=== PATIENT | female | born 1945 | race Caucasian/White ===

== ENCOUNTER → 2021-02-02 08:41 | Outpatient (BNVA) | payer MEDICARE, OTHER, SELFPAY | PROVIDERS: Referring Provider Nurse Practitioner Family; Visit Provider Orthopaedic Surgery | DX: S22.058A Other fracture of T5-T6 vertebra, initial encounter for closed fracture (principal); X58.XXXA Exposure to other specified factors, initial encounter; M41.84 Other forms of scoliosis, thoracic region | CPT/HCPCS: 72072 ==

== ENCOUNTER → 2021-02-06 09:28 | Outpatient (BNVA) | payer MEDICARE, OTHER, SELFPAY | PROVIDERS: Visit Provider Orthopaedic Surgery | DX: Z01.812 Encounter for preprocedural laboratory examination (principal); Z20.822 Contact with and (suspected) exposure to COVID-19 | CPT/HCPCS: 87635 ==

== ENCOUNTER 2021-02-08 08:41 | Outpatient (CLI) | payer MEDICARE, OTHER, SELFPAY ==
--- NOTE | 2021-02-08 08:56 | MR_ITS ---
WS: [id number] MRI THORACIC SPINE WITHOUT CONTRAST TECHNIQUE: Sagittal T1, T2 and STIR imaging. Axial T2 imaging. Noncontrast imaging obtained. CLINICAL INFORMATION: S22.000A - Wedge compression fracture of unspecified thor... COMPARISON: Outside MRI January 27, 2021 FINDINGS: Thoracic curve convex right. Focal thoracic kyphosis at the T5 level due to chronic appearing brennen lety fracture with vertebral plana configuration. Associated sclerosis T5 vertebral body. Associated retropulsion impinges the thoracic cord at the T5 level with moderate central canal stenosis. Mild fl attening of the thoracic cord. Cord signal appears normal. Retropulsion slightly eccentric to the rig ht with impingement on the right hemicord at the T4-5 level. Additional suspected mild acute to subacute compression fractures involving the superior endplates at T12 and L1 compression appears new since January 27, 2021. L1 is only included on the vehicle fuel systems converter imagin g previously. Moderate to severe bilateral bony foraminal narrowing T5-T6. Moderate right T4-5 bony foraminal narro wing. Moderate facet arthropathy in the lower thoracic spine. Otherwise no significant disc protrusions or extrusions. Mild bony foraminal narrowing left T1-T2, ri ght T2-3, right T3-4, bilateral T10-11, and left T11-12. Normal caliber thoracic aorta. Adrenal glands are normal. MR/MR thoracic spin wo con* [id number] IMPRESSION: 1. Moderate thoracic kyphosis at the T5 level with chronic appearing compressi on fracture with vertebral plana configuration. Retropulsion results in moderat e central canal stenosis with indentation and slight flattening of the cervical cord. Cord signal remains normal. This appears stable since outside study. 2. Suspected recent acute to subacute mild compression superior endplates at T 12 and L1 with trace edema. This appears new or better seen compared to the rec ent outside study. 3. Moderate to severe bilateral T5-T6 bony foraminal narrowing. 4. Otherwise mild bony foraminal narrowing described above.
--- NOTE | 2021-02-08 08:56 | MR_ITS ---
WS: [id number] MRI CERVICAL SPINE NONCONTRAST TECHNIQUE: Sagittal T1, T2 and STIR imaging. Axial T2, gradient, and fiesta imaging. CLINICAL INFORMATION: S22.000A - Wedge compression fracture of unspecified thor... COMPARISON: None. FINDINGS: Normal cervical alignment. Disc bulging worse at C5-6. Cord signal is normal. C2-C3: Normal. C3-C4: Normal. C4-C5: Mild disc bulging with osteophytic ridging. Mild facet arthropathy. Mild left foraminal narrow ing. Spinal canal is patent. C5-C6: Shallow disc osteophyte protrusion with slight impingement on the cervical cord. Mild central canal stenosis. Mild to moderate left and mild right bony foraminal narrowing. Mild facet arthropathy . C6-C7: Mild disc bulging. Slight effacement of ventral thecal sac. Mild left and no significant right foraminal narrowing. Spinal canal is patent. C7-T1: Mild bilateral bony foraminal narrowing right greater than left. Spinal canal is patent. Visualized brain stem structures: Normal. Prevertebral soft tissues: Normal. MR/MR cervical spin wo con* [id number] IMPRESSION: 1. Normal cervical alignment. Cord signal is normal. 2. Mild disc bulging worse at C5-6 with slight contact of the cervical cord ec centric to the left with mild central canal stenosis. 3. Mild to moderate bony foraminal narrowing left C5-6. 4. Mild bony foraminal narrowing left C4-5, left C6-7, and right C7-T1
--- NOTE | 2021-02-08 10:00 | CT_ITS ---
WS: [id number] CT THORACIC SPINE TECHNIQUE: Noncontrast CT of the thoracic spine with coronal and sagittal reformatted images. CLINICAL INFORMATION: S22.000A - Wedge compression fracture of unspecified thor... COMPARISON: None. DLP: 1154.[address] scans at [facility] use at least one of these dose optimization techniques: automated e xposure control; mA and/or kV adjustment per patient size (includes targeted exams where dose is matc hed to clinical indication); or iterative reconstruction. FINDINGS: Thoracic curve convex right. Focal thoracic kyphosis at the T5 level due to chronic appearing brennen lety fracture with vertebral plana configuration and sclerosis. Associated retropulsion impinges the thoracic cord at the T5 level with moderate central canal stenosis better seen on the MRI. Pedicles a ppear intact. Persistent fracture cleft involving the anterior T5 vertebral body extending posteriorl y. Mild flattening of the thoracic cord. Retropulsion slightly eccentric to the right at the T4-5 level. Severe bilateral T5-T6 bony foraminal narrowing. Mild recent appearing compression deformities T12 and L1 superior endplates. CT/CT thoracic spin wo con* [id number] IMPRESSION: 1. Mild thoracic curve and thoracic kyphosis centered at the T5 level. Chronic appearing compression fracture T5 with vertebral plana configuration and scler osis. 2. Associated retropulsion T5 vertebral body with moderate central canal steno sis. Pedicles appear intact. 3. Severe bilateral C5-C6 bony foraminal narrowing. 4. Mild recent appearing compression fractures superior endplates T12 and L1 a lso seen on the MRI.
--- NOTE | 2021-02-08 10:15 | CT_ITS ---
WS: [id number] CT CERVICAL SPINE TECHNIQUE: Noncontrast CT of the cervical spine with coronal and sagittal reformatted images. CLINICAL INFORMATION: S22.000A - Wedge compression fracture of unspecified thor... COMPARISON: None. DLP: 1549.[address] scans at [facility] use at least one of these dose optimization techniques: automated e xposure control; mA and/or kV adjustment per patient size (includes targeted exams where dose is matc hed to clinical indication); or iterative reconstruction. FINDINGS: Mild cervical curve. Disc bulging worse at C5-6. Disc desiccation worse at C6-7. Slight anterior hype rtrophic changes. Mastoid air cells are well aerated. C2-C3: Normal. C3-C4: Mild facet arthropathy. Spinal canal and foramen are patent. C4-C5: Tiny central disc osteophyte complex. Spinal canal is patent. Moderate left and no significant right foraminal narrowing. Moderate facet arthropathy. C5-C6: Mild disc bulging with osteophytic ridging. Tiny shallow central protrusion. Mild central pattie l stenosis. Moderate left and mild right bony foraminal narrowing. Mild facet arthropathy. C6-C7: Disc osteophyte complex with endplate ridging. Tiny central protrusion. Mild central canal carmen nosis. Mild left and no significant right foraminal narrowing. C7-T1: Mild disc osteophytic ridging. Mild bilateral bony foraminal narrowing right greater than left . Mild left T1-2 bony foraminal narrowing. Low-attenuation 10 and 12 mm right thyroid nodules. CT/CT cervical spin wo con* [id number] IMPRESSION: 1. Mild cervical curve. Disc bulging worse at C5-C6. Degenerative disc disease worse at C6-7. 2. Mild central canal stenosis C5-C6 and C6-C7. 3. Mild to moderate bony foraminal narrowing worse at left C4-5, left C5-6, an d right C7-T1. 4. Mild left T1-T2 bony foraminal narrowing. 5. Low-attenuation 10 and 12 mm right thyroid nodules. This can be followed up with ultrasound.
== END 2021-02-08 08:42 | disposition home or self-care (01) ==
PROVIDERS: Visit Provider Orthopaedic Surgery
DX: M50.223 Other cervical disc displacement at C6-C7 level (principal); E04.2 Nontoxic multinodular goiter; S22.088A Other fracture of T11-T12 vertebra, initial encounter for closed fracture; S32.018A Other fracture of first lumbar vertebra, initial encounter for closed fracture; X58.XXXA Exposure to other specified factors, initial encounter; M40.204 Unspecified kyphosis, thoracic region
CPT/HCPCS: 72125; 72128; 72141; 72146

== ENCOUNTER 2021-02-10 13:18 | Inpatient (IN) | payer MEDICARE, OTHER, SELFPAY ==
[2021-02-09 12:21] VITALS: BMI 29.2
--- NOTE | 2021-02-09 12:29 | ECG_ITS ---
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 Measurements Intervals [place] Rate: 91 P: 54 UT: 171 QRS: 26 QRSD: 85 T: 54 QT: 377 QTc: 464 Interpretive Statements SINUS RHYTHM POSSIBLE LEFT ATRIAL ENLARGEMENT [-0.1mV P-WAVE IN V1/V2] POSSIBLE INFERIOR MYOCARDIAL INFARCTION , PROBABLY OLD [30 ms Q WAVE IN II/aVF] No previous ECG available for comparison Electronically Signed On 02-10-2021 19:19:43 CDT by Claudia Fay M.D. [email or web address]
[2021-02-09 13:04] LABS: Basophils # 0.1 10^3/uL (0.0-0.1); Basophils % 0.5 %; Eosinophils # 0.2 10^3/uL (0.0-0.8); Eosinophils % 1.7 %; Hematocrit 40.3 % (37.0-47.0); Hemoglobin 13.7 g/dL (11.5-15.3); Lymphocytes # 2.7 10^3/uL (0.8-4.8); Lymphocytes % 21.7 %; Mean Corpuscular Hemoglobin 31.5 pg (28.0-34.0); Mean Corpuscular Volume 92.6 fl (81-99); Mean Platelet Volume 10.4 fL (7.4-10.4); Monocytes # 0.7 10^3/uL (0.2-0.9); Monocytes % 5.8 %; Neutrophils # 8.73 10^3/uL (1.8-7.7); Neutrophils % 69.7 %; Nucleated Red Blood Cells % 0 %; Platelet Count 297 10^3/cmm (130-400); Red Blood Count 4.35 10^6/uL (4.1-5.3); Red Cell Distribution Width 12.4 % (12.1-15.1); White Blood Count 12.5 10^3/uL (4.0-10.0)
[2021-02-09 13:25] LABS: Blood Urea Nitrogen 22 mg/dL (8-23); Calcium 8.8 mg/dL (8.5-10.5); Carbon Dioxide 26 mmol/L (22-29); Chloride 98 mmol/L (98-107); Creatinine Clr Calc Pharmacy 62.0065; Glucose 315 mg/dL (65-115); Osmolality Calculated 301 mOsm/kg (285-295); Sodium 138 mmol/L (136-145)
--- NOTE | 2021-02-09 13:45 | P.ANESASSM_ITS ---
Pre-Anesthetic Assessment Pre-Anesthetic Assessment: Height/Weight: Height 1.63 m Weight 77.111 kg Proposed Procedure: Operation Date: 02/10/21 10:10 Proposed Procedures p Spinal Fusion Posterior Spinal Fusion T2-T8 with decompression at T5 Arthrodesis T2 T6 T7 T8 T5 intrumentation [id number] 34713 57391 24677 74770 81156 05006 S22.00A(Not Applicable) - Sepncer H Nancy, DO Was Beta Josselyn taken within 24 hours: N/A Was Clonidine taken within 24 hours: N/A Social: Social History: No alcohol and No tobacco Exam: Pre-Anes Outpt Exam: alert, oriented x 3, clear to auscultation bilaterally and regular rate & rhythm Airway: Submandibular: WNL MP: 2 CV/HEM: CV/HEM: HTN Metabolic: Metabolic: DM Musc/skel: Musc/skel: Lower Back Pain and Weakness Anesthetic Plan: ASA status: 3 Anesthesia: General Other: A.line Risk of > 500 ml blood loss (7ml/kg in children): No PFSH Anesthesia PFSH: Social History Smoking and tobacco status: never smoked Data Anesthesia CBC & Chem 7: 02/09/21 12:45 02/09/21 12:45 Other Labs: Laboratory Results - last 48 hr 02/09/21 02/09/21 12:45 12:45 WBC 12.5 H RBC 4.35 Hgb 13.7 Hct 40.3 MCV 92.6 MCH 31.5 MCHC 34.0 RDW 12.4 Plt Count 297 MPV 10.4 Neut % (Auto) 69.7 Lymph % (Auto) 21.7 [place] % (Auto) 5.8 Eos % (Auto) 1.7 Baso % (Auto) 0.5 Neut # (Auto) 8.73 H Lymph # (Auto) 2.7 [place] # (Auto) 0.7 Eos # (Auto) 0.2 Baso # (Auto) 0.1 Nucleated RBC % (auto) 0 Nucleated RBCs # 0.0 Sodium 138 Chloride 98 Carbon Dioxide 26 BUN 22 Creatinine 0.7 GFR Calculation Not Reportable Calcium 8.8 Cardiac Studies: No Data to Display
[2021-02-09 13:48] LABS: Anion Gap 17.7 (5-19); Potassium 3.7 mmol/L (3.5-5.1)
[2021-02-10] VITALS (18 sets, daily range): BP systolic 161–210; BP diastolic 88–106; PULSE 89–111; RESP 14–22; TEMP 36.2–37.2; O2SAT 91–97
--- NOTE | 2021-02-10 | XR_ITS ---
WS: [id number] XR thoracic spine 1Vport [id number] REASON FOR EXAM: ADELA OR PICS FINDINGS: Multiple PA images during thoracic spine surgery. Bilateral pedicle screws placed in the mid thoracic spine between T3 and T9. Surgical appliances appear in proper position. XR/XR thoracic spine 1Vport [id number] IMPRESSION: Direct cystic spine pedicle screw placement as above.
--- NOTE | 2021-02-10 | SCC_ITS ---
Procedure Done: 1. T2-T8 Posterior spine fusion 2. T2-T8 Instrumentations 3. T5 laminectomy with partial facetectomies bilateral 4. Use of computer navigation/stereotactactic 5. use of allograft 6. Use of autograft 16 seconds of fluoroscopic guidance, for a cumulative dose of 22.7 mGy, was provided to Dr. Cruz by the radiology department. C-arm images of the thoracic spine were saved for the patient's permanent record. MARTHA
--- NOTE | 2021-02-10 09:20 | P.ANESUD_ITS ---
Pre-Anesthetic Update Pre-Anesthetic Assessment: Date of Surgery/Procedure: 02/10/21 Preop Kandy gnosis: T5 compression fracture Proposed Procedure: Operation Date: 02/10/21 10:10 Proposed Procedures p Spinal Fusion Posterior Spinal Fusion T2-T8 with decompression at T5 Arthrodesis T2 T6 T7 T8 T5 intrumentation [id number] [id number] 70952 06831 48401 53852 49337 78776 S22.00A(Not Applicable) - Spencer H Nancy, DO Any changes to Pre-Anesthetic Assessment?: No Labs Last 48hrs: Laboratory Results - last 48 hr 02/09/21 02/09/21 12:45 12:45 WBC 12.5 H RBC 4.35 Hgb 13.7 Hct 40.3 MCV 92.6 MCH 31.5 MCHC 34.0 RDW 12.4 Plt Count 297 MPV 10.4 Neut % (Auto) 69.7 Lymph % (Auto) 21.7 [place] % (Auto) 5.8 Eos % (Auto) 1.7 Baso % (Auto) 0.5 Neut # (Auto) 8.73 H Lymph # (Auto) 2.7 [place] # (Auto) 0.7 Eos # (Auto) 0.2 Baso # (Auto) 0.1 Nucleated RBC % (a uto) 0 Nucleated RBCs # 0.0 Sodium 138 Potassium 3.7 Chloride 98 Carbon Dioxide 26 Anion Gap 17.7 BUN 22 Creatinine 0.7 GFR Calculation Not Reportable Glucose 315 H Calculated Osmolal ity 301 H Calcium 8.8 Exam: Pre-Anes Outpt Exam: alert, oriented x 3, clear to auscultation bilaterally and regular rate & rhythm Cardiac Studies: No Data to Display
[2021-02-10 09:28] LABS: Glucose Point of Care 230 mg/dL (70-110)
[2021-02-10] MEDS: sodium chloride 0.9% 1,000 ML 30 ML IV (09:28)
--- NOTE | 2021-02-10 09:28 | W.PM.OPSUD ---
Surgery/Procedure H&P Update DATE OF PROCEDURE: February 10, 2021 DATE H&P PERFORMED: 02/02/21 H&P UPDATE INFORMATION: I have reviewed H&P completed within last 30 days, I have examined patient prior to procedure and No changes to prior documentation PREOP DIAGNOSIS: T5 compression fracture PLANNED PROCEDURE: Operation Date: 02/10/21 10:10 Proposed Procedures p Spinal Fusion Posterior Spinal Fusion T2-T8 with decompression at T5 Arthrodesis T2 T6 T7 T8 T5 intrumentation [id number] 21466 95787 79689 54891 02861 [id number] 91674 S22.00A(Not Applicable) - Spencer Cruz DO
[2021-02-10] MEDS: insulin regular-human 100 units/1 mL 10 UNIT IVP (09:42)
[2021-02-10 10:55] LABS: Glucose Point of Care 129 mg/dL (70-110)
--- NOTE | 2021-02-10 10:58 | SUR.OPER ---
family updated of surgical status
[2021-02-10] MEDS: vancomycin 1,000 MG SDV 2000 MG XX (11:08)
--- NOTE | 2021-02-10 12:15 | SUR.OPER ---
family updated with surgical status
[2021-02-10 12:42] LABS: Glucose Point of Care 180 mg/dL (70-110)
--- NOTE | 2021-02-10 12:58 | SUR.OPER ---
family updated of surgical status
--- NOTE | 2021-02-10 13:39 | P.OP_ITS ---
Operative Report Date of procedure: February 10, 2021 Pre-op Diagnosis: T5 compression fracture Post-op diagnosis: same Procedure Done: 1. T2-T8 Posterior spine fusion 2. T2-T8 Instrumentations 3. T5 laminectomy with partial facetectomies bilateral 4. Use of computer navigation/stereotactactic 5. use of allograft 6. Use of autograft Surgeon: Spencer Cruz Anesthesia: General Estimated blood loss (mL): 200 Condition: stable Disposition: PACU Procedure: 1. T2-T8 Posterior spine fusion 2. T2-T8 Instrumentations 3. T5 laminectomy with partial facetectomies 4. Use of computer navigation/stereotactactic 5. use of allograft 6. Use of autograft Patient was brought to the operative suite. After undergoing anesthesia patient was placed in the prone position. All areas of impingement were well-padded. Patient was then prepped and draped in normal sterile fashion. Skin incision was made from T2 down to T9. Subperiosteal dissection was made from the TPs of T2 down to T8. A spinous process clamp hooked to a fiducial was then attached in order to facil itate using computer navigation during the case. The C arm then did the spin. Information was then loaded into the computer. And this was able to facilitate placing screws using navigation. Attention was then brought to placing screws starting at T8. The drill was used to start the hole and then the gearshift that was linked to the computer navigation was then used to find the path through the pedicle. A ball probe was then used to feel to ensure that the pedicle was not breached. And then the screws were placed using computer navigation linked to the computer. The steps were repeated from T8-T6. And then T5 was skipped. And then the screws were placed from T6 up to T2. After the screws were placed attention was then brought to doing the laminectomy. A microscope was brought in and the laminectomy of T5 was completed using high-speed bur Kerrison rongeurs and curved curettes. Once the laminectomy was completed partial facetectomies were performed bilaterally. Once adequate decompression was completed then attention was then brought to placing the rods. Rods were then bent and placed into the pedicle screws from T2 down to T8. And caps were then placed on top of the rods. And the rods were torqued this was done bilaterally and caps were torqued down. Next attention was brought to irrigating the wound once wound was irrigated then the lamina from T2 down to T8 was decorticated with a high-speed bur and then the OsteoMed bone graft was packed into the bone in order to facilitate getting a fusion. Vancomycin powder was then placed a Hemovac drain was placed and the wound was closed with Vicryl 0 Stratus fix. Then 2-0 Vicryl was used followed by 2 oh strata fix Monocryl and glue. And then the wound was closed and sealed with a Silverlon dressing. And the patient was transferred to the PACU in stable condition.
[2021-02-10] MEDS: fentaNYL 50 mcg/mL INJ 2mL IVP ×2 (13:59→14:17)
--- NOTE | 2021-02-10 14:09 | ANE.PACU2 ---
Inpatient post-anesthesia follow up: Airway intact: Yes Vital signs: Temperature 97.1 F Pulse Rate 93 Respiratory Rate 16 Blood Pressure 181/100 Pulse Oximetry 94 Oxygen Delivery Me thod Room Air Oxygen Flow Rate Fraction of Inspir ed Oxygen Hydration adequate: Yes Nausea and vomiting: No Pain level: 3 Mental status: Baseline Additional Comments: Hypertension
[2021-02-10] MEDS: gabapentin 300 mg Capsule PO ×2 (15:22→21:04)
[2021-02-10] MEDS: lactated ringers 1,000 ML 90 ML IV (15:22)
[2021-02-10] MEDS: morphine 4 mg/mL SDV 1 mL 2 MG IVP ×2 (15:27→23:08)
[2021-02-10 15:52] LABS: Glucose Point of Care 271 mg/dL (70-110)
--- NOTE | 2021-02-10 16:20 | PM.CONSULT ---
Providers/Reason For Consult Consulting Physician/Specialty*: Hospitalist Reason for Consult*: Medical management Attending Physician: Spencer Cruz DO History of Present Illness History of Present Illness Very pleasant 75-year-old lady with history of DM 2 with peripheral neuropathy, HTN, HLD, petit mal seizures, who did not improve with conservative management of T5 compression fracture with continued pain, progressive weakness, due to which he underwent multi vertebral posterior spine fusion, T5 laminectomy with uneventful procedure, with about 200 Tylenol blood loss, currently is back up on medical surgical floor. Consultation was requested to hospitalist service due to diabetes and other medical comorbidities. She is doing well postoperatively but feels her mouth is dry, she is thirsty. Feels hot, asking to remove several of the blankets. She states that preoperatively she was otherwise at baseline state of health. Her son is accompanying her, corroborating her history. States diabetes been well controlled. She takes insulin, both short and long-acting, as well as semaglutide. She occasionally gets low blood sugars which she states she feels. Review of Systems Const: Denies: fever(s), chills, body aches or malaise Eyes: Denies: change in vision or eye redness ENMT: Denies: throat pain, oral sores or ear or mastoid pain Card: Denies: chest pain, edema, pre-syncope or dyspnea on exertion Resp: Denies: dyspnea, productive cough, change in phlegm color or hemoptysis GI: Denies: abdominal pain, nausea, vomiting, diarrhea, constipation, hematochezia or melena : Denies: flank pain, urinary frequency or hematuria Musc: Reports: back pain; Denies: joint swelling or joint redness Skin/Breast: Denies: rash, sores or new lesions Neuro: Denies: headache(s), numbness in extremities, weakness in extremities, dizziness, confusion or seizure-like activity Endo: Denies: polyuria or polydipsia Gregory/Lymph: Denies: easy bleeding or purpura All/Imm: Denies: urticaria, throat swelling or tongue swelling Meds/Allergies Home Medications and Allergies Home Medications Medication Instructions Recorded Confirmed Last Taken Type TLSO brace #1 ea 02/02/21 02/02/21 Unknown Rx Wheel Chair #1 ea 02/02/21 02/02/21 Unknown Rx atorvastatin 10 mg tablet 10 mg PO DAILY 02/02/21 02/10/21 02/09/21 History erenumab-aooe 70 mg/mL 70 mg SUBCUT .monthly ml 02/02/21 02/10/21 02/03/21 History subcutaneous auto-injector ethosuximide 250 mg capsule 250 mg PO QID cap 02/02/21 02/10/21 02/09/21 History gabapentin 300 mg capsule 300 mg PO TID 02/02/21 02/10/21 02/09/21 History insulin aspart U-100 100 unit/mL 24 unit SUBCUT TID ml 02/02/21 02/10/21 02/09/21 History (3 mL) subcutaneous pen insulin glargine 100 unit/mL 55 unit SUBCUT DAILY ml 02/02/21 02/10/21 02/09/21 History subcutaneous solution lisinopril 40 mg tablet 40 mg PO DAILY 02/02/21 02/10/21 02/09/21 History meloxicam 15 mg tablet 15 mg PO DAILY 02/02/21 02/10/21 02/09/21 History semaglutide 0.25 mg SUBCUT .weekly ml 02/02/21 02/10/21 02/06/21 History cyanocobalamin (vitamin B-12) DIRECTED 02/09/21 Unknown History hydrochlorothiazide 25 mg PO DAILY 02/09/21 02/10/21 02/09/21 History venlafaxine 150 mg PO DAILY 02/09/21 02/10/21 02/09/21 History verapamil 240 mg PO DAILY 02/09/21 02/10/21 02/09/21 History Allergies Allergy/AdvReac Type Severity Reaction Status Date / Time sulfamethoxazole Allergy unknown Verified 02/10/21 09:01 [From ] trimethoprim [From ] Allergy unknown Verified 02/10/21 09:01 Current Medications Current Medications Generic Name Dose Route Start Last Admin Trade Name Goranq PRN Reason Stop Dose Admin Gabapentin 300 mg 02/10/21 15:00 02/10/21 15:22 Gabapentin 300 Mg Capsule PO 300 mg TID SHARONA Administration Lactated Ringer's 1,000 mls @ 90 mls/hr 02/10/21 13:30 02/10/21 15:22 Lactated Ringers IV 90 mls/hr .[id number] SHARONA Administration Insulin Aspart 24 unit 02/10/21 15:00 02/10/21 16:14 Insulin Aspart 100 Unit/1 Ml SUBCUT 24 unit TID SHARONA Administration Morphine Sulfate 2 mg 02/10/21 13:26 02/10/21 15:27 Morphine 4 Mg/Ml Sdv 1 Ml IVP 2 mg Q4H PRN Administration SEVERE PAIN PFSH Acute PFSH: Medical History Diabetes Hypercholesteremia Hypertension Seasonal allergies Seizure disorder Vitamin D deficiency Surgical History H/O basal cell carcinoma excision H/O total hysterectomy Family History Other No significant family history Social History Smoking and tobacco status: never smoked Alcohol intake: never Substance/Drug Use: never Lives independently: Yes Household members: family Marital status: Vitals/I&O/Wt Last Vital Signs Temp 97.8 F 02/10/21 15:27 Pulse 102 H 02/10/21 15:40 Resp 17 02/10/21 15:40 BP 179/89 02/10/21 15:40 Pulse Ox 94 02/10/21 15:40 02/10/21 02/10/21 02/10/21 06:59 14:59 22:59 Intake Total 1060 / 1060 Output Total 950 / 950 Balance 110 / 110 Weight last 48 hrs Weight 77.111 kg Physical Exam Narrative: EXAM NARRATIVE: Son at bedside. Const: COMMON NORMALS: no acute distress and patient oriented x3 GENERAL APPEARANCE: lethargic (Sleepy but wakes up easily.) ORIENTATION/CONSCIOUSNESS: Yes lethargic (Sleepy but wakes up easily.) HENMT: COMMON NORMALS: oropharynx normal Neck/C-Spine: COMMON NORMALS: no JVD Resp: COMMON NORMALS: normal respiratory effort and clear to auscultation bilaterally AUSCULTATION: clear to auscultation bilaterally Cardio: COMMON NORMALS: no JVD, regular rhythm, S1 normal heart sound present, S2 normal heart sound present and No murmurs present (Cardio) RHYTHM: regular rhythm HEART SOUNDS: S1 normal heart sound present and S2 normal heart sound present GI: COMMON NORMALS: Normal to inspection, nondistended, normoactive bowel sounds present, Soft to palpation and non-tender PALPATION: Yes Soft to palpation Back/Pelvis: OTHER: Drain with sanguinous drainage Extremity: COMMON NORMALS: no joint enlargement and no pedal edema Neuro: COMMON NORMALS: patient oriented x3 and moves all extremities SENSORIUM/ORIENTATION: Yes lethargic (Sleepy but wakes up easily.) Skin: COMMON NORMALS: no rashes or lesions noted GENERAL SKIN EXAM: no rashes or lesions noted Urinary Catheter Management^: Marshall: Cath Placed During This Visit: yes Urinary Catheter Date of Insertion: 02/10/21 Urinary Catheter Time of Insertion: 10:30 A&P Assessment and plan (1) S/P fusion of thoracic spine: Uneventful. About 200 cc blood loss. Drain in place. Continue incentive spirometer. Pain control as needed. Tomorrow consider remove Marshall. PT. Disposition planning. Status: Acute (2) DM type 2 (diabetes mellitus, type 2): Diabetic diet. Continue Lantus. For now hold any further NovoLog until she resumes oral intake. Sliding scale insulin. Hold Ozempic while in the hospital to reduce risk of hypoglycemia. Status: Acute (3) Hypertension: Continue home medications. Pain control. Monitor blood pressures. Status: Acute Additional A&P Information History of petit mal seizure: Continue ethosuximide. Reports no recent seizures. HLD Consult Attestations Medical Necessity Statement: As per primary team. Continue admission for postoperative care after posterior thoracic spine fusion after failure of conservative management of T5 compression fracture. Coding Level of Care Code Acute Field Assistant for [facility] Fwd Diagnoses S/P fusion of thoracic spine Z98.1 DM type 2 (diabetes mellitus, type 2) E11.9 Hypertension I10
[2021-02-10] MEDS: ondansetron 2 mg/ML SDV 2 mL 4 MG IVP (16:27)
--- NOTE | 2021-02-10 16:55 | PC.PT ---
Patient declined attempted physical therapy evaluation at this time, agreeable to reattempt in a.m.
[2021-02-10 17:16] LABS: Glucose Point of Care 247 mg/dL (70-110)
[2021-02-10] MEDS: ketorolac 30 mg/mL INJ IVP (17:20)
[2021-02-10] MEDS: lisinopril 20 mg Tablet 40 MG PO (17:30)
[2021-02-10] MEDS: docusate sodium 100 mg Capsule PO (18:47)
[2021-02-10 20:39] LABS: Glucose Point of Care 195 mg/dL (70-110)
[2021-02-10] MEDS: HYDROcodone-acetaminophen 5-325 mg Tablet PO (21:00)
[2021-02-11] VITALS (7 sets, daily range): BP systolic 156–182; BP diastolic 76–93; PULSE 91–108; RESP 16–18; TEMP 36.6–37.3; O2SAT 91–95
[2021-02-11] MEDS: HYDROcodone-acetaminophen 5-325 mg Tablet PO ×4 (02:03→19:49)
[2021-02-11] MEDS: lactated ringers 1,000 ML 90 ML IV ×2 (03:50→13:23)
[2021-02-11 05:13] LABS: Basophils % 0.2 %; Eosinophils % 0.2 %; Hematocrit 36.4 % (37.0-47.0); Hemoglobin 11.8 g/dL (11.5-15.3); Lymphocytes # 2.5 10^3/uL (0.8-4.8); Lymphocytes % 14.7 %; Mean Corpuscular HGB Conc 32.4 g/dL (30.0-36.0); Mean Corpuscular Hemoglobin 30.5 pg (28.0-34.0); Mean Corpuscular Volume 94.1 fl (81-99); Mean Platelet Volume 10.1 fL (7.4-10.4); Monocytes # 1.4 10^3/uL (0.2-0.9); Monocytes % 8.6 %; Neutrophils # 12.65 10^3/uL (1.8-7.7); Neutrophils % 75.6 %; Nucleated Red Blood Cells % 0 %; Platelet Count 263 10^3/cmm (130-400); Red Blood Count 3.87 10^6/uL (4.1-5.3); Red Cell Distribution Width 12.6 % (12.1-15.1); White Blood Count 16.7 10^3/uL (4.0-10.0)
[2021-02-11 05:34] LABS: Anion Gap 13.6 (5-19); Blood Urea Nitrogen 18 mg/dL (8-23); Calcium 9.1 mg/dL (8.5-10.5); Carbon Dioxide 27 mmol/L (22-29); Chloride 104 mmol/L (98-107); Creatinine Clr Calc Pharmacy 62.0065; Glucose 158 mg/dL (65-115); Osmolality Calculated 297 mOsm/kg (285-295); Potassium 3.6 mmol/L (3.5-5.1); Sodium 141 mmol/L (136-145)
[2021-02-11 06:41] LABS: Glucose Point of Care 135 mg/dL (70-110)
[2021-02-11] MEDS: lisinopril 20 mg Tablet 40 MG PO (08:28)
[2021-02-11] MEDS: gabapentin 300 mg Capsule PO ×3 (08:28→21:36)
[2021-02-11] MEDS: atorvastatin 40 mg Tablet 20 MG PO (08:28)
[2021-02-11] MEDS: hydroCHLOROthiazide 25 mg Tablet PO (08:28)
[2021-02-11] MEDS: docusate sodium 100 mg Capsule PO ×2 (08:28→17:13)
[2021-02-11] MEDS: verapamil ER 240 mg Tablet PO (08:28)
[2021-02-11] MEDS: venlafaxine ER (24HR) 150 mg Capsule PO (08:28)
[2021-02-11] MEDS: enoxaparin 40 mg/0.4 mL Syringe SUBCUT (08:28)
[2021-02-11] MEDS: insulin glargine 100 units/1 mL 55 UNIT SUBCUT (08:35)
[2021-02-11 08:36] LABS: Glucose Point of Care 220 mg/dL (70-110)
--- NOTE | 2021-02-11 08:37 | P.PN_ITS ---
Subjective Subjective: Interval history: Patient is doing well. Pain is controlled. Vitals/I&O/Wt Last Vital Signs Temp 98 F 02/11/21 07:11 Pulse 91 02/11/21 07:11 Resp 16 02/11/21 07:11 BP 158/80 02/11/21 07:11 Pulse Ox 94 02/11/21 07:11 02/10/21 02/11/21 02/11/21 22:59 06:59 14:59 Intake Total 120 / 1180 1260 / 2440 Output Total 1825 / 2775 200 / 2975 Balance -1705 / -1595 1060 / -535 Weight last 48 hrs Weight 170 lb Physical Exam Narrative: EXAM NARRATIVE: Resting comfortably in bed. Bilateral lower extremities are 5-5 strength. This point the left side felt stronger than it did preoperatively yesterday. Urinary Catheter Management^: Marshall: Cath Placed During This Visit: yes Reason for Continuing Indwelling Catheter: Accurate Measurement of Urinary Output in Critically Ill Patients Urinary Catheter Date of Insertion: 02/10/21 Urinary Catheter Time of Insertion: 10:30 Data : 02/11/21 04:44 02/11/21 04:44 A&P Assessment and plan (1) S/P fusion of thoracic spine: Postop day #1 T2-T8 posterior spine fusion. My plan is to discharge her home tomorrow. I would like to get home health set up. I will DC her drain and DC her Marshall today. And to get her up with physical therapy today. Status: Acute Attestations Medical Necessity Statement*: work with therapy and pain control anticipate d/c tomorrow if can get Home health set up Coding Level of Care Code Acute Conditioning Machine Operator for Joség Fwd Diagnoses S/P fusion of thoracic spine Z98.1
[2021-02-11] MEDS: morphine 4 mg/mL SDV 1 mL 2 MG IVP (09:36)
[2021-02-11 10:26] LABS: Glucose Point of Care 188 mg/dL (70-110)
--- NOTE | 2021-02-11 11:38 | P.PN_ITS ---
Subjective Subjective: Interval history: She is having some pain after having the drain and Marshall catheter taken out. Received some pain medication. Anticipates that it should help. Denies shortness of breath. No chest pain. Vitals/I&O/Wt Last Vital Signs Temp 97.8 F 02/11/21 11:17 Pulse 102 H 02/11/21 11:17 Resp 16 02/11/21 11:17 BP 164/79 02/11/21 11:17 Pulse Ox 92 02/11/21 11:17 02/10/21 02/11/21 02/11/21 22:59 06:59 14:59 Intake Total 120 / 1180 1260 / 2440 300 / 300 Output Total 1825 / 2775 200 / 2975 Balance -1705 / -1595 1060 / -535 300 / 300 Weight last 48 hrs Weight 77.111 kg Physical Exam Const: COMMON NORMALS: no acute distress, patient oriented x3 and alert ORIENTATION/CONSCIOUSNESS: Yes awake OTHER: Antalgic positioning. HENMT: COMMON NORMALS: oropharynx normal Neck/C-Spine: COMMON NORMALS: no JVD Resp: COMMON NORMALS: normal respiratory effort and clear to auscultation leticia aterally AUSCULTATION: clear to auscultation bilaterally Cardio: COMMON NORMALS: no JVD, regular rhythm, S1 normal heart sound present, S2 normal heart sound present and No murmurs present (Cardio) RHYTHM: regular rhythm HEART SOUNDS: S1 normal heart sound present and S2 normal heart sound present GI: COMMON NORMALS: Normal to inspection, nondistended, normoactive bowel sounds present, Soft to palpation and non-tender PALPATION: Yes Soft to palpation Back/Pelvis: OTHER: Dressing over spine. No surrounding erythema. Drain removed. Extremity: COMMON NORMALS: no joint enlargement and no pedal edema Neuro: COMMON NORMALS: patient oriented x3 and moves all extremities SENSORIUM/ORIENTATION: Yes alert Skin: COMMON NORMALS: no rashes or lesions noted GENERAL SKIN EXAM: no rashes or lesions noted Urinary Catheter Management^: Marshall: Cath Placed During This Visit: yes Reason for Continuing Indwelling Catheter: Accurate Measurement of Urinary Output in Critically Ill Patients Urinary Catheter Date of Insertion: 02/10/21 Urinary Catheter Time of Insertion: 10:30 Data : 02/11/21 04:44 02/11/21 04:44 A&P Assessment and plan (1) S/P fusion of thoracic spine: Drain and Marshall removed today. Continue pain control. States she is working with incentive spirometer. Uneventful surgery. About 200 cc blood loss. PT. Disposition planning. Status: Acute (2) DM type 2 (diabetes mellitus, type 2): Resuming decreased dose NovoLog. Continue sliding scale for now. Diabetic diet. Continue Lantus. Hold Ozempic while in the hospital to reduce risk of hypoglycemia. Status: Acute (3) Hypertension: Continue home medications. Pain control. Monitor blood pressures. Status: Acute Additional A&P Information History of petit mal seizure: Continue ethosuximide. For some reason not resume. Discussed with RN, she will see if son had taken the medications back yesterday, if so may need to bring it back. She reports no recent seizures. HLD Attestations Medical Necessity Statement*: As per primary team, continue postoperative care after thoracic spine fusion after lack of response of conservative measures for T5 compression fracture with persistent pain, weakness in a lady with underlying metabolic syndrome, optimization of glucose control. Coding Level of Care Code Acute Sporting Goods Salesperson for Joség Fwd Diagnoses S/P fusion of thoracic spine Z98.1 DM type 2 (diabetes mellitus, type 2) E11.9 Hypertension I10
[2021-02-11 16:55] LABS: Glucose Point of Care 258 mg/dL (70-110)
[2021-02-11 19:41] LABS: Glucose Point of Care 347 mg/dL (70-110)
[2021-02-11 20:36] LABS: Glucose Point of Care 359 mg/dL (70-110)
[2021-02-11] MEDS: ETHOSUXIMIDE 250 MG 250 EACH PO (21:59)
--- NOTE | 2021-02-12 01:20 | PC.NURSE ---
1919 OBSERVED ON THE FLOOR, patoent observed by house sup kneeling on the floor, patient attempting to go to bedside commode. charge nurse and a second nurse assisted patient back to bed, this nurse assessed patient, A&O x3, speech clear, denied hitting head, no red or raised area noted, scratches observed to left back and one near center of back surgical dressing to upper dry and has dime size drainage, area circled by off going nurse, redness noted to bilat knees, patient strongly encouraged to use call light or yell for assist. patient verbalized understanding, Dr. Holley notified, call placed to son Harmeet and notified of patient's fall. @2029 patient noted on side of bed with both legs dangling on side of bed, nurse assisted patient, to C with another staff assist, staff held most of patients weight during transfer, bed alarm activated.
[2021-02-12 03:44] VITALS: BP 169/83; PULSE 95; RESP 18; TEMP 37.3; O2SAT 92
[2021-02-12 06:11] LABS: Basophils % 0.3 %; Eosinophils % 0.3 %; Hematocrit 36.7 % (37.0-47.0); Hemoglobin 11.3 g/dL (11.5-15.3); Lymphocytes # 1.9 10^3/uL (0.8-4.8); Lymphocytes % 12.1 %; Mean Corpuscular HGB Conc 30.8 g/dL (30.0-36.0); Mean Corpuscular Hemoglobin 30.7 pg (28.0-34.0); Mean Corpuscular Volume 99.7 fl (81-99); Mean Platelet Volume 11.3 fL (7.4-10.4); Monocytes # 1.5 10^3/uL (0.2-0.9); Monocytes % 9.6 %; Neutrophils # 12.21 10^3/uL (1.8-7.7); Neutrophils % 77.1 %; Nucleated Red Blood Cells % 0 %; Platelet Count 100 10^3/cmm (130-400); Red Blood Count 3.68 10^6/uL (4.1-5.3); Red Cell Distribution Width 12.5 % (12.1-15.1); White Blood Count 15.8 10^3/uL (4.0-10.0)
[2021-02-12] MEDS: lactated ringers 1,000 ML 90 ML IV ×3 (06:20→19:31)
[2021-02-12] MEDS: HYDROcodone-acetaminophen 5-325 mg Tablet PO ×4 (06:20→20:33)
[2021-02-12 06:36] LABS: Blood Urea Nitrogen 10 mg/dL (8-23); Calcium 8.9 mg/dL (8.5-10.5); Carbon Dioxide 27 mmol/L (22-29); Chloride 98 mmol/L (98-107); Creatinine Clr Calc Pharmacy 62.0065; Glucose 206 mg/dL (65-115); Osmolality Calculated 287 mOsm/kg (285-295); Sodium 136 mmol/L (136-145)
[2021-02-12 06:48] LABS: Anion Gap 14.8 (5-19); Potassium 3.8 mmol/L (3.5-5.1)
[2021-02-12 07:10] LABS: Glucose Point of Care 220 mg/dL (70-110)
[2021-02-12] MEDS: enoxaparin 40 mg/0.4 mL Syringe SUBCUT (07:36)
[2021-02-12 07:40] VITALS: BP 157/80; PULSE 92; RESP 18; TEMP 36.8; O2SAT 94
--- NOTE | 2021-02-12 08:10 | P.PN_ITS ---
Subjective Subjective: Interval history: pt resting comfortably in bed Vitals/I&O/Wt Last Vital Signs Temp 98.3 F 02/12/21 07:40 Pulse 92 02/12/21 07:40 Resp 18 02/12/21 07:40 BP 157/80 02/12/21 07:40 Pulse Ox 94 02/12/21 07:40 02/11/21 02/12/21 02/12/21 22:59 06:59 14:59 Intake Total 230 / 1590 1000 / 2590 Output Total 720 / 720 0 / 720 Balance -490 / 870 1000 / 1870 Physical Exam Narrative: EXAM NARRATIVE: sleeping in bed Urinary Catheter Management^: Marshall: Cath Placed During This Visit: yes, but has since been removed by the nurse Reason for Continuing Indwelling Catheter: Accurate Measurement of Urinary Output in Critically Ill Patients Urinary Catheter Date of Insertion: 02/10/21 Urinary Catheter Time of Insertion: 10:30 Date Urinary Catheter Removed: 02/11/21 Data : 02/12/21 05:45 02/12/21 05:45 A&P Assessment and plan (1) S/P fusion of thoracic spine: POD #2 thorcaic fusion OK to D/C when home therapy can be set up Status: Acute Attestations Medical Necessity Statement*: awiating home therapy and case manegment evaluation Coding Level of Care Code Acute City Weighmaster for Franchesca Rosas Diagnoses S/P fusion of thoracic spine Z98.1
[2021-02-12] MEDS: venlafaxine ER (24HR) 150 mg Capsule PO (08:23)
[2021-02-12] MEDS: insulin glargine 100 units/1 mL 55 UNIT SUBCUT (08:23)
[2021-02-12] MEDS: atorvastatin 40 mg Tablet 20 MG PO (08:23)
[2021-02-12] MEDS: gabapentin 300 mg Capsule PO ×3 (08:23→20:35)
[2021-02-12] MEDS: lisinopril 20 mg Tablet 40 MG PO (08:23)
[2021-02-12] MEDS: hydroCHLOROthiazide 25 mg Tablet PO (08:23)
[2021-02-12] MEDS: docusate sodium 100 mg Capsule PO ×2 (08:24→16:52)
[2021-02-12] MEDS: ETHOSUXIMIDE 250 MG 250 EACH PO ×4 (08:26→20:34)
[2021-02-12] MEDS: verapamil ER 240 mg Tablet PO (08:26)
--- NOTE | 2021-02-12 09:40 | USCV_ITS ---
Wilda Dominguez Age: 75 Gender: F : 1945 Exam Date: 02/12/2021 10:10 Ordering Phys: Ronnell Pham MD Technologist: Yris Steel [place] [facility] [place]: [place] HISTORY: Right lower extremity swelling. PROCEDURES: Comparison: none available. Venous duplex imaging was performed in only the right lower extremity. The following venous structures were evaluated: common femoral vein, profunda vein, proximal portion of the greater saphenous vein, superficial femoral vein, and the popliteal vein. In addition, the posterior tibial and peroneal trunk were evaluated. Serial compression, augmentation maneuvers, and spectral Doppler flow evaluation were performed. FINDINGS: No evidence of DVT seen in any vessel visualized at this time. The veins were found to be easily compressible with spontaneous blood flow. Non pulsatile flow pattern. CONCLUSIONS No evidence of DVT in the above-mentioned identifiable veins. Dr Danni Bowen MD [facility] (Electronically Signed) Final Date: 12 February 2021 16:28 S
--- NOTE | 2021-02-12 09:45 | XRR_ITS ---
PROCEDURE INFORMATION: Exam: XR Right Ankle Exam date and time: 02/12/2021 9:45 AM Age: 75 years old Clinical indication: Pain; Ankle; Right; Additional info: Swelling, after fall TECHNIQUE: Imaging protocol: XR Right ankle. Views: 3 or more views. COMPARISON: No relevant prior studies available. FINDINGS: Bones/joints: Displaced avulsion fracture arising from the distal fibula, of uncertain age. Prominent calcaneal spur. Soft tissues: Soft tissue swelling. Calcification at the Achilles tendon attachment site. XR/XR ankle RT min 3V* [id number] IMPRESSION: Displaced avulsion fracture arising from the distal fibula, of uncertain age, along with soft tissue swelling.
--- NOTE | 2021-02-12 09:59 | P.PN_ITS ---
Subjective Subjective: Interval history: States she is having difficult time regaining her strength. [place] weak to get to the bathroom. Last night reportedly she had fallen down found kneeling on the floor. Provided with bedside commode. Denies shortness of breath. Denies chest pain or pressure. No headache or dizziness. No nausea vomiting or diarrhea. No unilateral numbness or weakness. Discussed with her decreasing platelet level. She is not aware of prior platelet problems. Discussed with her consideration of different possibilities. Could be medication related from on medications she had previously received. Discussed possibility of HIT, other possible causes. She is agreeable for additional investigation. With generalized weakness, discussed with her also obtain a UA. She also has had the right ankle swelling since before the admission as pointed out by her son yesterday, discussed with her we will additionally assessed this with imaging including duplex to exclude DVT. Vitals/I&O/Wt Last Vital Signs Temp 98.3 F 02/12/21 07:40 Pulse 92 02/12/21 07:40 Resp 18 02/12/21 07:40 BP 157/80 02/12/21 07:40 Pulse Ox 94 02/12/21 07:40 02/11/21 02/12/21 02/12/21 22:59 06:59 14:59 Intake Total 230 / 1590 1000 / 2590 350 / 350 Output Total 720 / 720 0 / 720 Balance -490 / 870 1000 / 1870 350 / 350 Physical Exam Const: COMMON NORMALS: no acute distress, patient oriented x3 and alert ORIENTATION/CONSCIOUSNESS: Yes awake OTHER: Sitting up in bed. Appears more comfortable. HENMT: COMMON NORMALS: oropharynx normal Neck/C-Spine: COMMON NORMALS: no JVD Resp: COMMON NORMALS: normal respiratory effort and clear to auscultation bilaterally AUSCULTATION: clear to auscultation bilaterally Cardio: COMMON NORMALS: no JVD, regular rhythm, S1 normal heart sound present, S2 normal heart sound present and No murmurs present (Cardio) RHYTHM: regular rhythm HEART SOUNDS: S1 normal heart sound present and S2 normal heart sound present GI: COMMON NORMALS: Normal to inspection, nondistended, normoactive bowel sounds present, Soft to palpation and non-tender PALPATION: Yes Soft to palpation Extremity: COMMON NORMALS: no joint enlargement GENERAL: Yes edema (persistent edema R ankle) Neuro: COMMON NORMALS: patient oriented x3 and moves all extremities SENSORIUM/ORIENTATION: Yes alert Skin: COMMON NORMALS: no rashes or lesions noted GENERAL SKIN EXAM: no rashes or lesions noted Urinary Catheter Management^: Marshall: Cath Placed During This Visit: yes, but has since been removed by the nurse Reason for Continuing Indwelling Catheter: Accurate Measurement of Urinary Output in Critically Ill Patients Urinary Catheter Date of Insertion: 02/10/21 Urinary Catheter Time of Insertion: 10:30 Date Urinary Catheter Removed: 02/11/21 Data : 02/12/21 05:45 02/12/21 05:45 A&P Assessment and plan (1) S/P fusion of thoracic spine: Feels she is having difficulty regaining her strength. Will check UA. Additional instigation of thrombocytopenia. Discussed with orthopedics. Switch DVT prophylaxis to Eliquis. Continue to encourage incentive spirometer. PT. Disposition planning. Status: Acute (2) Thrombocytopenia: Platelets down to 100,000. Recheck this afternoon. Discussed with her regarding possibilities. Could be secondary to cefazolin or one of the other medication she had received. I do not see medications currently active by brief review that should be causing thrombocytopenia. Requesting LDH, haptoglobin, peripheral smear. Stop Lovenox, switch to Eliquis. Requesting HIT antibody, GEN. Status: Acute (3) DM type 2 (diabetes mellitus, type 2): Increase NovoLog dose. Continue sliding scale for now. Diabetic diet. Continue Lantus. Hold Ozempic while in the hospital to reduce risk of hypoglycemia. Status: Acute (4) Hypertension: Continue home medications. Pain control. Monitor blood pressures. Status: Acute Additional A&P Information History of petit mal seizure: Continue ethosuximide. For some reason not resume. Discussed with RN, she will see if son had taken the medications back yesterday, if so may need to bring it back. She reports no recent seizures. Right ankle swelling: After a fall preadmission. Discussed with Ortho. Assess x-ray. Assess venous duplex. HLD Attestations Medical Necessity Statement*: Continue admission for assessment management following thoracic spine fusion, assessment of acute thrombocytopenia. Coding Level of Care Code Acute Clinical Project Manager for g Fwd Diagnoses S/P fusion of thoracic spine Z98.1 Thrombocytopenia D69.6 DM type 2 (diabetes mellitus, type 2) E11.9 Hypertension I10
[2021-02-12 11:08] LABS: Glucose Point of Care 298 mg/dL (70-110)
[2021-02-12 11:17] LABS: Lactate Dehydrogenase 341 U/L (135-214)
[2021-02-12 11:20] LABS: INR 1.21 (0.8-1.2)
[2021-02-12 11:32] VITALS: BP 152/75; PULSE 96; RESP 18; TEMP 37; O2SAT 93
[2021-02-12 13:24] LABS: LAB Peripheral Smear Sent for Review
[2021-02-12 15:26] VITALS: BP 143/80; PULSE 92; RESP 16; TEMP 36.4; O2SAT 92
[2021-02-12 15:31] LABS: Basophils % 0.2 %; Eosinophils # 0.1 10^3/uL (0.0-0.8); Eosinophils % 0.5 %; Hematocrit 34.9 % (37.0-47.0); Hemoglobin 11.3 g/dL (11.5-15.3); Lymphocytes # 1.9 10^3/uL (0.8-4.8); Lymphocytes % 11.2 %; Mean Corpuscular HGB Conc 32.4 g/dL (30.0-36.0); Mean Corpuscular Hemoglobin 30.3 pg (28.0-34.0); Mean Corpuscular Volume 93.6 fl (81-99); Mean Platelet Volume 10.1 fL (7.4-10.4); Monocytes # 1.7 10^3/uL (0.2-0.9); Monocytes % 10.1 %; Neutrophils # 13.05 10^3/uL (1.8-7.7); Neutrophils % 77.3 %; Nucleated Red Blood Cells % 0 %; Platelet Count 230 10^3/cmm (130-400); Red Blood Count 3.73 10^6/uL (4.1-5.3); Red Cell Distribution Width 12.5 % (12.1-15.1); White Blood Count 16.9 10^3/uL (4.0-10.0)
--- NOTE | 2021-02-12 15:41 | PC.NURSE ---
Dr. Cruz notified at this time of right ankle xray results. No new orders received at this time.
[2021-02-12 15:50] LABS: Add Urine Microscopic? NO; Charge for UA Resulting for Rev
[2021-02-12 15:56] LABS: Bilirubin Urine Neg (Negative); Blood Urine Neg (Negative); Glucose Urine UA 2+ (Normal); Ketones Urine Negative (Negative); Leukocyte Esterase Urine Negative (Negative); Nitrate Urine Negative (Negative); Protein Urine Neg (Negative); Specific Gravity, Urine 1.005 (1.005-1.030); Urine Appearance Clear (CLEAR); Urine Color Straw (Yellow); Urobilinogen Urine Norm (Negative); pH Urine 7 (5-7)
[2021-02-12 16:44] LABS: Glucose Point of Care 172 mg/dL (70-110)
[2021-02-12 20:00] VITALS: BP 146/79; PULSE 90; RESP 18; TEMP 37.5; O2SAT 94
[2021-02-12 20:39] LABS: Glucose Point of Care 120 mg/dL (70-110)
[2021-02-13 03:21] VITALS: BP 125/76; PULSE 93; RESP 18; TEMP 36.9; O2SAT 94
[2021-02-13] MEDS: HYDROcodone-acetaminophen 5-325 mg Tablet PO ×2 (03:25→11:56)
[2021-02-13 05:17] LABS: Basophils # 0.1 10^3/uL (0.0-0.1); Basophils % 0.4 %; Eosinophils # 0.3 10^3/uL (0.0-0.8); Hemoglobin 10.9 g/dL (11.5-15.3); Lymphocytes # 1.8 10^3/uL (0.8-4.8); Lymphocytes % 12.2 %; Mean Corpuscular HGB Conc 32.1 g/dL (30.0-36.0); Mean Corpuscular Hemoglobin 30.4 pg (28.0-34.0); Mean Platelet Volume 10.6 fL (7.4-10.4); Monocytes # 1.3 10^3/uL (0.2-0.9); Monocytes % 9.2 %; Neutrophils # 10.77 10^3/uL (1.8-7.7); Neutrophils % 75.4 %; Nucleated Red Blood Cells % 0 %; Platelet Count 217 10^3/cmm (130-400); Red Blood Count 3.58 10^6/uL (4.1-5.3); Red Cell Distribution Width 12.6 % (12.1-15.1); White Blood Count 14.3 10^3/uL (4.0-10.0)
[2021-02-13 05:39] LABS: Anion Gap 11.2 (5-19); Blood Urea Nitrogen 12 mg/dL (8-23); Carbon Dioxide 31 mmol/L (22-29); Chloride 99 mmol/L (98-107); Creatinine Clr Calc Pharmacy 62.0065; Glucose 260 mg/dL (65-115); Osmolality Calculated 295 mOsm/kg (285-295); Potassium 3.2 mmol/L (3.5-5.1); Sodium 138 mmol/L (136-145)
[2021-02-13 06:15] LABS: Glucose Point of Care 276 mg/dL (70-110)
[2021-02-13 07:10] VITALS: BP 135/66; PULSE 73; RESP 17; TEMP 36.7; O2SAT 93
--- NOTE | 2021-02-13 07:25 | PM.DCS ---
Discharge Providers Date of Admission: 02/10/21 13:18 Date of Discharge: February 13, 2021 Attending Provider at Admission: Spencer Cruz DO Attending Provider at Discharge: Spencer Cruz DO Diagnoses at Discharge Discharge Diagnosis (1) S/P fusion of thoracic spine: Status: Acute (2) Thrombocytopenia: Status: Acute (3) DM type 2 (diabetes mellitus, type 2): Status: Acute (4) Hypertension: Status: Acute Reason for Visit Reason for Visit: spinal fusion Hospital Course Hospital Course patient admitted 02/10/21 had T2-T8 PSF. Her stay was uneventful. She had an x-ray of ankle showed avusion fracture. Clinically it is old. Platelets dropped but returned to normal next day. She will be d/c on 02/13/21. Physical Exam Narrative: EXAM NARRATIVE: non tender to fibula X-ray likely show old avusion fracture resting in bed Urinary Catheter Management^: Marshall: Cath Placed During This Visit: yes, but has since been removed by the nurse Reason for Continuing Indwelling Catheter: Accurate Measurement of Urinary Output in Critically Ill Patients Urinary Catheter Date of Insertion: 02/10/21 Urinary Catheter Time of Insertion: 10:30 Date Urinary Catheter Removed: 02/11/21 Discharge Data Data Completed and Pending: Completed Studies During Hospitalization Category Date Time Status XR ankle RT min 3 V* [id number] Routine Exams 02/12/21 09:45 Completed XR thoracic spine 1Vport [id number] Rout ine Exams 02/10/21 [place] [id number] Routin e Ultrasound 02/12/21 09:40 Completed Pending at discharge Category Date Time Status Heparin Induced P latelet AB Routine Lab 02/12/21 10:55 Received Miscellaneous Trixie t Routine Lab 02/12/21 10:55 Received Labs from last 24 hours 02/13/21 02/13/21 02/13/21 06:10 04:36 04:36 WBC 14.3 H RBC 3.58 L Hgb 10.9 L Hct 34.0 L MCV 95.0 MCH 30.4 MCHC 32.1 RDW 12.6 Plt Count 217 MPV 10.6 H Neut % (Auto) 75.4 Lymph % (Auto) 12.2 Bollinger % (Auto) 9.2 Eos % (Auto) 2.0 Baso % (Auto) 0.4 Neut # (Auto) 10.77 H Lymph # (Auto) 1.8 Bollinger # (Auto) 1.3 H Eos # (Auto) 0.3 Baso # (Auto) 0.1 Nucleated RBC % (a uto) 0 Nucleated RBCs # 0.0 Haptoglobin Heparin Require Pa t PT INR Sodium 138 Potassium 3.2 L Chloride 99 Carbon Dioxide 31 H Anion Gap 11.2 BUN 12 Creatinine 0.5 GFR Calculation Not Reportable Glucose 260 H POC Glucose 276 H Calculated Osmolal ity 295 Calcium 9.0 Lactate Dehydrogen ase Urine Color Urine Appearance Urine pH Ur Specific Gravit y Urine Protein Urine Glucose (UA) Urine Ketones Urine Blood Urine Nitrate Urine Bilirubin Urine Urobilinogen Ur Leukocyte Paulina ase Heparin-induced Pl t Ab Misc Test Referenc e 02/12/21 02/12/21 02/12/21 19:31 16:37 15:15 WBC 16.9 H RBC 3.73 L Hgb 11.3 L Hct 34.9 L MCV 93.6 D MCH 30.3 MCHC 32.4 D RDW 12.5 Plt Count 230 D MPV 10.1 Neut % (Auto) 77.3 Lymph % (Auto) 11.2 Bollinger % (Auto) 10.1 Eos % (Auto) 0.5 Baso % (Auto) 0.2 Neut # (Auto) 13.05 H Lymph # (Auto) 1.9 Bollinger # (Auto) 1.7 H Eos # (Auto) 0.1 Baso # (Auto) 0.0 Nucleated RBC % (a uto) 0 Nucleated RBCs # 0.0 Haptoglobin Heparin Require Pa t PT INR Sodium Potassium Chloride Carbon Dioxide Anion Gap BUN Creatinine GFR Calculation Glucose POC Glucose 120 H 172 H Calculated Osmolal ity Calcium Lactate Dehydrogen ase Urine Color Urine Appearance Urine pH Ur Specific Gravit y Urine Protein Urine Glucose (UA) Urine Ketones Urine Blood Urine Nitrate Urine Bilirubin Urine Urobilinogen Ur Leukocyte Paulina ase Heparin-induced Pl t Ab Misc Test Referenc e 02/12/21 02/12/21 02/12/21 14:49 10:55 10:55 WBC RBC Hgb Hct MCV MCH MCHC RDW Plt Count MPV Neut % (Auto) Lymph % (Auto) Bollinger % (Auto) Eos % (Auto) Baso % (Auto) Neut # (Auto) Lymph # (Auto) Bollinger # (Auto) Eos # (Auto) Baso # (Auto) Nucleated RBC % (a uto) Nucleated RBCs # Haptoglobin Heparin Require Pa t Pending PT 15.70 H INR 1.21 H Sodium Potassium Chloride Carbon Dioxide Anion Gap BUN Creatinine GFR Calculation Glucose POC Glucose Calculated Osmolal ity Calcium Lactate Dehydrogen ase Urine Color Straw Urine Appearance Clear Urine pH 7 Ur Specific Gravit y 1.005 Urine Protein Neg Urine Glucose (UA) 2+ H Urine Ketones Negative Urine Blood Neg Urine Nitrate Negative Urine Bilirubin Neg Urine Urobilinogen Norm Ur Leukocyte Paulina ase Negative Heparin-induced Pl t Ab Pending Misc Test Referenc e 02/12/21 02/12/21 02/12/21 10:55 10:43 05:45 WBC RBC Hgb Hct MCV MCH MCHC RDW Plt Count MPV Neut % (Auto) Lymph % (Auto) Bollinger % (Auto) Eos % (Auto) Baso % (Auto) Neut # (Auto) Lymph # (Auto) Bollinger # (Auto) Eos # (Auto) Baso # (Auto) Nucleated RBC % (a uto) Nucleated RBCs # Haptoglobin 264.0 H Heparin Require Pa t PT INR Sodium Potassium Chloride Carbon Dioxide Anion Gap BUN Creatinine GFR Calculation Glucose POC Glucose 298 H Calculated Osmolal ity Calcium Lactate Dehydrogen ase 341 H Urine Color Urine Appearance Urine pH Ur Specific Gravit y Urine Protein Urine Glucose (UA) Urine Ketones Urine Blood Urine Nitrate Urine Bilirubin Urine Urobilinogen Ur Leukocyte Paulina ase Heparin-induced Pl t Ab Misc Test Referenc e Pending Vitals: Last Vital Signs Temp 98.0 F 02/13/21 07:10 Pulse 73 02/13/21 07:10 Resp 17 02/13/21 07:10 BP 135/66 02/13/21 07:10 Pulse Ox 93 02/13/21 07:10 Discharge Plan Discharge Patient Disposition: Home Condition: Stable Prescriptions: New hydrocodone-acetaminophen 5-325 mg tablet 1 - 2 tab PO .Q4-6H Qty: 40 RF: 0 Continued Aimovig Autoinjector 70 mg/mL auto-injector 70 mg SUBCUT .monthly RF: 0 ethosuximide 250 mg capsule 250 mg PO QID RF: 0 gabapentin 300 mg capsule 600 mg PO BID RF: 0 Lantus U-100 Insulin 100 unit/mL solution 55 unit SUBCUT DAILY RF: 0 lisinopril 40 mg tablet 40 mg PO DAILY RF: 0 meloxicam 15 mg tablet 15 mg PO DAILY RF: 0 insulin aspart U-100 [Novolog Flexpen U-100 Insulin] 100 unit/mL (3 mL) insulin pen See Rx Instructions .ROUTE .COMPLEX RF: 0 Ozempic 0.25 mg or 0.5 mg(2 mg/1.5 mL) pen injector 0.25 mg SUBCUT .weekly RF: 0 (DME) TLSO brace See Rx Instructions .Route .MEDSUPPLY Qty: 1 RF: 0 (DME) Wheel Chair See Rx Instructions .Route .MEDSUPPLY Qty: 1 RF: 0 verapamil 240 mg Tablet Extended Release 240 mg PO DAILY RF: 0 hydrochlorothiazide 25 mg Tablet 25 mg PO DAILY RF: 0 venlafaxine 150 mg Tablet Extended Release 24hr 150 mg PO DAILY RF: 0 cyanocobalamin (vitamin B-12) 1,000 mcg/mL Kit 1,000 mcg IM Q30D RF: 0 Lipitor 10 mg tablet 10 mg PO DAILY RF: 0 ethosuximide 250 mg Capsule 250 mg PO TID RF: 0 Discharge Orders: Discharge Order (Routine); Ordered 02/13/21 Ordered By: Spencer Cruz Other Ambulatory Orders: DME: [employer] (Order) Location: None Selected Ordered By: Spencer Cruz Discharge Diet: Advance as tolerated Discharge Activity: Limit activity as instructed Patient Instructions: Opioid Safety Activity Restrictions/Additional Instructions: Thank you for [facility] for your care! The following is a list of instructions, from your provider, to follow upon your discharge to ensure you have the optimal recovery from your recent injury orsurgery. Follow-up care is a pittman part of your treatment and safety. Be sure to make and go to all appointments, and call your doctor if you are having problems. If you do not already have a follow-up appointment made, call Dr. Cruz office in the next 1-3 days to make follow up appointment for january at [phone]. It is also a good idea to know your test results and keep a list of the medicines you take. Medications will be prescribed for you at your provider's discretion. These medications are to be used as instructed; if they are taken more often that prescribed they will not be refilled early and in most cases will not be refilled at all. > When a refill is needed,you should contact eric peña 2-3 business days before your prescription runs out. Medications will NOT be refilled by production mechanic providers after hours! > Many pain medications contain Tylenol (Acetaminophen). Do not consume more than 4,000 mg of Tylenol per day in total with any combination ofmedications. > Pain medications can cause constipation. Please use an over the counter stool softener as directed, while taking pain medications. Consulty our local pharmacist with questions or recommendations on stool softeners. If constipation persists, contact our office or your primary care provider. > While under our care,you are not to receive pain medications or other controlled substances from any other provider unless our office is notified and approves. Any attempts to do so will result in refusal to prescribe any further pain medications and possible dismissal from our practice. KEEP DRESSING ON AT ALL TIMES ? Showering is permitted, however we ask that you do not take a bath, sit in a whirlpool / Jacuzzi, or go swimming for 1 month. For only the first 2 days after surgery, lt wilt be necessary for you to cover your wound/dressing with plastic and tape to keep it dry. ? Walking is essential for the healing process after surgery. We would like you to slowly advance your walking. This should be done on relatively flat clear ground (inside or out) or can be done on a treadmill. Remember this goal does not have to happen all at once, slowly increase your distance and duration. This can be broken into more more than one walk per day as tolerated. Patients who walk as directed after surgery rarely require Physical Therapy. In the unlikely event this issue arises your provider will direct hospital staff to make the appropriate arrangements. ? No lifting over 5 pounds {a gallon of milk) or bending/twisting until further notice. Each of these activities places an unnecessary amount of stress onto the body and can impede the delicate healing process. > Instead of bending at the waist, keep your back straight and bend at the knees. > Instead of twisting your torso, keep your back straight and turn your entire body with your feet. ? You may sleep in any position which makes you comfortable. Many patients find comfort sleeping in a reclining chair. It is not abnormal to have difficulty sleeping for the first several weeks following your surgery. We recommend trying Benadry! or Tylenol PM as directed to help with your sleeping difficulties. Both medications are over the counter and available withoutprescription. ? NO SMOKING!!! Smoking dramatically increases the probability of developing postoperative wound infections. ? Common complaints after lumbar and/or thoracic spine surgery include, but are not limited to: numbness and/or tingling in the legs, pain around the incision and surrounding tissues, muscle spasms, or stiffness of the middle to low back. Contact our office if these symptoms persist or if an acute change occurs. ? No driving for the first 3-5days, and not while taking narcotics [] until seen at your follow-up appointment and cleared. There are no restrictions for riding on short trips, however if you take a longer trip, arrangements should be made to make regular stops to get out of the vehicle and stretch . ? Swelling is an unfortunate event that will take place with any surgery and is the primary source of your postoperative discomfort. While walking and regular approved activities helps control inflammation, there are additional steps you can take to minimizeswelling. > Place ice over the surgical site and surrounding tissue for twenty minutes, followed by applying a low/medium heat (heating pad) for an additional twenty minutes every 1-2 hours as needed for painrelief. > You may use of over the counter anti-inflammatory medications (Ibuprofen, Motrin, Aleve, Advil, etc) as directed on the package label. These types of medicines wm significantly reduce the amount of discomfort you experience after surgery from swelling. It should be noted that if you have and allergy to any of these medications, or a history of ulcers or kidney disease you should consult you primary care provider prior to starting these medications. Discharge Attestations Time Spent in Discharge Care*: less than 30 min Quality Metrics Clinical Quality Measures During this hospital stay, did patient experience: None Coding Level of Care Code Acute [facility] FW DC note Diagnoses S/P fusion of thoracic spine Z98.1 Thrombocytopenia D69.6 DM type 2 (diabetes mellitus, type 2) E11.9 Hypertension I10
[2021-02-13] MEDS: hydroCHLOROthiazide 25 mg Tablet PO (08:12)
[2021-02-13] MEDS: lisinopril 20 mg Tablet 40 MG PO (08:12)
[2021-02-13] MEDS: insulin glargine 100 units/1 mL 55 UNIT SUBCUT (08:12)
[2021-02-13] MEDS: docusate sodium 100 mg Capsule PO (08:12)
[2021-02-13] MEDS: verapamil ER 240 mg Tablet PO (08:12)
[2021-02-13] MEDS: venlafaxine ER (24HR) 150 mg Capsule PO (08:12)
[2021-02-13] MEDS: atorvastatin 40 mg Tablet 20 MG PO (08:12)
[2021-02-13] MEDS: gabapentin 300 mg Capsule PO (08:12)
[2021-02-13] MEDS: apixaban 5 mg Tablet 2.5 MG PO (08:13)
[2021-02-13] MEDS: ETHOSUXIMIDE 250 MG 250 EACH PO (08:19)
--- NOTE | 2021-02-13 10:51 | PC.SOCIAL ---
IMM Update: pg 2 of IMM updated and reviewed w/ patient. Copy provided.
--- NOTE | 2021-02-13 11:02 | P.PN_ITS ---
Subjective Subjective: Interval history: Hospital course, labs appreciated. Comfortably sitting in bed on examination. States he is still sleepy after the pain medications. States pain is well controlled. Denies any nausea vomiting, headache. Family concerned about bowel regimen. We discussed about taking pain medicines as needed and bowel regimen with MiraLAX. Vitals/I&O/Wt Last Vital Signs Temp 98.0 F 02/13/21 07:10 Pulse 73 02/13/21 07:10 Resp 17 02/13/21 07:10 BP 135/66 02/13/21 07:10 Pulse Ox 93 02/13/21 07:10 02/12/21 02/13/21 02/13/21 22:59 06:59 14:59 Intake Total 1285 / 1753 240 / 240 Output Total 470 / 470 Balance 815 / 1283 240 / 240 Physical Exam Narrative: EXAM NARRATIVE: Son at bedside. Const: COMMON NORMALS: no acute distress, patient oriented x3 and alert ORIENTATION/CONSCIOUSNESS: Yes awake OTHER: Sitting up in bed. Appears more comfortable. HENMT: COMMON NORMALS: oropharynx normal Neck/C-Spine: COMMON NORMALS: no JVD Resp: COMMON NORMALS: normal respiratory effort and clear to auscultation bilaterally AUSCULTATION: clear to auscultation bilaterally Cardio: COMMON NORMALS: no JVD, regular rhythm, S1 normal heart sound present, S2 normal heart sound present and No murmurs present (Cardio) RHYTHM: regular rhythm HEART SOUNDS: S1 normal heart sound present and S2 normal heart sound present GI: COMMON NORMALS: Normal to inspection, nondistended, normoactive bowel sounds present, Soft to palpation and non-tender PALPATION: Yes Soft to palpation Back/Pelvis: OTHER: Dressing over spine. No surrounding erythema. Drain removed. Extremity: COMMON NORMALS: no joint enlargement GENERAL: Yes edema (persistent edema R ankle) Neuro: COMMON NORMALS: patient oriented x3 and moves all extremities SENSORIUM/ORIENTATION: Yes alert Skin: COMMON NORMALS: no rashes or lesions noted GENERAL SKIN EXAM: no rashes or lesions noted Urinary Catheter Management^: Marshall: Cath Placed During This Visit: yes, but has since been removed by the nurse Reason for Continuing Indwelling Catheter: Accurate Measurement of Urinary Output in Critically Ill Patients Urinary Catheter Date of Insertion: 02/10/21 Urinary Catheter Time of Insertion: 10:30 Date Urinary Catheter Removed: 02/11/21 Data : 02/13/21 04:36 02/13/21 04:36 A&P Assessment and plan (1) S/P fusion of thoracic spine: PT/OT/anticoagulation as per surgical team. Hemoglobin stable. Working well with physical therapy. I-S. Status: Acute (2) Thrombocytopenia: Platelets count 100,000 yesterday most likely error in labs. Repeat platelet counts and subsequent check in the a.m. has remained stable. No bleeding. Blood work sent yesterday regarding extensive work-up for t hrombocytopenia?awaiting. Status: Acute (3) DM type 2 (diabetes mellitus, type 2): Increase NovoLog dose. Continue sliding scale for now. Diabetic diet. Continue Lantus. Hold Ozempic while in the hospital to reduce risk of hypoglycemia. Status: Acute (4) Hypertension: Continue home medications. Pain control. Monitor blood pressures. Status: Acute Additional A&P Information History of petit mal seizure: Continue ethosuximide. For some reason not resume. Discussed with RN, she will see if son had taken the medications back yesterday, if so may need to bring it back. She reports no recent seizures. Right ankle swelling: After a fall preadmission. Discussed with Ortho. Assess x-ray. Assess venous duplex. Patient will be discharged from medical point of view. Should follow-up with primary care provider within 1 week. MiraLAX for bowel regimen. Attestations Medical Necessity Statement*: As per primary team. Time Spent in Patient Care: Greater than 35 minutes Coding Level of Care Code Acute Behavioral Therapist for [facility] Fwd Diagnoses S/P fusion of thoracic spine Z98.1 Thrombocytopenia D69.6 DM type 2 (diabetes mellitus, type 2) E11.9 Hypertension I10
[2021-02-13 11:05] VITALS: BP 129/69; PULSE 76; RESP 18; TEMP 36.7; O2SAT 93
[2021-02-13 11:38] LABS: Glucose Point of Care 281 mg/dL (70-110)
[2021-02-13 12:00] VITALS: BP 129/69; PULSE 76; RESP 18; TEMP 36.7; O2SAT 93
--- NOTE | 2021-02-14 15:09 | PC.SOCIAL ---
discharge follow up call made, spoke with pts son. home health was in the home at the time for a visit. son reports patient is taking medications as prescribed with pain relief. patient hasn't had a bm yet but is taking miralax. they are aware of follow up appointment with Dr. Cruz. specification writer discussed lifting restrictions and wound care with son, he expresses that he had read the discharge paperwork and was aware.
[2021-02-15 13:42] LABS: Heparin-Induced Platelet AB Negative (Negative)
== END 2021-02-13 12:02 | disposition home health service (06) | DRG 460 ==
LOC: MEDSURG 13:21
PROVIDERS: Anesthesiology; Internal Medicine; Admitting Provider Orthopaedic Surgery; Visit Provider Orthopaedic Surgery
PROC: 0RG707J Fusion of 2 to 7 Thoracic Vertebral Joints with Autologous Tissue Substitute, Posterior Approach, Anterior Column, Open Approach (ICD-10-PCS; CPT 22612; principal; 2021-02-10 09:50)
DX: S22.050A Wedge compression fracture of T5-T6 vertebra, initial encounter for closed fracture (principal); X58.XXXA Exposure to other specified factors, initial encounter; E11.42 Type 2 diabetes mellitus with diabetic polyneuropathy; I10 Essential (primary) hypertension; E78.5 Hyperlipidemia, unspecified; G40.A09 Absence epileptic syndrome, not intractable, without status epilepticus; Z85.828 Personal history of other malignant neoplasm of skin; E88.81 Metabolic syndrome and other insulin resistance; S82.831A Other fracture of upper and lower end of right fibula, initial encounter for closed fracture; Z79.4 Long term (current) use of insulin
CPT/HCPCS: 36415; 36416; 72020; 72125; 72128; 72141; 72146; 73610; 76000; 80048; 80500; 81003; 82962; 83010; 83615; 85025; 85610; 86022; 93005; 93971; 96372; 96374; 97110; 97116; 97161; 97530; C1713; J0690; J1100; J1644; J1650; J1815 ×2; J1885; J2270; J2405; J2704; J2710; J3010; J3370; J3490; J7030

== ENCOUNTER → 2021-03-28 10:27 | Outpatient (BNVA) | payer MEDICARE, OTHER, SELFPAY | PROVIDERS: Visit Provider Orthopaedic Surgery | DX: Z98.1 Arthrodesis status (principal); Z98.890 Other specified postprocedural states | CPT/HCPCS: 72070 ==

== ENCOUNTER → 2021-05-11 09:33 | Outpatient (BNVA) | payer MEDICARE, OTHER, SELFPAY | PROVIDERS: Visit Provider Physician Assistant | DX: Z48.89 Encounter for other specified surgical aftercare (principal); Z98.1 Arthrodesis status; M43.9 Deforming dorsopathy, unspecified | CPT/HCPCS: 72070; 72120 ==

== ENCOUNTER → 2021-12-07 09:04 | Outpatient (BNVA) | payer MEDICARE, OTHER, SELFPAY | PROVIDERS: Visit Provider Physician Assistant | DX: Z47.89 Encounter for other orthopedic aftercare (principal); Z98.890 Other specified postprocedural states; Z98.1 Arthrodesis status | CPT/HCPCS: 72070; 99213 ==

== ENCOUNTER 2022-07-18 18:21 | Emergency (ER) | payer MEDICARE, OTHER, SELFPAY ==
[2022-07-18 18:31] VITALS: BP 138/81; PULSE 94; RESP 14; TEMP 36.8; O2SAT 95
--- NOTE | 2022-07-18 19:01 | CTR_ITS ---
PROCEDURE INFORMATION: Exam: CT Cervical Spine Without Contrast Exam date and time: 07/18/2022 7:28 PM Age: 77 years old Clinical indication: Injury or trauma; Fall; Blunt trauma; Additional info: Fall, neck pain TECHNIQUE: Imaging protocol: Computed tomography of the cervical spine without contrast. Radiation optimization: All CT scans at this facility use at least one of these dose optimization techniques: automated exposure control; mA and/or kV adjustment per patient size (includes targeted exams where dose is matched to clinical indication); or iterative reconstruction. REPORTING DATA: Count of CT and Cardiac NM exams in prior 12 months: This patient has received [address] and 0 known cardiac nuclear medicine studies in the 12 months prior to the current study. COMPARISON: CT cervical spin wo con* [id number] 02/08/2021 10:13 AM RADIATION DOSE METRICS: Total DLP (mGy-cm): 172.17 FINDINGS: Bones/joints: The vertebral body stature is intact. No fracture. Trace anterior degenerative subluxation of C5 on C6. Mild disc space narrowing with degenerative endplate changes at C5-C6. Severe disc space narrowing with degenerative endplate changes at C6-C7. The facets are intact with hypertrophic degenerative changes. No significant foraminal or central canal stenosis identified. Posterior mechanical and bony fusion in the upper thoracic spine, beginning at T2. Lungs: Lung apices are normal. Thyroid: Sound suspected thyroid nodules, measuring less than 1.5 cm. No imaging follow-up is recommended. Soft tissues: Unremarkable. CT/CT cervical spin wo con* [id number] IMPRESSION: 1. No fracture or acute finding. 2. Multilevel degenerative changes. COMMENTS: Consistent with the [place] [employer]'s Incidental Findings Committee white paper (J Am Gayathri Radiol 2015): In patients aged 35 years and older with an incidental thyroid nodule equal to or greater than 1.[address], MRI or extrathyroidal US, further evaluation with dedicated thyroid US is recommended for patients with normal life expectancy and without comorbidities. For smaller nodules without suspicious features, no further evaluation or follow up is recommended.
--- NOTE | 2022-07-18 19:01 | CTR_ITS ---
PROCEDURE INFORMATION: Exam: CT Head Without Contrast Exam date and time: 07/18/2022 7:25 PM Age: 77 years old Clinical indication: Injury or trauma; Fall; Abrasion and blunt trauma (contusions or hematomas); Forehead; Additional info: Fall, right frontal hematoma TECHNIQUE: Imaging protocol: Computed tomography of the head without contrast. Radiation optimization: All CT scans at this facility use at least one of these dose optimization techniques: automated exposure control; mA and/or kV adjustment per patient size (includes targeted exams where dose is matched to clinical indication); or iterative reconstruction. REPORTING DATA: Count of CT and Cardiac NM exams in prior 12 months: This patient has received [address] and 0 known cardiac nuclear medicine studies in the 12 months prior to the current study. COMPARISON: CT cervical spin wo con* [id number] 02/08/2021 10:13 AM RADIATION DOSE METRICS: Total DLP (mGy-cm): 981.38 FINDINGS: Brain: Moderate cortical volume loss. Mild hypodensities in supratentorial periventricular and subcortical white matter, consistent with microangiopathy. No intracranial hemorrhage. Cerebral ventricles: No ventriculomegaly. Paranasal sinuses: Visualized sinuses are unremarkable. No fluid levels. Mastoid air cells: Visualized mastoid air cells are well aerated. Orbital cavities: Prior cataract surgery. Bones/joints: Unremarkable. No acute fracture. Soft tissues: Large hematoma in the right frontal scalp, extending to the right periorbital soft tissues. Vasculature: No hyperdense artery. CT/CT head wo con* [id number] IMPRESSION: 1. No fracture or intracranial hemorrhage. 2. Right frontal scalp and periorbital hematoma.
--- NOTE | 2022-07-18 19:04 | ED_ITS ---
HPI - Fall General: Chief Complaint: Fall Stated Complaint: Injury Head Time Seen by Provider: 07/18/22 18:40 History of Present Illness: This 77-year-old female with a history of diabe jan, hypertension and chronic back pain presents to the ER for evaluation right frontal hematoma and altered sensorium. Son, who lives near patient noted that when he talked the patient this morning, he noticed that patient was slow to respond to questions. He would occasionally prompt her before she would answer simple questions. At that time, he did not notice any facial injury/swelling on patient. When he got off work this evening, he went by to see patient and noticed that there was hematoma on the right side of the forehead. In addition, patient could not recall what she did during the day. Patient could not say how the hematoma came about. So he brought in patient for evaluation. Son adds that yesterday patient had an upper GI endoscopy and up until 6 PM last night, patient was at her usual state of health. So last known well was 6 PM last night. Patient denies any new injuries besides the right side of the forehead. She is slow to answer questions but she knows she is in the hospital, knows the month and who the president is. She follows instructions and has no focal neurodeficit. Associated symptoms-after fall: Reports neck pain (chronic); Denies chest pain, headache(s) or lightheadedness Review of Systems Const: Denies: chills, body aches or change in appetite Eyes: Denies: change in vision or eye discharge ENMT: Reports: other (Swelling right side of forehead); Denies: throat pain, dental pain or nasal discharge Card: Denies: chest pain or lightheadedness : Denies: dysuria Musc: Reports: neck pain (chronic) and back pain (Chronic) Neuro: Denies: headache(s) or weakness in extremities Psych: Denies: depression All/Imm: Denies: urticaria or tongue swelling PFSH ED PFSH: Medical History Diabetes Hypercholesteremia Hypertension Seasonal allergies Seizure disorder Vitamin D deficiency Surgical History H/O basal cell carcinoma excision H/O total hysterectomy Family History Other No significant family history Social History Smoking and tobacco status: never smoked Alcohol intake: never Lives independently: Yes Household members: family Marital status: Physical Exam Const: COMMON NORMALS: no acute distress, patient oriented x3, no limitations and alert HENMT: COMMON NORMALS: normocephalic HEAD & SCALP: normocephalic HEAD IMAGES: 1. Frontal hematoma Eye: COMMON NORMALS: EOMs intact bilaterally Neck/C-Spine: OTHER: Limitation of neck movement due to pain. Chest: COMMONS NORMALS: normal inspection of the chest Resp: COMMON NORMALS: normal respiratory effort, No retractions, No use of accessory muscles and clear to auscultation bilaterally AUSCULTATION: clear to auscultation bilaterally Cardio: COMMON NORMALS: regular rate, regular rhythm and No murmurs present (Cardio) RATE: regular rate RHYTHM: regular rhythm GI: COMMON NORMALS: Normal to inspection, nondistended, normoactive bowel sounds present and non-tender : COMMON NORMALS: Yes no CVA tenderness BLADDER/KIDNEY EXAM: Yes no CVA tenderness Back/Pelvis: COMMON NORMALS: no CVA tenderness Extremity: GENERAL: Yes normal exam except as noted Neuro: COMMON NORMALS: patient oriented x3 and no focal motor deficits SENSORIUM/ORIENTATION: Yes alert Psych: COMMON NORMALS: mental status grossly normal and cooperative Course Vital Signs: Vital signs: Vital Signs Temperature 98.3 F 07/18/22 18:31 Pulse Rate 94 07/18/22 18:31 Respiratory Rate 14 07/18/22 18:31 Blood Pressure 164/92 07/18/22 19:06 Pulse Oximetry 94 07/18/22 19:06 Oxygen Delivery Me thod 07/18/22 18:31 MDM - Fall Medical Decision Making Medical decision making: History as above. Patient has no focal neurologic deficit to suggest a TIA/CVA. During the course of her stay in the ER, she became more responsive and was able to answer questions right away. CT brain is negative for any acute intracranial process. I believe that she sustained a head injury with concussive symptoms. The symptoms are expected to improve/resolve with time. She was advised to follow- up with her primary care physician for reevaluation. Reasons to return were discussed. Patient and son verbalized understanding and agree with the plan. Lab Data 07/18/22 19:00 07/18/22 19: Radiology Impressions Cervical Spine CT 07/18/22 19: IMPRESSION: 1. No fracture or acute finding. 2. Multilevel degenerative changes. COMMENTS: Consistent with the [employer] [employer]'s Incidental Findings Committee white paper (J Am Gayathri Radiol 2015): In patients aged 35 years and older with an incidental thyroid nodule equal to or greater than 1.[address], MRI or extrathyroidal US, further evaluation with dedicated thyroid US is recommended for patients with normal life expectancy and without comorbidities. For smaller nodules without suspicious features, no further evaluation or follow up is recommended. Head CT 07/18/22 19: IMPRESSION: 1. No fracture or intracranial hemorrhage. 2. Right frontal scalp and periorbital hematoma. Laboratory Results WBC 13.4 10^3/uL (4.0-10.0) H 07/18/22 19: RBC 4.52 10^6/uL (4.1-5.3) 07/18/22 19:00 Hgb 13.6 g/dL (11.5-15.3) 07/18/22 19: Hct 40.7 % (37.0-47.0) 07/18/22 19:00 MCV 90.0 fl (81-99) 07/18/22 19:00 MCH 30.1 pg (28.0-34.0) 07/18/22 19: MCHC 33.4 g/dL (30.0-36.0) 07/18/22 19: RDW 12.6 % (12.1-15.1) 07/18/22 19:00 Plt Count 238 10^3/cmm (130-400) 07/18/22 19: MPV 10.4 fL (7.4-10.4) 07/18/22 19:00 Neut % (Auto) 80.1 % 07/18/22 19:00 Lymph % (Auto) 14.2 % 07/18/22 19: [place] % (Auto) 5.1 % 07/18/22 19: Eos % (Auto) 0.1 % 07/18/22 19:00 Baso % (Auto) 0.2 % 07/18/22 19:00 Neut # (Auto) 10.68 10^3/uL (1.8-7.7) H 07/18/22 19:00 Lymph # (Auto) 1.9 10^3/uL (0.8-4.8) 07/18/22 19:00 [place] # (Auto) 0.7 10^3/uL (0.2-0.9) 07/18/22 19:00 Eos # (Auto) 0.0 10^3/uL (0.0-0.8) 07/18/22 19:00 Baso # (Auto) 0.0 10^3/uL (0.0-0.1) 07/18/22 19:00 Nucleated RBC % (auto) 0 % 07/18/22 19:00 Nucleated RBCs # 0.0 /100WBC 07/18/22 19:00 Sodium 136 mmol/L (136-145) 07/18/22 19:00 Potassium 3.6 mmol/L (3.5-5.1) 07/18/22 19:00 Chloride 99 mmol/L (98-107) 07/18/22 19:00 Carbon Dioxide 25 mmol/L (22-29) 07/18/22 19:00 Anion Gap 15.6 (5-19) 07/18/22 19:00 BUN 20 mg/dL (8-23) 07/18/22 19:00 Creatinine 0.7 mg/dL (0.5-0.9) 07/18/22 19:00 GFR Calculation Not Reportable 07/18/22 19:00 Glucose 174 mg/dL (65-115) H 07/18/22 19:00 POC Glucose 170 mg/dL (70-110) H 07/18/22 19:04 Calculated Osmolality 289 mOsm/kg (285-295) 07/18/22 19:00 Calcium 9.9 mg/dL (8.5-10.5) 07/18/22 19:00 Total Bilirubin 0.3 mg/dL (0.15-1.2) 07/18/22 19:00 AST 15 U/L (0-32) 07/18/22 19:00 ALT 11 U/L (0-33) 07/18/22 19:00 Alkaline Phosphatase 115 U/L (35-105) H 07/18/22 19:00 Total Protein 7.2 g/dL (6.6-8.7) 07/18/22 19:00 Albumin 4.4 g/dL (3.5-5.2) 07/18/22 19:00 Globulin 2.8 g/dL (1.3-4.6) 07/18/22 19:00 Discharge Plan Discharge Patient Disposition: Home Clinical Impression: Traumatic hematoma of forehead, Closed head injury, Concussion, Fall Condition: Stable Prescriptions: No Action Aimovig Autoinjector 70 mg/mL auto-injector 70 mg SUBCUT .monthly ethosuximide 250 mg capsule 250 mg PO QID gabapentin 300 mg capsule 600 mg PO BID Lantus U-100 Insulin 100 unit/mL solution 55 unit SUBCUT DAILY lisinopril 40 mg tablet 40 mg PO DAILY meloxicam 15 mg tablet 15 mg PO DAILY insulin aspart U-100 [Novolog FlexPen U-100 Insulin] 100 unit/mL (3 mL) insulin pen See Rx Instructions .ROUTE .COMPLEX Rx Instructions: PER SLIDING SCALE Ozempic 0.25 mg or 0.5 mg(2 mg/1.5 mL) pen injector 0.25 mg SUBCUT .weekly Rx Instructions: MONDAYS ([facility] [place]) TLSO brace See Rx Instructions .Route .MEDSUPPLY Qty: 1 0RF Rx Instructions: As directed, made by LAURY&O ([facility] [place]) Wheel Chair See Rx Instructions .Route .MEDSUPPLY Qty: 1 0RF Rx Instructions: As directed ([facility] [place]) Physical Therapy See Rx Instructions .Route .MEDSUPPLY Qty: 1 0RF Rx Instructions: Increase PT to 3 times/week for strengthening and gait training. verapamil 240 mg Tablet Extended Release 240 mg PO DAILY hydrochlorothiazide 25 mg Tablet 25 mg PO DAILY venlafaxine 150 mg Tablet Extended Release 24hr 150 mg PO DAILY cyanocobalamin (vitamin B-12) 1,000 mcg/mL Kit 1,000 mcg IM Q30D Lipitor 10 mg tablet 10 mg PO DAILY ethosuximide 250 mg Capsule 250 mg PO TID hydrocodone-acetaminophen 5-325 mg tablet 1 - 2 tab PO .Q4-6H Qty: 40 0RF Miralax 17 gram/dose powder 17 g PO DAILY PRN (Reason: constipation) Qty: 119 0RF Discharge Orders: Discharge ED (Routine); Ordered 07/18/22 Ordered By: Renetta Zhou Patient Instructions: Opioid Safety, Pain Management Activity Restrictions/Additional Instructions: You sustained a concussion as a result of the head injury. You may experience dizziness, headache, forgetfulness and unsteadiness on your feet. The symptoms will resolve with time. You may apply ice to your forehead for 10 to 15 minutes, 2-3 times a day. Take [id number] Tylenol as needed for pain/headache. Follow-up with your primary care physician in a week for reevaluation. Return with new or worsening symptoms. Coding Level of Care Code ED Mission Planner for Franchesca Rosas
[2022-07-18 19:06] VITALS: BP 164/92; O2SAT 94
[2022-07-18 19:07] LABS: Glucose Point of Care 170 mg/dL (70-110)
[2022-07-18 19:09] LABS: Basophils % 0.2 %; Eosinophils % 0.1 %; Hematocrit 40.7 % (37.0-47.0); Hemoglobin 13.6 g/dL (11.5-15.3); Lymphocytes # 1.9 10^3/uL (0.8-4.8); Lymphocytes % 14.2 %; Mean Corpuscular HGB Conc 33.4 g/dL (30.0-36.0); Mean Corpuscular Hemoglobin 30.1 pg (28.0-34.0); Mean Platelet Volume 10.4 fL (7.4-10.4); Monocytes # 0.7 10^3/uL (0.2-0.9); Monocytes % 5.1 %; Neutrophils # 10.68 10^3/uL (1.8-7.7); Neutrophils % 80.1 %; Nucleated Red Blood Cells % 0 %; Platelet Count 238 10^3/cmm (130-400); Red Blood Count 4.52 10^6/uL (4.1-5.3); Red Cell Distribution Width 12.6 % (12.1-15.1); White Blood Count 13.4 10^3/uL (4.0-10.0)
[2022-07-18] MEDS: sodium chloride 0.9% 1,000 ML 999 ML IV (19:11)
[2022-07-18 19:31] LABS: Alanine Aminotransferase 11 U/L (0-33); Albumin Level 4.4 g/dL (3.5-5.2); Alkaline Phosphatase 115 U/L (35-105); Blood Urea Nitrogen 20 mg/dL (8-23); Calcium 9.9 mg/dL (8.5-10.5); Carbon Dioxide 25 mmol/L (22-29); Chloride 99 mmol/L (98-107); Globulin 2.8 g/dL (1.3-4.6); Glucose 174 mg/dL (65-115); Osmolality Calculated 289 mOsm/kg (285-295); Sodium 136 mmol/L (136-145); Total Bilirubin 0.3 mg/dL (0.15-1.2); Total Protein 7.2 g/dL (6.6-8.7)
[2022-07-18 19:33] LABS: Anion Gap 15.6 (5-19); Aspartate Amino Transferase 15 U/L (0-32); Potassium 3.6 mmol/L (3.5-5.1)
== END 2022-07-18 21:29 | disposition home or self-care (01) ==
PROVIDERS: Emergency Provider Family Medicine
DX: S09.8XXA Other specified injuries of head, initial encounter (principal); S00.83XA Contusion of other part of head, initial encounter; S06.0XAA Concussion with loss of consciousness status unknown, initial encounter; Z79.4 Long term (current) use of insulin; E11.9 Type 2 diabetes mellitus without complications; I10 Essential (primary) hypertension; X58.XXXA Exposure to other specified factors, initial encounter
CPT/HCPCS: 36416; 70450; 72125; 80053; 82962; 85025; 96360; 99285; J7030

== ENCOUNTER 2022-11-29 08:15 | Outpatient (CLI) | payer MEDICARE, OTHER, SELFPAY ==
--- NOTE | 2022-11-29 08:52 | MM_ITS ---
WS: [id number] BILATERAL SCREENING DIGITAL TOMOSYNTHESIS MAMMOGRAM WITH CAD HISTORY: SCREENING COMPARISON: None available. Bilateral CC and MLO views with tomosynthesis and synthetic mammography submitted. Computer aided det ection analyzed. Breast composition: There are scattered areas of fibroglandular density. No suspicious masses, microc alcifications or architectural distortion. Benign scattered calcifications in each breast. MM/[place] [id number] IMPRESSION: BI-RADS: 2-Benign FOLLOW UP: 1 Year Follow-up
== END 2022-11-29 08:16 | disposition home or self-care (01) ==
LOC: RAD 08:20
PROVIDERS: PCP Nurse Practitioner Family; Visit Provider Nurse Practitioner Family
DX: Z12.31 Encounter for screening mammogram for malignant neoplasm of breast (principal)
CPT/HCPCS: 77063; 77067

== ENCOUNTER 2023-04-01 08:34 | Emergency (ER) | payer MEDICARE, OTHER, SELFPAY ==
[2023-04-01 08:45] VITALS: BP 180/111; RESP 18; TEMP 36.8; O2SAT 96
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
--- NOTE | 2023-04-01 15:11 | DCPLANNER ---
Referral was sent to ortho on 04-01-23 at 5023. Clinic to contact patient.
== END 2023-04-01 10:31 | disposition home or self-care (01) ==
PROVIDERS: Emergency Provider Family Medicine; PCP Nurse Practitioner Family
DX: S62.014A Nondisplaced fracture of distal pole of navicular [scaphoid] bone of right wrist, initial encounter for closed fracture (principal); Z79.4 Long term (current) use of insulin; E11.9 Type 2 diabetes mellitus without complications; I10 Essential (primary) hypertension; W18.39XA Other fall on same level, initial encounter
CPT/HCPCS: 73100; 73110; 99283

== ENCOUNTER 2023-04-05 06:00 | Outpatient (CLI) | payer MEDICARE, OTHER, SELFPAY | END 2023-04-05 06:01 | disposition home or self-care (01) | LOC: SOT 04-08 08:27 | PROVIDERS: PCP Nurse Practitioner Family; Visit Provider Student in an Organized Health Care Education/Training Program | DX: Z46.89 Encounter for fitting and adjustment of other specified devices (principal); S62.109D Fracture of unspecified carpal bone, unspecified wrist, subsequent encounter for fracture with routine healing; X58.XXXD Exposure to other specified factors, subsequent encounter; W18.30XA Fall on same level, unspecified, initial encounter; Y92.000 Kitchen of unspecified non-institutional (private) residence as the place of occurrence of the external cause; S62.101A Fracture of unspecified carpal bone, right wrist, initial encounter for closed fracture; M18.11 Unilateral primary osteoarthritis of first carpometacarpal joint, right hand; S62.001A Unspecified fracture of navicular [scaphoid] bone of right wrist, initial encounter for closed fracture | CPT/HCPCS: 97760; 99204; L3984 ==

== ENCOUNTER → 2023-04-05 08:11 | Outpatient (BNVA) | payer MEDICARE, OTHER, SELFPAY | PROVIDERS: PCP Nurse Practitioner Family; Referring Provider Family Medicine; Visit Provider Student in an Organized Health Care Education/Training Program | DX: S62.001A Unspecified fracture of navicular [scaphoid] bone of right wrist, initial encounter for closed fracture (principal) | CPT/HCPCS: 73110; 97760; 99204; L3984 ==

== ENCOUNTER → 2023-08-30 09:16 | Outpatient (BNVA) | payer MEDICARE, OTHER, SELFPAY | PROVIDERS: PCP Nurse Practitioner Family; Visit Provider Nurse Practitioner Family | DX: I10 Essential (primary) hypertension (principal); D64.9 Anemia, unspecified; E11.9 Type 2 diabetes mellitus without complications; E55.9 Vitamin D deficiency, unspecified; Z13.6 Encounter for screening for cardiovascular disorders; Z79.899 Other long term (current) drug therapy; F32.A Depression, unspecified | CPT/HCPCS: 80053; 80061; 81003; 82306; 82607; 82728; 82746; 83036; 84443; 85025; 86003; 86008 ==

== ENCOUNTER → 2023-09-03 11:29 | Outpatient (BNVA) | payer MEDICARE, OTHER, SELFPAY | PROVIDERS: PCP Nurse Practitioner Family; Visit Provider Nurse Practitioner Family | DX: Z13.6 Encounter for screening for cardiovascular disorders (principal); I10 Essential (primary) hypertension; D64.9 Anemia, unspecified; E11.9 Type 2 diabetes mellitus without complications; E55.9 Vitamin D deficiency, unspecified; Z79.899 Other long term (current) drug therapy | CPT/HCPCS: 81003 ==

== ENCOUNTER 2023-10-08 14:07 | Outpatient (CLI) | payer MEDICARE, OTHER, SELFPAY ==
--- NOTE | 2023-10-08 14:00 | USCV_ITS ---
Wilda Hussein Age: 78 Gender: F : 1945 Exam Date: 10/08/2023 14:54 Ordering Phys: KENYETTA Neville APRN SENIOR RESEARCH ENGINEER Technologist: CT [place] [facility] [place] Indication: htn BP: 140 / 90 HR: 74 Rhythm: Sinus Technical Quality: Adequate MEASUREMENTS (Male / Female) Normal Values 2D ECHO LVOT Diameter 2.0 cm LV Ejection Fraction MOD 4C 71.1 % LV Ejection Fraction MOD 2C 72.2 % LV Ejection Fraction 2C AL 76.7 % LA Diameter 3.5 cm RA Systolic Volume 4C AL 38.6 ml RA Systolic Volume 4C MOD 37.1 ml LA Sys Volume AL 60.9 cm cubed LA Sys Volume Index AL 35.1 cm cubed/m squared Aorta at Sinotubular Diameter 2.2 cm IVC Diameter 1.9 cm M-MODE LA Ao Ratio MM 1.4 AV Cusp Separation MM 1.2 cm DOPPLER AV Peak Velocity 317.0 cm/s LVOT Peak Velocity 85.0 cm/s AV Area Cont Eq vti 1.0 cm squared AV Area Cont Eq pk 0.9 cm squared MV Peak Velocity 123.0 cm/s MV Area PHT 2.6 cm squared Mitral E to A Ratio 0.5 TR Peak Velocity 159.0 cm/s TR Peak Gradient 10.1 mmHg TV Peak E Velocity 82.0 cm/s Right Atrial Pressure 3.0 mmHg Pulmonary Artery Systolic Pressu 13.1 mmHg PV Peak Velocity 119.0 cm/s FINDINGS Left Ventricle Left ventricle is normal. Left ventricular hypertrophy seen. LV systolic function is normal with EF of 60 to 65%. No regional wall motion abnormalities are seen. Grade 1 diastolic dysfunction. Right Ventricle Normal in size and function Right Atrium Normal in size Left Atrium Normal in size Mitral Valve Mild to moderate mitral annular calcification. Trace mitral regurgitation Aortic Valve Aortic valve is thickened. Moderate aortic stenosis with mean gradient of 26 mmHg and aortic valve area of 0.97 cm squared. Tricuspid Valve Insufficient TR jet to calculate RVSP. Pulmonic Valve Not well-visualized. Pericardium Normal Aorta Normal in size IVC Appears to be normal CONCLUSIONS Left ventricular hypertrophy is seen. LV systolic function is normal with EF of 60 to 65%. Grade 1 diastolic dysfunction. Trace mitral regurgitation Moderate aortic stenosis. No comparison studies are available Zafar Romero MD (Electronically Signed) Final Date: 19 Oct 2023 21:51 S
== END 2023-10-08 14:08 | disposition home or self-care (01) ==
PROVIDERS: PCP Nurse Practitioner Family; Visit Provider Nurse Practitioner Family
DX: I51.7 Cardiomegaly (principal); I50.30 Unspecified diastolic (congestive) heart failure; I35.0 Nonrheumatic aortic (valve) stenosis; I10 Essential (primary) hypertension; R01.1 Cardiac murmur, unspecified
CPT/HCPCS: 93306

== ENCOUNTER 2023-10-08 14:07 | Outpatient (CLI) | payer MEDICARE, OTHER, SELFPAY ==
--- NOTE | 2023-10-08 14:30 | USCV_ITS ---
Wilda Hussein Age: 78 Gender: F : 1945 Exam Date: 10/08/2023 14:54 Ordering Phys: KENYETTA Neville APRN ADVERTISING OPERATIONS COORDINATOR Technologist: CT [place] [facility] [place]ication: htn BP: 140 / 90 HR: 74 Rhythm: Sinus Technical Quality: Adequate MEASUREMENTS (Male / Female) Normal Values 2D ECHO LVOT Diameter 2.0 cm LV Ejection Fraction MOD 2C 72.2 % LV Ejection Fraction 2C AL 76.7 % LA Diameter 3.5 cm RA Systolic Volume 4C AL 38.6 ml RA Systolic Volume 4C MOD 37.1 ml LA Sys Volume AL 60.9 cm cubed LA Sys Volume Index AL 35.1 cm cubed/m squared Aorta at Sinotubular Diameter 2.2 cm IVC Diameter 1.9 cm M-MODE LA Ao Ratio MM 1.4 AV Cusp Separation MM 1.2 cm DOPPLER AV Peak Velocity 317.0 cm/s LVOT Peak Velocity 85.0 cm/s AV Area Cont Eq vti 1.0 cm squared AV Area Cont Eq pk 0.9 cm squared MV Peak Velocity 123.0 cm/s MV Area PHT 2.6 cm squared Mitral E to A Ratio 0.5 TR Peak Velocity 159.0 cm/s TR Peak Gradient 10.1 mmHg TV Peak E Velocity 82.0 cm/s Right Atrial Pressure 3.0 mmHg Pulmonary Artery Systolic Pressu 13.1 mmHg PV Peak Velocity 119.0 cm/s FINDINGS Left Ventricle Left ventricle is normal. Left ventricular hypertrophy seen. LV systolic function is normal with EF of 60 to 65%. No regional wall motion abnormalities are seen. Grade 1 diastolic dysfunction. Right Ventricle Normal in size and function Right Atrium Normal in size Left Atrium Normal in size Mitral Valve Mild to moderate mitral annular calcification. Trace mitral regurgitation Aortic Valve Aortic valve is thickened. Moderate aortic stenosis with mean gradient of 26 mmHg and aortic valve area of 0.97 cm squared. Tricuspid Valve Insufficient TR jet to calculate RVSP. Pulmonic Valve Not well-visualized. Pericardium Normal Aorta Normal in size IVC Appears to be normal CONCLUSIONS Left ventricular hypertrophy is seen. LV systolic function is normal with EF of 60 to 65%. Grade 1 diastolic dysfunction. Trace mitral regurgitation Moderate aortic stenosis. No comparison studies are available Zafar Romero MD (Electronically Signed) Final Date: 19 Oct 2023 21:51 S
== END 2023-10-08 14:08 | disposition home or self-care (01) ==
LOC: RAD 14:07
PROVIDERS: PCP Nurse Practitioner Family; Visit Provider Nurse Practitioner Family
DX: I10 Essential (primary) hypertension (principal); R01.1 Cardiac murmur, unspecified; I42.2 Other hypertrophic cardiomyopathy; I50.30 Unspecified diastolic (congestive) heart failure; I35.0 Nonrheumatic aortic (valve) stenosis
CPT/HCPCS: 93306

== ENCOUNTER → 2023-12-23 13:17 | Outpatient (BNVA) | payer MEDICARE, OTHER, SELFPAY | PROVIDERS: PCP Nurse Practitioner Family; Visit Provider Specialist | DX: S72.142D Displaced intertrochanteric fracture of left femur, subsequent encounter for closed fracture with routine healing; X58.XXXD Exposure to other specified factors, subsequent encounter | CPT/HCPCS: 73502; 99024 ==

== ENCOUNTER 2024-01-09 02:55 | Emergency (ER) | payer MEDICARE, OTHER, SELFPAY ==
[2024-01-09 02:59] VITALS: BP 144/97; PULSE 96; RESP 18; TEMP 36.6; O2SAT 96; BMI 23.6
[2024-01-09 03:05] VITALS: BP 144/97; PULSE 95; RESP 18; O2SAT 98
--- NOTE | 2024-01-09 03:09 | XRR_ITS ---
PROCEDURE INFORMATION: Exam: XR Abdomen Exam date and time: 01/09/2024 3:32 AM Age: 78 years old Clinical indication: Abdominal pain; Prior surgery; Surgery date: 6+ months; Surgery type: Hysterectomy, t-spine fusion, and 12/05/23. Left femoral nail; Additional info: Abd pain TECHNIQUE: Imaging protocol: Radiologic exam of the abdomen. Views: Frontal supine view of the abdomen. 1 View. COMPARISON: CR XR hip LT 2-3V wo/w pel* [id number] 12/23/2023 1:19 PM FINDINGS: Gastrointestinal tract: There is moderate stool seen throughout the colon. There is no bowel obstruction. Bones/joints: Patient is status post ORIF of the left hip. XR/XR abdomen 1V* [id number] IMPRESSION: No evidence of bowel obstruction or acute process.
[2024-01-09] MEDS: sodium chloride 0.9% 1,000 ML 999 ML IV (03:29)
[2024-01-09] MEDS: ondansetron 2 mg/ML SDV 2 mL 4 MG IVP (03:29)
[2024-01-09 03:31] LABS: Basophils % 0.3 %; Eosinophils # 0.1 10^3/uL (0.0-0.8); Eosinophils % 1.5 %; Hematocrit 43.9 % (36-47); Lymphocytes # 2.1 10^3/uL (0.8-4.8); Lymphocytes % 23.1 %; Mean Corpuscular HGB Conc 32.8 g/dL (30-55); Mean Corpuscular Hemoglobin 29.2 pg (27-33); Mean Platelet Volume 10.3 fL (7.4-10.4); Monocytes # 0.7 10^3/uL (0.2-0.9); Monocytes % 7.4 %; Neutrophils % 67.4 %; Nucleated Red Blood Cells % 0 %; Platelet Count 257 10^3/cmm (157-399); Red Blood Count 4.93 10^6/uL (3.85-5.65); Red Cell Distribution Width 13.2 % (12.1-15.1); White Blood Count 9.06 10^3/uL (3.29-11.43)
--- NOTE | 2024-01-09 03:46 | ED_ITS ---
HPI - Abdominal Pain 2 General: Chief Complaint: Abdominal Pain Stated Complaint: ABD\Left Leg Pain Time Seen by Provider: 01/09/24 02:59 History of Present Illness: 78-year-old female with recent hip surge ry who presents emergency room with abdominal pain and nausea. She said this been going on for few days now. She woke up with it and it seemed worse tonight. She is having some low suprapubic abdominal pain. She has been taking pain medications but she says she has been having normal bowel movements. No known fevers. No chest pain. No shortness of breath. No altered mental status. No focal motor deficits. Related Data Previous Rx's Medication Instructions Recorded Wheel Chair #1 ea 02/02/21 oxycodone 5 mg tablet 5 mg PO Q8H PRN Moderate To Severe 12/12/23 Pain 7 days #30 tabs amlodipine 10 mg tablet 10 mg PO DAILY 90 days #90 tabs 01/02/24 atorvastatin 10 mg tablet (Lipitor) 10 mg PO DAILY 90 days #90 tabs 01/02/24 donepezil 5 mg tablet 5 mg PO DAILY 90 days #90 tabs 01/02/24 lisinopril 10 mg tablet 10 mg PO DAILY 90 days #90 tabs 01/02/24 sitagliptin phosphate 100 mg 100 mg PO DAILY 90 days #90 tabs 01/02/24 tablet (Januvia) venlafaxine 37.5 mg 37.5 mg PO DAILY 90 days #90 caps 01/02/24 capsule,extended release 24 hr (Effexor XR) famotidine 40 mg tablet 40 mg PO DAILY #7 tabs 01/09/24 ondansetron 8 mg disintegrating 8 mg PO Q6H #14 tabs 01/09/24 tablet polyethylene glycol 3350 17 17 g PO DAILY #510 grams 01/09/24 gram/dose oral powder (Miralax) potassium chloride 20 mEq 40 meq (2 x 20 mEq) PO DAILY 5 01/09/24 tablet,extended release(part/cryst) days #7 tabs Allergies Allergy/AdvReac Type Severity Reaction Status Date / Time sulfamethoxazole Allergy unknown Verified 01/09/24 03:04 [From ] trimethoprim [From ] Allergy unknown Verified 01/09/24 03:04 Review of Systems 2 Narrative: Constitutional symptoms: Negative except as documented in HPI. Skin symptoms: Negative except as documented in HPI. Eye symptoms: Negative except as documented in HPI. ENMT symptoms: Negative except as documented in HPI. Respiratory symptoms: Negative except as documented in HPI. Cardiovascular symptoms: Negative except as documented in HPI. Gastrointestinal symptoms: Negative except as documented in HPI. Genitourinary symptoms: Negative except as documented in HPI. Musculoskeletal symptoms: Negative except as documented in HPI. Neurologic symptoms: Negative except as documented in HPI. Psychiatric symptoms: Negative except as documented in HPI. Endocrine symptoms: Negative except as documented in HPI. PFSH ED 2 PFSH: Medical History Closed intertrochanteric fracture of left femur Early onset Alzheimer dementia Aortic stenosis, moderate Trace mitral valve regurgitation Grade I diastolic dysfunction Left ventricular hypertrophy Murmur Enrolled in chronic care management please do not remove from active Chronic GERD Tick bite Nausea Anxiety and depression Anemia Diabetes Vitamin D deficiency Hypercholesteremia Seizure disorder Hypertension Seasonal allergies Surgical History S/P fusion of thoracic spine H/O total hysterectomy H/O basal cell carcinoma excision Family History Other No significant family history Social History Smoking and tobacco/nicotine status: never used tobacco/nicotine Alcohol intake: never Substance/Drug Use: never Lives independently: Yes Household members: family Marital status: Physical Exam 2 Narrative: EXAM NARRATIVE: General: Alert, no acute distress. Skin: Warm, dry. Head: Normocephalic, atraumatic. Neck: Supple, trachea midline. Eye: Extraocular movements are intact. Ears, nose, mouth and throat: mucosa moist. Cardiovascular: Regular, Normal peripheral perfusion. Respiratory: Lungs are clear to auscultation, respirations are non-labored, breath sounds are equal, Symmetrical chest wall expansion. Gastrointestinal: Soft, suprapubic pain, Non distended Musculoskeletal: Normal ROM, no deformity. Neurological: Alert and oriented, No focal neurological deficit observed. Psychiatric: Cooperative, appropriate mood & affect. Course 2 Vital Signs: Vital signs: Vital Signs Temperature 97.8 F 01/09/24 04:48 Pulse Rate 89 01/09/24 04:48 Respiratory Rate 12 01/09/24 04:48 Blood Pressure 179/89 01/09/24 04:48 Pulse Oximetry 98 01/09/24 04:48 Oxygen Delivery Me thod Room Air 01/09/24 03:52 MDM - Abdominal Pain Medical Decision Making Medical decision making: Differential diagnosis for patient with nausea: including but not limited to and based on the above HPI, review of systems and physical exam: Gastroenteritis. Gastritis. Enteritis. Either bacterial or viral. C. diff infection. Small bowel obstruction. Crohn's flare. Pancreatitis. Also concern for secondary dehydration and/or urinary tract infection. Orders placed to evaluate differential diagnosis based on the above differential, HPI and physical exam Abdomen x-ray: Nonspecific bowel gas pattern. No evidence of free air or obstruction. This was reviewed and interpreted by myself the emergency room physician. Lab Review: Laboratory results were reviewed and interpreted by myself the emergency room physician. Lab work is fairly unremarkable. No leukocytosis. No anemia. No renal failure. Potassium is slightly low at 2.9. Urinalysis shows no infection. I reviewed the patient's medical record. Reexamination: Patient remained stable. No increased work of breathing. No altered mental status. No focal motor deficits. Patient says she does feel somewhat better after fluids and Zofran. She tolerates p.o. water. Assessment and plan: Nausea Dehydration Hypokalemia. -IV Zofran and IV normal saline bolus in the emergency room. ? Discharged home - Discussed findings and plan with patient. Answered any questions. - All laboratory values were reviewed and interpreted personally by myself, the ER physician - All imaging was reviewed and interpreted personally by myself, the ER physician. - Evaluation and treatment of this problem were appropriate in the emergency setting Lab Data 01/09/24 03:21 01/09/24 03:21 Labs/Radiology: Laboratory Results WBC 9.06 10^3/uL (3.29-11.43) 01/09/24 03:21 RBC 4.93 10^6/uL (3.85-5.65) 01/09/24 03:21 Hgb 14.40 g/dL (11.27-16.99) 01/09/24 03:21 Hct 43.9 % (36-47) 01/09/24 03:21 MCV 89.0 fl (85-98) 01/09/24 03:21 MCH 29.2 pg (27-33) 01/09/24 03:21 MCHC 32.8 g/dL (30-55) 01/09/24 03:21 RDW 13.2 % (12.1-15.1) 01/09/24 03:21 Plt Count 257 10^3/cmm (157-399) 01/09/24 03:21 MPV 10.3 fL (7.4-10.4) 01/09/24 03:21 Neut % (Auto) 67.4 % 01/09/24 03:21 Lymph % (Auto) 23.1 % 01/09/24 03:21 [place] % (Auto) 7.4 % 01/09/24 03:21 Eos % (Auto) 1.5 % 01/09/24 03:21 Baso % (Auto) 0.3 % 01/09/24 03:21 Neut # (Auto) 6.10 10^3/uL (1.8-7.7) 01/09/24 03:21 Lymph # (Auto) 2.1 10^3/uL (0.8-4.8) 01/09/24 03:21 [place] # (Auto) 0.7 10^3/uL (0.2-0.9) 01/09/24 03:21 Eos # (Auto) 0.1 10^3/uL (0.0-0.8) 01/09/24 03:21 Baso # (Auto) 0.0 10^3/uL (0.0-0.1) 01/09/24 03:21 Nucleated RBC % (auto) 0 % 01/09/24 03:21 Nucleated RBCs # 0.0 /100WBC 01/09/24 03:21 Sodium 145 mmol/L (136-145) 01/09/24 03:21 Potassium 2.9 mmol/L (3.5-5.1) L 01/09/24 03:21 Chloride 106 mmol/L (98-107) 01/09/24 03:21 Carbon Dioxide 22 mmol/L (22-29) 01/09/24 03:21 Anion Gap 19.9 (5-19) H 01/09/24 03:21 BUN 7 mg/dL (8-23) L 01/09/24 03:21 Creatinine 0.7 mg/dL (0.5-0.9) 01/09/24 03:21 GFR Calculation Not Reportable 01/09/24 03:21 Glucose 176 mg/dL (65-115) H 01/09/24 03:21 Calculated Osmolality 302 mOsm/kg (285-295) H 01/09/24 03:21 Lactic Acid 1.6 mmol/L (0.5-2.2) 01/09/24 03:21 Calcium 9.6 mg/dL (8.5-10.5) 01/09/24 03:21 Total Bilirubin 0.6 mg/dL (0.15-1.2) 01/09/24 03:21 AST 12 U/L (0-32) 01/09/24 03:21 ALT 10 U/L (0-33) 01/09/24 03:21 Alkaline Phosphatase 239 U/L (35-105) H 01/09/24 03:21 C-Reactive Protein 3.0 mg/L (0.0-4.9) 01/09/24 03:21 Total Protein 7.0 g/dL (6.6-8.7) 01/09/24 03:21 Albumin 4.1 g/dL (3.5-5.2) 01/09/24 03:21 Globulin 2.9 g/dL (1.3-4.6) 01/09/24 03:21 Lipase 18 U/L (13-60) 01/09/24 03:21 Urine Color Yellow (Yellow) 01/09/24 04:07 Urine Appearance Cloudy (CLEAR) A 01/09/24 04:07 Urine pH 7.5 (5-7) 01/09/24 04:07 Ur Specific [place] 1.010 (1.005-1.030) 01/09/24 04:07 Urine Protein Trace (Negative) A 01/09/24 04:07 Urine Glucose (UA) Negative (Normal) 01/09/24 04:07 Urine Ketones Trace (Negative) 01/09/24 04:07 Urine Blood Negative (Negative) 01/09/24 04:07 Urine Nitrate Negative (Negative) 01/09/24 04:07 Urine Bilirubin Negative (Negative) 01/09/24 04:07 Urine Urobilinogen 1.0 mg/dL (Negative) 01/09/24 04:07 Ur Leukocyte Esterase Negative (Negative) 01/09/24 04:07 Urine RBC 0-2 /hpf (0-2) 01/09/24 04:07 Urine WBC 0-5 /hpf (0-5) 01/09/24 04:07 Ur Squamous Epith Cells 0-5 /hpf (0-5) 01/09/24 04:07 Amorphous Sediment Not Reportable 01/09/24 04:07 Urine Bacteria None seen /hpf (NONE) 01/09/24 04:07 Hyaline Casts 1.21 /lpf 01/09/24 04:07 XR interpretation done by ED provider, pending radiology final review Discharge Plan Discharge Patient Disposition: Home Clinical Impression: Nausea, Dehydration Condition: Stable Prescriptions: New Miralax 17 gram/dose powder 17 g PO DAILY Qty: 510 0RF Rx Instructions: Take 1 scoop daily while taking pain medications. ondansetron 8 mg tablet,disintegrating 8 mg PO Q6H Qty: 14 0RF Rx Instructions: Take 1/2-1 tab every 6 hours as needed for nausea and vomiting famotidine 40 mg tablet 40 mg PO DAILY Qty: 7 0RF potassium chloride 20 mEq tablet,ER particles/crystals 40 meq PO DAILY 5 Days Qty: 7 0RF No Action (DME) Wheel Chair See Rx Instructions .Route .MEDSUPPLY Qty: 1 0RF Rx Instructions: As directed lisinopril 10 mg tablet 10 mg PO DAILY 90 Days Qty: 90 0RF amlodipine 10 mg tablet 10 mg PO DAILY 90 Days Qty: 90 0RF atorvastatin [Lipitor] 10 mg tablet 10 mg PO DAILY 90 Days Qty: 90 0RF donepezil 5 mg tablet 5 mg PO DAILY 90 Days Qty: 90 0RF Januvia 100 mg tablet 100 mg PO DAILY 90 Days Qty: 90 0RF venlafaxine [Effexor XR] 37.5 mg capsule,extended release 24hr 37.5 mg PO DAILY 90 Days Qty: 90 1RF oxycodone 5 mg tablet 5 mg PO Q8H PRN (Reason: Moderate To Severe Pain) 7 Days Qty: 30 0RF Discharge Orders: Discharge ED (Routine); Ordered 01/09/24 Ordered By: Alma Hastings Referrals: KENYETTA Neville, FILLER SHREDDER HELPER [Primary Care Provider] - Discharge Diet: As Directed Discharge Activity: Increase activity as tolerated Patient Instructions: Acute Nausea and Vomiting (ED), Opioid Safety Activity Restrictions/Additional Instructions: Thank you for choosing [facility] for your healthcare needs today. Please realize this is an emergency room and that we are providing you with a medical screening exam and this may not be complete and all inclusive of all the testing and or work up that you may need to determine your ailment or severity of your illness. You have been screened and evaluated and felt safe for discharge. Health conditions do change or evolve sometimes and as such it is important that you follow up with your Primary Doctor to be re checked, 3-5 days is a general good time frame for follow up. You are always welcome to return to the ED for re assessment if your symptoms are worsening or you have new concerns Coding Level of Care Code ED [facility] [employer] for Franchesca Rosas
[2024-01-09 03:52] VITALS: BP 157/84; PULSE 84; RESP 16; O2SAT 99
[2024-01-09 03:52] LABS: Alanine Aminotransferase 10 U/L (0-33); Albumin Level 4.1 g/dL (3.5-5.2); Alkaline Phosphatase 239 U/L (35-105); Anion Gap 19.9 (5-19); Aspartate Amino Transferase 12 U/L (0-32); Blood Urea Nitrogen 7 mg/dL (8-23); Calcium 9.6 mg/dL (8.5-10.5); Carbon Dioxide 22 mmol/L (22-29); Chloride 106 mmol/L (98-107); Creatinine Clr Calc Pharmacy 53.7902; Globulin 2.9 g/dL (1.3-4.6); Glucose 176 mg/dL (65-115); Lipase 18 U/L (13-60); Osmolality Calculated 302 mOsm/kg (285-295); Sodium 145 mmol/L (136-145); Total Bilirubin 0.6 mg/dL (0.15-1.2)
[2024-01-09 03:53] LABS: Lactic Sepsis W/Reflex 1.6 mmol/L (0.5-2.2)
[2024-01-09 03:58] LABS: Potassium 2.9 mmol/L (3.5-5.1)
[2024-01-09 04:14] VITALS: BP 179/89; PULSE 92; RESP 16; O2SAT 98
[2024-01-09 04:19] LABS: Bilirubin Urine Negative (Negative); Blood Urine Negative (Negative); Glucose Urine UA Negative (Normal); Ketones Urine Trace (Negative); Leukocyte Esterase Urine Negative (Negative); Nitrate Urine Negative (Negative); Protein Urine Trace (Negative); Urine Appearance Cloudy (CLEAR); Urine Color Yellow (Yellow); pH Urine 7.5 (5-7)
[2024-01-09 04:24] LABS: Bacteria Urine None Seen /hpf; Hyaline Casts Urine 1.21 /lpf; RBC Urine 0-2 /hpf (0-2); Squamous Epithelial Cell Urine 0-5 /hpf (0-5); WBC Urine 0-5 /hpf (0-5)
[2024-01-09 04:38] VITALS: PULSE 89; RESP 12; O2SAT 98
[2024-01-09 04:48] VITALS: BP 179/89; PULSE 89; RESP 12; TEMP 36.6; O2SAT 98
== END 2024-01-09 04:50 | disposition home or self-care (01) ==
PROVIDERS: Emergency Provider Emergency Medicine; PCP Nurse Practitioner Family
DX: R11.0 Nausea (principal); E86.0 Dehydration; G30.0 Alzheimer's disease with early onset; F02.80 Dementia in other diseases classified elsewhere, unspecified severity, without behavioral disturbance, psychotic disturbance, mood disturbance, and anxiety; I10 Essential (primary) hypertension
CPT/HCPCS: 36415; 74018; 80053; 81001; 83605; 83690; 85025; 86140; 87040; 96374; 99285; J2405; J7030

== ENCOUNTER → 2024-01-20 10:20 | Outpatient (BNVA) | payer MEDICARE, OTHER, SELFPAY | PROVIDERS: PCP Nurse Practitioner Family; Visit Provider Specialist | DX: S72.142D Displaced intertrochanteric fracture of left femur, subsequent encounter for closed fracture with routine healing (principal); X58.XXXD Exposure to other specified factors, subsequent encounter | CPT/HCPCS: 73502; 99024 ==

== ENCOUNTER 2024-01-22 06:00 | Outpatient (CLI) | payer MEDICARE, OTHER, SELFPAY | END 2024-01-22 06:01 | LOC: SPT 01-23 11:46 | PROVIDERS: Visit Provider Specialist | DX: Z46.89 Encounter for fitting and adjustment of other specified devices (principal); M25.562 Pain in left knee | CPT/HCPCS: L1812 ==

== ENCOUNTER → 2024-01-22 15:06 | Outpatient (BNVA) | payer MEDICARE, OTHER, SELFPAY | PROVIDERS: PCP Nurse Practitioner Family; Visit Provider Specialist | DX: M17.12 Unilateral primary osteoarthritis, left knee (principal); Z46.89 Encounter for fitting and adjustment of other specified devices | CPT/HCPCS: 73560; 73565 ==

== ENCOUNTER → 2024-07-24 10:10 | Outpatient (BNVA) | payer MEDICARE, OTHER, SELFPAY | PROVIDERS: PCP Nurse Practitioner Family; Visit Provider Nurse Practitioner Family | DX: I10 Essential (primary) hypertension (principal); E55.9 Vitamin D deficiency, unspecified; F41.9 Anxiety disorder, unspecified; F32.A Depression, unspecified; E11.9 Type 2 diabetes mellitus without complications; D64.9 Anemia, unspecified; G30.0 Alzheimer's disease with early onset; F02.A0 Dementia in other diseases classified elsewhere, mild, without behavioral disturbance, psychotic disturbance, mood disturbance, and anxiety | CPT/HCPCS: 80053; 80061; 81003; 82306; 82607; 82728; 83036; 83550; 84443; 85025; 86200 ==

== ENCOUNTER → 2024-07-27 11:52 | Outpatient (BNVA) | payer MEDICARE, OTHER, SELFPAY | PROVIDERS: PCP Nurse Practitioner Family; Visit Provider Nurse Practitioner Family | DX: F41.9 Anxiety disorder, unspecified (principal); F32.A Depression, unspecified; I10 Essential (primary) hypertension; E11.9 Type 2 diabetes mellitus without complications; E55.9 Vitamin D deficiency, unspecified; D64.9 Anemia, unspecified; G30.0 Alzheimer's disease with early onset; F02.A0 Dementia in other diseases classified elsewhere, mild, without behavioral disturbance, psychotic disturbance, mood disturbance, and anxiety | CPT/HCPCS: 81003; 87086 ==

== ENCOUNTER → 2024-08-12 09:26 | Outpatient (BNVA) | payer MEDICARE, OTHER, SELFPAY | PROVIDERS: PCP Nurse Practitioner Family; Visit Provider Specialist | DX: S83.207A Unspecified tear of unspecified meniscus, current injury, left knee, initial encounter (principal); X58.XXXA Exposure to other specified factors, initial encounter | CPT/HCPCS: 73560; 73565; 99213 ==

== ENCOUNTER 2024-09-21 11:54 | Emergency (ER) | payer MEDICARE, OTHER, SELFPAY ==
--- NOTE | 2024-09-21 11:58 | CT_ITS ---
WS: [id number] CT HEAD NONCONTRAST HISTORY: Encephalopathy, altered mental status TECHNIQUE: Contiguous axial imaging performed through the brain. Bone and soft tissue windows. Sagittal and coronal reformats reviewed. All CT scans at [facility] use at least one of these dose optimization techniques: automated exposure control; mA and/or kV adjustment per patient size (includes targeted exams where dose is matched to clinical indication); or iterative reconstruction. DLP: 974.74 mGy.cm COMPARISON: 07/18/2022 No acute intracranial hemorrhage or edema. Mild atrophy and small vessel disease. Mild cerebellar atrophy. Small bilateral lacunar infarcts in the external capsules and RIGHT basal ganglia. Ventricles: Normal size with no hydrocephalus. No inferior displacement of the cerebellar tonsils. Paranasal sinuses: As visualized are clear. Mastoid air cells: Well pneumatized. Calvarium and scalp: No skull fracture. Small LEFT frontal scalp hematoma. CT/CT head wo con* [id number] IMPRESSION: 1. No acute intracranial hemorrhage or edema. 2. Small LEFT frontal scalp hematoma. 3. Mild atrophy and small vessel disease.
[2024-09-21 12:20] VITALS: BP 120/65; PULSE 81; RESP 16; TEMP 36.6; O2SAT 96; BMI 24.3
[2024-09-21 13:31] LABS: Basophils % 0.5 %; Eosinophils # 0.1 10^3/uL (0.0-0.8); Eosinophils % 1.4 %; Hematocrit 41.2 % (36-47); Lymphocytes # 1.8 10^3/uL (0.8-4.8); Mean Corpuscular HGB Conc 32.8 g/dL (30-55); Mean Corpuscular Hemoglobin 29.7 pg (27-33); Mean Corpuscular Volume 90.5 fl (85-98); Mean Platelet Volume 11.3 fL (7.4-10.4); Monocytes # 0.5 10^3/uL (0.2-0.9); Monocytes % 5.7 %; Neutrophils # 5.79 10^3/uL (1.8-7.7); Neutrophils % 69.9 %; Nucleated Red Blood Cells % 0 %; Platelet Count 223 10^3/cmm (157-399); Red Blood Count 4.55 10^6/uL (3.85-5.65); Red Cell Distribution Width 13.2 % (12.1-15.1); White Blood Count 8.28 10^3/uL (3.29-11.43)
--- NOTE | 2024-09-21 13:31 | W.ED.FALL ---
HPI - Fall General: Chief Complaint: Fall Stated Complaint: fall, hit head 10 days ago, RAINES, confusion Time Seen by Provider: 09/21/24 13:28 History of Present Illness: 79-year-old female with a history of recurrent UTIs, dementia, diastolic dysfunction, GERD, anxiety and depression, hyperlipidemia, seizures and hypertension who presents the emergency room after having had a fall about a week ago. She fell and hit her left forehead has bruising there. 2 black eyes. She says she was not evaluated for this. She is continue to have a headache and some mild confusion and so she came to the emergency room for evaluation. Related Data Home Medications ?Medication ?Instructions ?Recorded ?Confirmed ethosuximide 250 mg capsule 25 mg PO QID 07/24/24 09/21/24 gabapentin 300 mg capsule 300 mg PO TID 07/24/24 09/21/24 amlodipine 10 mg tablet 10 mg PO DAILY 09/21/24 09/21/24 atorvastatin 10 mg tablet 10 mg PO DAILY 09/21/24 09/21/24 donepezil 5 mg tablet 5 mg PO DAILY 09/21/24 09/21/24 lisinopril 10 mg tablet 10 mg PO DAILY 09/21/24 09/21/24 promethazine 25 mg tablet 25 mg PO DAILY PRN Nausea And 09/21/24 09/21/24 Vomiting Previous Rx's ?Medication ?Instructions ?Recorded venlafaxine 37.5 mg 37.5 mg PO DAILY 90 days #90 caps 01/02/24 capsule,extended release 24 hr (Effexor XR) Allergies Allergy/AdvReac Type Severity Reaction Status Date / Time sulfamethoxazole (From Allergy unknown Verified 08/12/24 09:28 ) trimethoprim (From ) Allergy unknown Verified 08/12/24 09:28 [facility] ED [facility]: Medical History Urinary tract infection Bilateral impacted cerumen Closed intertrochanteric fracture of left femur Early onset Alzheimer dementia Aortic stenosis, moderate Trace mitral valve regurgitation Grade I diastolic dysfunction Left ventricular hypertrophy Murmur Enrolled in chronic care management please do not remove from active Chronic GERD Tick bite Nausea Anxiety and depression Anemia Diabetes Vitamin D deficiency Hypercholesteremia Seizure disorder Hypertension Seasonal allergies Surgical History S/P fusion of thoracic spine H/O total hysterectomy H/O basal cell carcinoma excision Family History Other No significant family history Social History Smoking and tobacco/nicotine status: never used tobacco/nicotine Alcohol intake: never Substance/Drug Use: never Lives independently: Yes Household members: family Marital status: Course Vital Signs: Vital signs: Vital Signs Temperature 97.8 F 09/21/24 12:20 Pulse Rate 81 09/21/24 12:20 Respiratory Rate 16 09/21/24 12:20 Blood Pressure 120/65 09/21/24 12:20 Pulse Oximetry 96 09/21/24 12:20 Oxygen Delivery Me thod Room Air 09/21/24 12:20 MDM - Fall Medical Decision Making Medical decision making: Differential diagnosis including but not limited to and based on the above HPI, review of systems and physical exam: Concern for subdural hematoma or other intracranial hemorrhage. This is quite a ways out with her having some mild confusion and also rule out urine infection or other sources of infection or renal failure etc. Things that might cause some confusion in the elderly. Orders placed to evaluate differential diagnosis based on the above differential, HPI and physical exam CT head: No acute intracranial process. no intracranial hemorrhage, no evidence of infarct. no evidence of acute fracture.This was reviewed and interpreted by myself the ER physician. Lab Review: Laboratory results were reviewed and interpreted by myself the emergency room physician. Lab work is fairly unremarkable. No leukocytosis. No anemia. No renal failure. No urinary tract infection. I reviewed the patient's medical record. Reexamination: Patient remained stable. No increased work of breathing. No altered mental status. No focal motor deficits. Assessment and plan: Head injury - Discharged home - Discussed plan with patient. Answered any questions. - Evaluation and treatment of this problem were appropriate in the emergency setting. Lab Data 09/21/24 12:50 09/21/24 12:[address] 09/21/24 11:58 IMPRESSION: 1. No acute intracranial hemorrhage or edema. 2. Small LEFT frontal scalp hematoma. 3. Mild atrophy and small vessel disease. Laboratory Results WBC 8.28 10^3/uL (3.29-11.43) 09/21/24 12:50 RBC 4.55 10^6/uL (3.85-5.65) 09/21/24 12:50 Hgb 13.50 g/dL (11.27-16.99) 09/21/24 12:50 Hct 41.2 % (36-47) 09/21/24 12:50 MCV 90.5 fl (85-98) 09/21/24 12:50 MCH 29.7 pg (27-33) 09/21/24 12:50 MCHC 32.8 g/dL (30-55) 09/21/24 12:50 RDW 13.2 % (12.1-15.1) 09/21/24 12:50 Plt Count 223 10^3/cmm (157-399) 09/21/24 12:50 MPV 11.3 fL (7.4-10.4) H 09/21/24 12:50 Neut % (Auto) 69.9 % 09/21/24 12:50 Lymph % (Auto) 22.0 % 09/21/24 12:50 [place] % (Auto) 5.7 % 09/21/24 12:50 Eos % (Auto) 1.4 % 09/21/24 12:50 Baso % (Auto) 0.5 % 09/21/24 12:50 Neut # (Auto) 5.79 10^3/uL (1.8-7.7) 09/21/24 12:50 Lymph # (Auto) 1.8 10^3/uL (0.8-4.8) 09/21/24 12:50 [place] # (Auto) 0.5 10^3/uL (0.2-0.9) 09/21/24 12:50 Eos # (Auto) 0.1 10^3/uL (0.0-0.8) 09/21/24 12:50 Baso # (Auto) 0.0 10^3/uL (0.0-0.1) 09/21/24 12:50 Nucleated RBC % (auto) 0 % 09/21/24 12:50 Nucleated RBCs # 0.0 /100WBC 09/21/24 12:50 Sodium 142 mmol/L (136-145) 09/21/24 12:50 Potassium 3.1 mmol/L (3.5-5.1) L 09/21/24 12:50 Chloride 103 mmol/L (98-107) 09/21/24 12:50 Carbon Dioxide 26 mmol/L (22-29) 09/21/24 12:50 Anion Gap 16.1 (5-19) 09/21/24 12:50 BUN 10 mg/dL (8-23) 09/21/24 12:50 Creatinine 0.7 mg/dL (0.5-0.9) 09/21/24 12:50 GFR Calculation Not Reportable 09/21/24 12:50 Glucose 223 mg/dL (65-115) H 09/21/24 12:50 Calculated Osmolality 300 mOsm/kg (285-295) H 09/21/24 12:50 Lactic Acid 2.3 mmol/L (0.5-2.2) H 09/21/24 12:54 Calcium 9.2 mg/dL (8.5-10.5) 09/21/24 12:50 Total Bilirubin 0.3 mg/dL (0.15-1.2) 09/21/24 12:50 AST 11 U/L (0-32) 09/21/24 12:50 ALT 8 U/L (0-33) 09/21/24 12:50 Alkaline Phosphatase 144 U/L (35-105) H 09/21/24 12:50 Total Protein 7.1 g/dL (6.6-8.7) 09/21/24 12:50 Albumin 4.2 g/dL (3.5-5.2) 09/21/24 12:50 Globulin 2.9 g/dL (1.3-4.6) 09/21/24 12:50 Urine Color Yellow (Yellow) 09/21/24 13:44 Urine Appearance Clear (CLEAR) 09/21/24 13:44 Urine pH 5.5 (5-7) 09/21/24 13:44 Ur Specific [place] 1.023 (1.005-1.030) 09/21/24 13:44 Urine Protein Trace (Negative) A 09/21/24 13:44 Urine Glucose (UA) Negative (Normal) 09/21/24 13:44 Urine Ketones Trace (Negative) 09/21/24 13:44 Urine Blood Negative (Negative) 09/21/24 13:44 Urine Nitrate Negative (Negative) 09/21/24 13:44 Urine Bilirubin Negative (Negative) 09/21/24 13:44 Urine Urobilinogen 1.0 mg/dL (Negative) 09/21/24 13:44 Ur Leukocyte Esterase Negative (Negative) 09/21/24 13:44 Urine RBC 0-2 /hpf (0-2) 09/21/24 13:44 Urine WBC 0-5 /hpf (0-5) 09/21/24 13:44 Ur Squamous Epith Cells 0-5 /hpf (0-5) 09/21/24 13:44 Calcium Oxalate Crystal 0-4 /hpf H 09/21/24 13:44 Amorphous Sediment Not Reportable 09/21/24 13:44 Urine Bacteria None seen /hpf (NONE) 09/21/24 13:44 Hyaline Casts 6.17 /lpf 09/21/24 13:44 Influenza A (PCR) Negative (Negative) 09/21/24 13:41 Influenza Type B (PCR) Negative (Negative) 09/21/24 13:41 RSV (PCR) Negative (Negative) 09/21/24 13:41 SARS-CoV-2 (PCR) Negative (Negative) 09/21/24 13:41 All radiology interpretation(s) finalized by discharge Discharge Plan Discharge Patient Disposition: Home Clinical Impression: Head injury Fall Qualifiers: Encounter type: initial encounter Qualified Code(s): W19.XXXA - Unspecified fall, initial encounter Condition: Stable Prescriptions: No Action venlafaxine [Effexor XR] 37.5 mg capsule,extended release 24hr 37.5 mg PO DAILY 90 Days Qty: 90 1RF ethosuximide 250 mg capsule 25 mg PO QID gabapentin 300 mg capsule 300 mg PO TID donepezil 5 mg tablet 5 mg PO DAILY Rx Instructions: TAKE ONE TABLET BY MOUTH ONCE A DAY FOR MEMORY atorvastatin 10 mg tablet 10 mg PO DAILY Rx Instructions: TAKE ONE TABLET BY MOUTH ONCE A DAY FOR CHOLESTEROL amlodipine 10 mg tablet 10 mg PO DAILY Rx Instructions: TAKE ONE TABLET BY MOUTH ONCE A DAY FOR BLOOD PRESSURE lisinopril 10 mg tablet 10 mg PO DAILY Rx Instructions: TAKE ONE TABLET BY MOUTH ONCE A DAY FOR BLOOD PRESSURE promethazine 25 mg tablet 25 mg PO DAILY PRN (Reason: Nausea And Vomiting) Discharge Orders: Discharge ED (Routine); Ordered 09/21/24 Ordered By: Alma Hastings Referrals: KENYETTA Neville, BOBJ DEVELOPER [Primary Care Provider] - Discharge Diet: Usual diet Discharge Activity: Increase activity as tolerated Patient Instructions: Fall Prevention for Older Adults (ED), Opioid Safety, Pain Management Activity Restrictions/Additional Instructions: Thank you for choosing [facility] for your healthcare needs today. You have been screened and evaluated and felt safe for discharge. Health conditions do change or evolve sometimes and as such it is important that you follow up with your Primary Doctor to be re checked, 3-5 days is a general good time frame for follow up. You are always welcome to return to the ED for re assessment if your symptoms are worsening or you have new concerns Print Language: Slovenian Coding Level of Care Code ED Fluid Pump Operator for Franchesca Rosas
[2024-09-21 13:53] LABS: Lactic Sepsis W/Reflex 2.3 mmol/L (0.5-2.2)
[2024-09-21 13:54] LABS: Alanine Aminotransferase 8 U/L (0-33); Albumin Level 4.2 g/dL (3.5-5.2); Alkaline Phosphatase 144 U/L (35-105); Anion Gap 16.1 (5-19); Aspartate Amino Transferase 11 U/L (0-32); Blood Urea Nitrogen 10 mg/dL (8-23); Calcium 9.2 mg/dL (8.5-10.5); Carbon Dioxide 26 mmol/L (22-29); Chloride 103 mmol/L (98-107); Creatinine Clr Calc Pharmacy 53.6003; Globulin 2.9 g/dL (1.3-4.6); Glucose 223 mg/dL (65-115); Osmolality Calculated 300 mOsm/kg (285-295); Potassium 3.1 mmol/L (3.5-5.1); Sodium 142 mmol/L (136-145); Total Bilirubin 0.3 mg/dL (0.15-1.2); Total Protein 7.1 g/dL (6.6-8.7)
[2024-09-21 14:30] LABS: Influenza A NEGATIVE (Negative); Influenza B NEGATIVE (Negative); Respiratory Syncytial Virus Ce NEGATIVE (Negative); SARS-CoV-2 PCR NEGATIVE (Negative)
[2024-09-21 15:11] LABS: Bilirubin Urine Negative (Negative); Blood Urine Negative (Negative); Glucose Urine UA Negative (Normal); Ketones Urine Trace (Negative); Leukocyte Esterase Urine Negative (Negative); Nitrate Urine Negative (Negative); Protein Urine Trace (Negative); Specific Gravity, Urine 1.023 (1.005-1.030); Urine Appearance Clear (CLEAR); Urine Color Yellow (Yellow); pH Urine 5.5 (5-7)
[2024-09-21 15:14] LABS: Reflex Lactate Order REFLEX LACTIC ORDERD
[2024-09-21 15:16] LABS: Bacteria Urine None Seen /hpf; Hyaline Casts Urine 6.17 /lpf; RBC Urine 0-2 /hpf (0-2); Squamous Epithelial Cell Urine 0-5 /hpf (0-5); WBC Urine 0-5 /hpf (0-5)
[2024-09-21 15:37] LABS: UA Slide Review UA Slide Review Perf
[2024-09-21 15:38] LABS: Add Urine Culture? No; Calcium Oxalate Crystals Urine 0-4 /hpf
[2024-09-21 15:46] VITALS: BP 138/76; PULSE 78; O2SAT 99
[2024-09-21 16:06] VITALS: BP 138/76; PULSE 78; O2SAT 99
[2024-09-21 16:12] LABS: Lactic Acid level (Lactate) 1.4 mmol/L (0.5-2.2)
== END 2024-09-21 16:08 | disposition home or self-care (01) ==
PROVIDERS: Emergency Provider Emergency Medicine; PCP Nurse Practitioner Family
DX: S09.90XA Unspecified injury of head, initial encounter (principal); W19.XXXA Unspecified fall, initial encounter; Z11.52 Encounter for screening for COVID-19; E11.9 Type 2 diabetes mellitus without complications; I10 Essential (primary) hypertension
CPT/HCPCS: 36415; 70450; 80053; 81001; 83605; 85025; 87040; 87637; 99284

== ENCOUNTER → 2024-09-28 11:53 | Outpatient (BNVA) | payer MEDICARE, OTHER, SELFPAY | PROVIDERS: PCP Nurse Practitioner Family; Visit Provider Nurse Practitioner Family | DX: E87.6 Hypokalemia (principal) | CPT/HCPCS: 80053 ==

== ENCOUNTER 2024-11-20 10:57 | Emergency (ER) | payer MEDICARE, OTHER, SELFPAY ==
[2024-11-20 10:58] VITALS: BP 140/81; PULSE 104; RESP 16; TEMP 36.7; O2SAT 94; BMI 24.0
--- NOTE | 2024-11-20 11:03 | CT_ITS ---
WS: [id number] CT HEAD NONCONTRAST HISTORY: SZ with head trauma TECHNIQUE: Contiguous axial imaging performed through the brain. Bone and soft tissue windows. Sagittal and coronal reformats reviewed. All CT scans at [facility] use at least one of these dose optimization techniques: automated exposure control; mA and/or kV adjustment per patient size (includes targeted exams where dose is matched to clinical indication); or iterative reconstruction. DLP: 1018.88 mGy.cm COMPARISON: 09/21/2024 No acute intracranial hemorrhage, midline shift or mass effect. Mild atrophy and small vessel disease. Mild cerebellar atrophy. Small lacunar infarcts in the basal ganglia. Ventricles: Normal size with no hydrocephalus. Paranasal sinuses: As visualized are clear. Mastoid air cells: Well pneumatized. Calvarium and scalp: Mild hyperostosis frontalis interna. No skull fracture. LEFT frontal scalp hematoma has resolved since 09/21/2024. New small soft tissue contusion now over the RIGHT frontal bone. CT/CT head wo con* [id number] IMPRESSION: 1. No acute intracranial hemorrhage or edema. 2. Stable atrophy and small vessel disease. 3. New soft tissue contusion over the RIGHT frontal bone.
--- OUTSIDE RECORDS SUMMARY | 2024-11-20 11:30 | XMS_ITS | Clinical Summary ---
Author Organization [facility] de Address [address] [place] [address] Phone Care Team Providers Care Template Storage Clerk Name Role Phone Unavailable Primary Care Provider Unavailabl e Allergies Active Allergy Reactions Criticality Noted Date Comments Sulfa (Sulfonamide Antibiotics) Unknown 05/19/2024 Sulfamethoxazole-Trimeth oprim Other (See Comments) 10/29/2023 Causes falling Medications ethosuximide (ZARONTIN) 250 mg Capsule Take 250 mg by mouth every 4 hours. 08/21/2023 Active gabapentin (NEURONTIN) 300 mg capsule Take 300 mg by mouth 3 times daily. 10/02/2023 Active venlafaxine (EFFEXOR XR) 37.5 mg Extended Release 24 hour capsule Take 75 mg by mouth daily. 08/30/2023 Active ondansetron (ZOFRAN) 4 mg Tablet Take 4 mg by mouth every 8 hours as needed. 08/30/2023 Active donepeziL (ARICEPT) 5 mg tablet Take 5 mg by mouth daily at bedtime. 07/22/2023 Active atorvastatin (LIPITOR) 10 mg tablet Take 10 mg by mouth daily at bedtime. Active traZODone (DESYREL) 50 mg tablet Take 50 mg by mouth daily at bedtime. Take 1/2 to 1 at bedtime. Active amLODIPine (NORVASC) 10 mg tablet Take 10 mg by mouth daily. Active lisinopriL (PRINIVIL) 10 mg tablet Take 10 mg by mouth daily. Active promethazine (PHENERGAN) 25 mg tablet Take 1 Tablet (25 mg) by mouth every 6 hours as needed for Nausea. 20 Tablet 05/19/2024 Active Active Problems Problem Noted Date Diagnosed Date Acute cystitis with hematuria 12/04/2023 Closed comminuted intertroch anteric fracture of proximal end of left femur 12/04/2023 Encounters Date Type Department Care Team Description 11/03/2024 External Device Data [facility] ABSTRACTION Provider, Abstract 10/13/2024 External Device Data [facility] Provider, Abstract 09/22/2024 External Device Data [facility] ABSTRACTION Provider, Abstract from Last 3 Months Social History Tobacco Use Types Packs/Day Years Used Date Smoking Tobacco: Former Cigarettes Smokeless Tobacco: Never Tobacco Cessation:Counseling Given: Not Answered Alcohol Use Standard Drinks/Week Comments Never 0 (1 standard drink = 0.6 oz pur e alcohol) Feeling Safe Answer Date Recorded Are you in a relationship wi th someone who hurts you emotionally and/or physically? No 05/19/2024 Comments No Sex and Gender Information Value Date Recorded Sex Assigned at Not on file Legal Sex Female 5:34 PM CDT Gender Identity Not on file Sexual Orientation Not on file Last Filed Vital Signs Vital Sign Reading Time Taken Comments Blood Pressure 152/83 05/19/2024 5:00 AM [employer] [employer] Pulse 99 05/19/2024 5:00 AM [employer] Temperature 36.7 C (98.1 F) 05/19/2024 2:25 AM [employer] Respiratory Rate 16 05/19/2024 5:00 AM [employer] Oxygen Saturation 94% 05/19/2024 5:00 AM [employer] Inhaled Oxygen Concentration - - Weight 66.6 kg (146 lb 14.4 oz) 05/19/2024 2:25 AM [employer] Height 162.6 cm (5' 4 ) 05/19/2024 2:25 AM [employer] Body Mass Index 25.22 05/19/2024 2:25 AM [employer] Plan of Treatment Health Maintenance Due Date Last Done Comments DIABETES ANNUAL FOOT EXAM 1964 DIABETES ANNUAL RETINAL EXAM 1964 DIABETES MICROALBUMIN ANNUAL SCREEN 1964 LDL CHOLESTEROL ANNUAL 1964 DTAP/TDAP/TD VACCINES (1 - Tdap) 1965 PNEUMOCOCCAL VACCINE 50+ YEARS (1 of 2 - PCV) 05/20/19 65 OSTEOPOROSIS SCREENING 2011 RSV VACCINE (60+ or ) (1 - 1-dose 75+ series) 2021 ZOSTER VACCINE (2 of 2) 05/30/2022 04/04/2022 DIABETES HBA1C Q 6 MONTHS 12/12/2022 06/14/2022 INFLUENZA VACCINE (#1) 2023 04/04/2022 Insurance MEDICARE PART A AND B [email or web address] [facility]
--- OUTSIDE RECORDS SUMMARY | 2024-11-20 11:31 | XMS_ITS | Data Portability ---
Author Organization [facility], [facility] Address [address] [place] [address] Care Team Providers Care Export Clerk Name Role Phone TESSA COX Primary Care Provider [phone] Assessment Encounter Date Assessment Date Assessment LastModified by Organization Details LastModified Time 06/14/2022 06/14/2022 B12 injection given today. labs drawn-await. A1C in house-9.3. add back ozempic. enc to call if bs remains high. continue with CGM. also enc to restart donepezil. UA performed in house and normal. enc to keep fu with specialists. Follow up in 1 month B12 injection or sooner prn. [email or web address] Not available 06/14/2022 20:08:58 01/01/2023 01/01/2023 A1C in house- 6.5. change omeprazole to pantoprazole. add trazodone but discussed risks/side effects and enc to stop if any side effects. In house labs performed and discussed. await other labs fu 6 weeks for recheck or sooner prn. enc close check on bs and continue CGM bc will likely need to add back some injectables. [email or web address] Not available 01/01/2023 21:26:27 Plan of Treatment Reminders Order Date Submit Date Provider Last Modified By Organization Details Last Modified Time Details Appointments None recorded. Lab CBC w/ diff 2022 023 elina [facility], [address] [place], [address], 12/29/202 3 11:21:19 CMP, serum or plasma 2022 023 [facility], [address] [place], [address], 3 17:34:13 TSH + free T4, serum 2022 023 [facility], [address] [place], [address], 3 17:34:14 lipid panel, blood 2022 023 [facility], [address] [place] [address], [address], 3 19:25:31 vitamin B12 + folate, serum or blood 2022 023 [facility], [address] [place], [address], 3 17:34:15 HbA1c (hemoglobin A1c), blood 2022 023 [email or web address] [facility], [address] [place] [address], [address], 3 19:25:31 uric acid, serum or plasma 2022 023 [facility], [address] [place], [address], 3 12:39:12 HbA1c (hemoglobin A1c), blood 2022 023 [email or web address] [facility], [address] [place] [address], [address], 3 15:25:20 CBC w/ diff 2022 023 [facility], [address], [place], [address], 3 12:02:34 TSH + free T4, serum 2022 023 [facility], [address], [place], [address], 3 12:02:35 lipid panel, blood [address], [address] [place] [address], [place], [address], 3 15:39:19 HbA1c (hemoglobin A1c), blood [address], [address] [place] [address], [place], [address], 3 15:39:19 Hue Comprehensi ve Metabolic Panel [address], [address] [place] [address], [place], [address], 3 15:39:19 culture, urine 2022 023 [facility], [address], [place], [address], 3 11:32:43 urinalysis, microscopic 2022 023 [facility], [address], [place], [address], 3 17:19:12 CBC w/ diff 2022 023 [email or web address] [facility], [address], [place], [address], 3 14:04:10 CMP, serum or plasma 2022 023 [facility], [address] [place], [address], 3 17:23:14 lipid panel, serum 2022 023 [facility], [address] [place], [address], 3 17:23:15 TSH + free T4, serum 2022 023 [facility], [address] [place], [address], 3 17:23:15 urinalysis panel, auto [address], [address] [place] [address], [address], 3 20:09:03 HbA1c (hemoglobin A1c), blood [address], [address] [place] [address], [address], 3 20:09:04 Referral None recorded. Procedures None recorded. Surgeries None recorded. Imaging None recorded. Medication Orders donepezil 5 mg tablet 2022 023 [facility], [address] [place], [address], 4 14:20:58 trazodone 50 mg tablet 2022 023 [facility], [address] [place], [address], 3 16:52:53 ethosuximid e 250 mg capsule 2022 023 [facility], [address] [place], [place], [address], 4 12:02:01 meloxicam 15 mg tablet 2022 023 [facility], [facility] [address] [place], [place], [address], 4 14:26:26 Medrol (Ag) 4 mg tablets in a dose pack 2022 023 [facility], [facility] [address] [place], [place], [address], 3 15:45:29 gabapentin 300 mg capsule 2022 023 [facility], [facility] [place], [address], 3 16:52:53 lisinopril 40 mg tablet 2022 023 [facility], [facility] [place], [address], 4 17:19:38 verapamil ER (SR) 240 mg tablet,exte nded release 2022 023 [facility], [facility] [place], [address], 4 12:02:02 atorvastati n 10 mg tablet 2022 023 [facility], [facility] [place], [address], 3 16:52:52 pantoprazol e 40 mg tablet,nini yed release 2022 023 [facility], [facility] [place], [address], 3 11:16:00 trazodone 50 mg tablet 2022 023 [facility], [address] [facility], [place], [address], 17:19:54 pantoprazol e 40 mg tablet,nini yed release 2022 023 [facility], [address] [place], [address], 17:19:56 cyanocobala min (vit B-12) 1,000 mcg/mL injection solution 2022 023 [facility], [address] [place], [address], 20:09:03 Patient TargetsNo targets recorded. Patient Instructions Encounter Date Encounter Id Patient Instructions Last Modified By Organization Details Last Modified Time 06/14/2022 [id number] dementia: care instructions Not available 06/14/2022 20:09:03 helping A person with dementia: care instructions Not available 06/14/2022 20:09:04 heart-healthy diet: care instructions Not available 06/14/2022 20:09:04 Urinary Tract Infection (UTI) in Women: Care Instructions Not available 06/14/2022 20:09:03 walking for exercise: care instructions Not available 06/14/2022 20:09:04 epilepsy: care instructions Not available 06/14/2022 20:09:04 01/01/2023 [id number] dementia: care instructions Not available 01/01/2023 15:39:19 helping A person with dementia: care instructions Not available 01/01/2023 15:39:19 heart-healthy diet: care instructions Not available 01/01/2023 15:39:19 walking for exercise: care instructions Not available 01/01/2023 15:39:19 02/05/2023 [id number] heart-healthy diet: care instructions [email or web address] Not available 02/06/2023 22:27:59 walking for exercise: care instructions [email or web address] Not available 02/06/2023 22:27:59 RTC in 3 months for routine visit with labs and med refills. prudence Not available 02/06/2023 22:26:37 Plan of care discussed with patient, patient agreeable to plan of care. prudence Not available 02/06/2023 22:26:56 05/07/2023 [id number] heart-healthy diet: care instructions prudence Not available 05/08/2023 17:02:44 walking for exercise: care instructions prudence Not available 05/08/2023 17:02:44 RTC in 6 months for routine visit with labs and med refills. prudence Not available 05/08/2023 16:59:56 Plan of care discussed with patient, patient agreeable to plan of care. prudence Not available 05/08/2023 17:00:00 Reason for Referral None Reported. Results Created Date Observation Date Name Description Value Unit Range Abnormal Flag Note LastModifiedBy Organization Detail LastModifiedTime 06/14/19 23 06/14/2022 HbA1c (hemo globi n A1c), blood HbA1C 9.3% % 3.60-6 .20 Not Available [address], [address], 06/14/2022 16:33:15 06/14/19 23 06/14/2022 urina lysis panel , auto glucose TRACE abnormal Not Available [address], [address], 06/14/2022 16:33:25 06/14/19 23 06/14/2022 urina lysis panel , auto bilirubin NEGATI VE normal Not Available [address], [address], 06/14/2022 16:33:25 06/14/19 23 06/14/2022 urina lysis panel , auto ketone NEGATI VE normal Not Available [address], [address], 06/14/2022 16:33:25 06/14/19 23 06/14/2022 urina lysis panel , auto specific gravity 1.025 normal Not Available [address], [address], 06/14/2022 16:33:25 06/14/19 23 06/14/2022 urina lysis panel , auto blood NEGATI VE normal Not Available [address], [address], 06/14/2022 16:33:25 06/14/19 23 06/14/2022 urina lysis panel , auto pH 6.0 normal Not Available [address], [address], 06/14/2022 16:33:25 06/14/19 23 06/14/2022 urina lysis panel , auto protein NEGATI VE normal Not Available [address], [address], 06/14/2022 16:33:25 06/14/19 23 06/14/2022 urina lysis panel , auto urobilinogen 0.2 E.U./ dL normal Not Available [address], [address], 06/14/2022 16:33:25 06/14/19 23 06/14/2022 urina lysis panel , auto nitrite NEGATI VE normal Not Available [address], [address], 06/14/2022 16:33:25 06/14/19 23 06/14/2022 urina lysis panel , auto leukocytes NEGATI VE normal Not Available [address], [address], 06/14/2022 16:33:25 06/14/19 23 06/14/2022 urina lysis panel , auto color NOT ENTERE D normal Not Available [facility] [address] [place], [address], 06/14/2022 16:33:25 06/14/19 23 06/14/2022 urina lysis panel , auto clarity NOT ENTERE D normal Not Available [facility] [address] [place], [address], 06/14/2022 16:33:25 06/15/19 23 06/15/2022 MICRO SCOPI C URINE EXAM urine WBC 0-3 /hpf 0-trac e / hpf abnormal Not Available [facility] [address] [place], [address], 06/15/2022 17:19:12 06/15/19 23 06/15/2022 MICRO SCOPI C URINE EXAM urine RBC None Seen /hpf 0-trac e / hpf Not Available [facility] [address] [place], [address], 06/15/2022 17:19:12 06/15/19 23 06/15/2022 MICRO SCOPI C URINE EXAM urine epithelials 0-3 /hpf 0-trac e/ hpf abnormal Not Available [facility] [address] [place], [address], 06/15/2022 17:19:12 06/15/19 23 06/15/2022 MICRO SCOPI C URINE EXAM urine bacteria Trace /hpf negati ve abnormal Not Available [facility] [address] [place], [address], 06/15/2022 17:19:12 06/15/19 23 06/15/2022 MICRO SCOPI C URINE EXAM urine casts None Seen /hpf negati ve Not Available [facility] [address] [place], [address], 06/15/2022 17:19:12 06/15/19 23 06/15/2022 MICRO SCOPI C URINE EXAM urine crystals None Seen /hpf negati ve Not Available [facility] [address] [place], [address], 06/15/2022 17:19:12 06/15/19 23 06/15/2022 COMPR EHENS THOMAS METAB OLIC PANEL (CMP) sodium 141.5 mmol/ L 137.0 - 145.0 Not Available [facility] [address] [place], [address], 06/15/2022 17:23:14 06/15/19 23 06/15/2022 COMPR EHENS THOMAS METAB OLIC PANEL (CMP) potassium 3.65 mmol/ L 3.50 - 5.10 Not Available [facility] [address] [place], [address], 06/15/2022 17:23:14 06/15/19 23 06/15/2022 COMPR EHENS THOMAS METAB OLIC PANEL (CMP) chloride 100 mmol/ L 98 - 107 Not Available [facility] [address] [place], [address], 06/15/2022 17:23:14 06/15/19 23 06/15/2022 COMPR EHENS THOMAS METAB OLIC PANEL (CMP) eco2 31 mmol/ L 22 - 30 high Not Available [facility] [address] [place], [address], 06/15/2022 17:23:14 06/15/19 23 06/15/2022 COMPR EHENS THOMAS METAB OLIC PANEL (CMP) BUN/urea 28 mg/dL 7 - 17 high Not Available [facility] [address] [place], [address], 06/15/2022 17:23:14 06/15/19 23 06/15/2022 COMPR EHENS THOMAS METAB OLIC PANEL (CMP) creatinine 0.79 mg/dL 0.52 - 1.04 Not Available [facility] [address] [place], [address], 06/15/2022 17:23:14 06/15/19 23 06/15/2022 COMPR EHENS THOMAS METAB OLIC PANEL (CMP) glucose 254 mg/dL 74 - 106 high Not Available [facility] [address] [place], [address], 06/15/2022 17:23:14 06/15/19 23 06/15/2022 COMPR EHENS THOMAS METAB OLIC PANEL (CMP) calcium 10.2 mg/dL 8.9 - 10.7 Not Available [facility] [address] [place], [address], 06/15/2022 17:23:14 06/15/19 23 06/15/2022 COMPR EHENS THOMAS METAB OLIC PANEL (CMP) albumin 4.5 g/dL 3.5 - 5.0 Not Available [facility] [address] [place], [address], 06/15/2022 17:23:14 06/15/19 23 06/15/2022 COMPR EHENS THOMAS METAB OLIC PANEL (CMP) AST 20 U/L 14 - 36 Not Available [facility] [address] [place], [address], 06/15/2022 17:23:14 06/15/19 23 06/15/2022 COMPR EHENS THOMAS METAB OLIC PANEL (CMP) alkaline phos 147 U/L 38 - 126 high Not Available [facility] [address] [place], [address], 06/15/2022 17:23:14 06/15/19 23 06/15/2022 COMPR EHENS HTOMAS METAB OLIC PANEL (CMP) total bilirubin <0.45 mg/dL 0.2 - 1.3 Not Available [facility] [address] [place], [address], 06/15/2022 17:23:14 06/15/19 23 06/15/2022 COMPR EHENS THOMAS METAB OLIC PANEL (CMP) total protein 7.2 g/dL 6.3 - 8.2 Not Available [facility] [address] [place], [address], 06/15/2022 17:23:14 06/15/19 23 06/15/2022 COMPR EHENS THOMAS METAB OLIC PANEL (CMP) eGFR 75 mL/mi n/1.7 3m2 >60 *eGFR Refer ence Value s Liss l: >60 mL/mi n/1.7 3m2 Abnor mal: < 60 mL/mi n/1.7 3m2 *eGFR Refer ence Value s Liss l: >60 mL/mi n/1.7 3m2 Abnor mal: < 60 mL/mi n/1.7 3m2 Not Available [facility] [address] [place], [address], 06/15/2022 17:23:14 06/15/19 23 06/15/2022 COMPR EHENS THOMAS METAB OLIC PANEL (CMP) A/G ratio 1.6 (calc ) 1.0 - 2.5 Not Available [facility] [address] [place], [address], 06/15/2022 17:23:14 06/15/19 23 06/15/2022 COMPR EHENS THOMAS METAB OLIC PANEL (CMP) globulin 2.7 g/dL_ (calc ) 1.9 - 3.7 Not Available [facility] [address] [place], [address], 06/15/2022 17:23:14 06/15/19 23 06/15/2022 COMPR EHENS THOMAS METAB OLIC PANEL (CMP) BUN/crea ratio 35 (calc ) 6 - 22 high Not Available [facility] [address] [place], [address], 06/15/2022 17:23:14 06/15/19 23 06/15/2022 COMPR EHENS THOMAS METAB OLIC PANEL (CMP) ALT 17 U/L 0 - 35 Not Available [facility] [address] [place], [address], 06/15/2022 17:23:14 06/15/19 23 06/15/2022 LIPID PANEL cholesterol 157 mg/dL 0 - 200 Not Available [facility] [address] [place], [address], 06/15/2022 17:23:15 06/15/19 23 06/15/2022 LIPID PANEL triglyceride s 615.0 mg/dL 0.0 - 199.0 high Not Available [facility] [address] [place], [address], 06/15/2022 17:23:15 06/15/19 23 06/15/2022 LIPID PANEL direct HDL 34 mg/dL 40 - 60 low Not Available [facility] [address] [place], [address], 06/15/2022 17:23:15 06/15/19 23 06/15/2022 LIPID PANEL chol/DHDL ratio 5 %_(ca lc) 0 - 5 Not Available [facility] [address] [place], [address], 06/15/2022 17:23:15 06/15/19 23 06/15/2022 LIPID PANEL LDL (calculated) 0 mg/dL 0 - 100 Not Available [facility] [address] [place], [address], 06/15/2022 17:23:15 06/15/19 23 06/15/2022 LIPID PANEL VLDL (calculated) 123 mg/dL (calc ) 0 - 30 high Not Available [facility] [address] [place], [address], 06/15/2022 17:23:15 06/15/19 23 06/15/2022 TSH TSH 1.440 mIU/L 0.465 - 4.680 Not Available [facility] [address] [place], [address], 06/15/2022 17:23:15 06/15/19 23 06/15/2022 TSH free T4 0.71 NG/mL 0.78 - 2.19 low Not Available [facility] [address] [place], [address], 06/15/2022 17:23:15 06/15/19 23 06/16/2022 CBC (INCL UDES DIFF/ PLT) absolute basophils 55 cells /uL 0-200 normal Not Available [facility] [address] [place], [address], 06/16/2022 11:37:24 06/15/19 23 06/16/2022 CBC (INCL UDES DIFF/ PLT) absolute eosinophils 165 cells /uL 15-500 normal Not Available [facility] [address] [place], [address], 06/16/2022 11:37:24 06/15/19 23 06/16/2022 CBC (INCL UDES DIFF/ PLT) absolute lymphocytes 2893 cells /uL 850-39 00 normal Not Available [facility] [address] [place], [address], 06/16/2022 11:37:24 06/15/19 23 06/16/2022 CBC (INCL UDES DIFF/ PLT) absolute monocytes 649 cells /uL 200-95 0 normal Not Available [facility] [address] [place], [address], 06/16/2022 11:37:24 06/15/19 23 06/16/2022 CBC (INCL UDES DIFF/ PLT) absolute neutrophils 7238 cells /uL 1500-7 800 normal Not Available [facility] [address] [place], [address], 06/16/2022 11:37:24 06/15/19 23 06/16/2022 CBC (INCL UDES DIFF/ PLT) basophils 0.5 % normal Not Available [facility] [address] [place], [address], 06/16/2022 11:37:24 06/15/19 23 06/16/2022 CBC (INCL UDES DIFF/ PLT) eosinophils 1.5 % normal Not Available [facility] [address] [place], [address], 06/16/2022 11:37:24 06/15/19 23 06/16/2022 CBC (INCL UDES DIFF/ PLT) hematocrit 43.4 % 35.0-4 5.0 normal Not Available [facility] [address] [place], [address], 06/16/2022 11:37:24 06/15/19 23 06/16/2022 CBC (INCL UDES DIFF/ PLT) hemoglobin 14.6 g/dL 11.7-1 5.5 normal Not Available [facility] [address] [place], [address], 06/16/2022 11:37:24 06/15/19 23 06/16/2022 CBC (INCL UDES DIFF/ PLT) lymphocytes 26.3 % normal Not Available [facility] [address] [place], [address], 06/16/2022 11:37:24 06/15/19 23 06/16/2022 CBC (INCL UDES DIFF/ PLT) MCH 30.5 pg 27.0-3 3.0 normal Not Available [facility] [address] [place], [address], 06/16/2022 11:37:24 06/15/19 23 06/16/2022 CBC (INCL UDES DIFF/ PLT) MCHC 33.6 g/dL 32.0-3 6.0 normal Not Available [facility] [address] [place], [address], 06/16/2022 11:37:24 06/15/19 23 06/16/2022 CBC (INCL UDES DIFF/ PLT) MCV 90.8 fL 80.0-1 00.0 normal Not Available [facility] [address] [place], [address], 06/16/2022 11:37:24 06/15/19 23 06/16/2022 CBC (INCL UDES DIFF/ PLT) monocytes 5.9 % normal Not Available [facility] [address] [place], [address], 06/16/2022 11:37:24 06/15/19 23 06/16/2022 CBC (INCL UDES DIFF/ PLT) MPV 11.7 fL 7.5-12 .5 normal Not Available [facility] [address] [place], [address], 06/16/2022 11:37:24 06/15/19 23 06/16/2022 CBC (INCL UDES DIFF/ PLT) neutrophils 65.8 % normal Not Available [facility] [address] [place], [address], 06/16/2022 11:37:24 06/15/19 23 06/16/2022 CBC (INCL UDES DIFF/ PLT) platelet count 247 thous and/u L 140-40 0 normal Not Available [facility] [address] [place], [address], 06/16/2022 11:37:24 06/15/19 23 06/16/2022 CBC (INCL UDES DIFF/ PLT) RDW 12.7 % 11.0-1 5.0 normal Not Available [facility] [address] [place], [address], 06/16/2022 11:37:24 06/15/19 23 06/16/2022 CBC (INCL UDES DIFF/ PLT) red blood cell count 4.78 johnson on/uL 3.80-5 .10 normal Not Available [facility] [address] [place], [address], 06/16/2022 11:37:24 06/15/19 23 06/16/2022 CBC (INCL UDES DIFF/ PLT) white blood cell count 11.0 thous and/u L 3.8-10 .8 high Not Available [facility] [address] [place], [address], 06/16/2022 11:37:24 06/15/19 23 06/15/2022 CULTU RE, URINE , ROUTI NE source: urine Not Available [facility] [address] [place], [address], 06/17/2022 11:32:43 06/15/19 23 06/17/2022 CULTU RE, URINE , ROUTI NE culture, urine, routine SEE NOTE CULTU RE, URINE , ROUTI NE Micro Numbe r: [id number] Test Statu s: Final Speci men Sourc e: Urine Speci men Quali ty: Adequ ate Resul t: 10,00 0-49, 000 CFU/m L of Non-u ropat hogen ic Gram posit thomas organ ism May repre sent colon izers from exter nal and inter nal genit vincent. No furth er testi ng (incl uding susce ptibi lity) will be perfo rmed. COMME NT: Addit ional non-p redom inati ng organ ism(s ) isola talita. These organ isms, commo nly found on exter nal and inter nal genit vincent, are consi dered colon izers . No furth er testi ng perfo rmed. Not Available [facility] [address] [place], [address], 06/17/2022 11:32:43 01/02/20 23 01/01/2023 lipid panel , blood TC 149 mg/dL 100-20 0 normal Not Available [address], [address], 01/01/2023 15:18:32 01/02/20 23 01/01/2023 lipid panel , blood HDL n/a mg/dL 29-67 Not Available [address], [address], 01/01/2023 15:18:32 01/02/20 23 01/01/2023 lipid panel , blood TRG >650 mg/dL 30-200 high Not Available [address] [place], [address], 01/01/2023 15:18:32 01/02/20 23 01/01/2023 lipid panel , blood LDL n/a mg/dL <100 Not Available [address] [place], [address], 01/01/2023 15:18:32 01/02/20 23 01/01/2023 lipid panel , blood non-HDL n/a mg/dL Not Available [address], [address], 01/01/2023 15:18:32 01/02/20 23 01/01/2023 lipid panel , blood TC/HDL n/a % Not Available [address], [address], 01/01/2023 15:18:32 01/02/20 23 01/01/2023 Picco lo Compr ehens thomas Metab olic Panel sodium 143 mmol/ L 128 to 145 normal Not Available [address], [address], 01/01/2023 15:18:25 01/02/20 23 01/01/2023 Picco lo Compr ehens thomas Metab olic Panel potassium 3.5 mmol/ L 3.6 to 5.1 abnormal Not Available [address], [address], 01/01/2023 15:18:25 01/02/20 23 01/01/2023 Picco lo Compr ehens thomas Metab olic Panel carbon dioxide 29 mmol/ L 18 to 33 normal Not Available [address], [address], 01/01/2023 15:18:25 01/02/20 23 01/01/2023 Picco lo Compr ehens thomas Metab olic Panel chloride 107 mmol/ L 98 to 108 normal Not Available [address], [address], 01/01/2023 15:18:25 01/02/20 23 01/01/2023 Picco lo Compr ehens thomas Metab olic Panel glucose 192 mg/dL 73 to 118 abnormal Not Available [address], [address], 01/01/2023 15:18:25 01/02/20 23 01/01/2023 Picco lo Compr ehens thomas Metab olic Panel calcium 10.2 mg/dL 8.0 to 10.3 normal Not Available [address], [address], 01/01/2023 15:18:25 01/02/20 23 01/01/2023 Picco lo Compr ehens thomas Metab olic Panel blood urea nitorgen mg/dL 7-22 Not Available [address], [address], 01/01/2023 15:18:25 01/02/20 23 01/01/2023 Picco lo Compr ehens thomas Metab olic Panel creatinine 0.7 mg/dL 0.6 to 1.2 normal Not Available [address], [address], 01/01/2023 15:18:25 01/02/20 23 01/01/2023 Picco lo Compr ehens thomas Metab olic Panel alkaline phosphatase 103 U/L 42 to 141 normal Not Available [address], [address], 01/01/2023 15:18:25 01/02/20 23 01/01/2023 Picco lo Compr ehens thomas Metab olic Panel alanine aminotransfe rase 14 U/L 10 to 47 normal Not Available [address], [address], 01/01/2023 15:18:25 01/02/20 23 01/01/2023 Picco lo Compr ehens thomas Metab olic Panel aspartate aminotransfe race U/L 11-38 Not Available [address], [address], 01/01/2023 15:18:25 01/02/20 23 01/01/2023 Picco lo Compr ehens thomas Metab olic Panel total bilirubin 0.8 mg/dL 0.2 to 1.6 normal Not Available [address], [address], 01/01/2023 15:18:25 01/02/20 23 01/01/2023 Picco lo Compr ehens thomas Metab olic Panel albumin 3.6 g/dL 3.3 to 5.5 normal Not Available [address], [address], 01/01/2023 15:18:25 01/02/20 23 01/01/2023 Picco lo Compr ehens thomas Metab olic Panel total protein 6.7 g/dL 6.4 to 8.1 normal Not Available [address], [address], 01/01/2023 15:18:25 01/02/20 23 01/01/2023 Picco lo Compr ehens thomas Metab olic Panel blood urea nitrogen 19 mg/dL 7 to 22 normal Not Available [address], [address], 01/01/2023 15:18:25 01/02/20 23 01/01/2023 Picco lo Compr ehens thomas Metab olic Panel aspartate aminotransfe rase 18 U/L 11 to 38 normal Not Available [facility] [address] [place], [address], 01/01/2023 15:18:25 01/02/20 23 01/01/2023 HbA1c (hemo globi n A1c), blood HbA1C 6.5 % normal Not Available [facility] [address] [place], [address], 01/01/2023 15:18:18 01/03/20 23 01/02/2023 CBC WBC 8.1 x10(3 )/uL 3.1 - 10.3 Not Available [facility] [address] [place], [address], 01/02/2023 12:02:33 01/03/20 23 01/02/2023 CBC RBC 4.36 x10(6 )/uL 3.20 - 4.60 Not Available [facility] [address] [place], [address], 01/02/2023 12:02:33 01/03/20 23 01/02/2023 CBC HGB 13.8 g/dL 9.9 - 13.6 high Not Available [facility] [address] [place], [address], 01/02/2023 12:02:33 01/03/20 23 01/02/2023 CBC HCT 41.4 % 30.2 - 42.3 Not Available [facility] [address] [place], [address], 01/02/2023 12:02:33 01/03/20 23 01/02/2023 CBC MCV 95.0 fL 78.6 - 102.2 Not Available [facility] [address] [place], [address], 01/02/2023 12:02:33 01/03/2001/02/2023 CBC MCH 31.7 pg 25.2 - 34.7 Not Available [facility] [address] [place], [address], 01/02/2023 12:02:33 01/03/20 23 01/02/2023 CBC MCHC 33.3 g/dL 31.3 - 35.4 Not Available [facility] [address] [place], [address], 01/02/2023 12:02:33 01/03/2001/02/2023 CBC platelet count 225 % 128 - 434 Not Available [facility] [address] [place], [address], 01/02/2023 12:02:33 01/03/2001/02/2023 CBC neut% 62.3 % 43.7 - 77.1 Not Available [facility] [address] [place], [address], 01/02/2023 12:02:33 01/03/2001/02/2023 CBC lymph% 24.9 % 15.0 - 45.8 Not Available [facility] [address] [place], [address], 01/02/2023 12:02:33 01/03/2001/02/2023 CBC mxd% 12.8 % 1.3 - 25.9 Not Available [facility] [address] [place], [address], 01/02/2023 12:02:33 01/03/2001/02/2023 CBC neut# 5.1 x10(3 )/uL 1.6 - 6.9 Not Available [facility] [address] [place], [place], [address], 01/02/2023 12:02:33 01/03/20 23 01/02/2023 CBC lymph# 2.0 x10(3 )/uL 0.9 - 2.8 Not Available [facility] [address] [place], [address], 01/02/2023 12:02:33 01/03/20 23 01/02/2023 CBC mxd# 1.0 x10(3 )/uL 0.1 - 1.6 Not Available [facility] [address] [place], [address], 01/02/2023 12:02:33 01/03/20 23 01/02/2023 CBC RDW-SD 47.7 fL 35.3 - 48.9 Not Available [facility] [address] [place], [place], [address], 01/02/2023 12:02:33 01/03/20 23 01/02/2023 CBC RDW-CV 12.4 % 10.6 - 15.7 Not Available [facility] [address], [place], [place], [address], 01/02/2023 12:02:33 01/03/2001/02/2023 CBC MPV 10.7 fL 8.5 - 12.4 Not Available [facility] [address], [place], [place], [address], 01/02/2023 12:02:33 01/03/2001/02/2023 TSH TSH 1.720 mIU/L 0.465 - 4.680 Not Available [facility] [address], [place], [address], 01/02/2023 12:02:34 01/03/20 23 01/02/2023 TSH free T4 0.93 NG/mL 0.78 - 2.19 Not Available [facility] [address] [place], [address], 01/02/2023 12:02:34 02/06/20 23 02/06/2023 URIC ACID uric acid 6.00 mg/dL 2.50 - 6.20 Not Available [facility] [address] [place], [address], 02/06/2023 12:39:11 02/06/2002/05/2023 HbA1c (hemo globi n A1c), blood HbA1C 6.2 % 3.60-6 .20 Not Available [address], [place], [address], 02/05/2023 15:04:20 05/07/20 23 05/08/2023 COMPR EHENS THOMAS METAB OLIC PANEL (CMP) sodium 143.5 mmol/ L 137.0 - 145.0 Not Available [facility] [address] [place], [address], 05/08/2023 17:34:13 05/07/20 23 05/08/2023 COMPR EHENS THOMAS METAB OLIC PANEL (CMP) potassium 3.35 mmol/ L 3.50 - 5.10 low Not Available [facility] [address] [place], [address], 05/08/2023 17:34:13 05/07/20 23 05/08/2023 COMPR EHENS THOMAS METAB OLIC PANEL (CMP) chloride 104 mmol/ L 98 - 107 Not Available [facility] [address] [place], [address], 05/08/2023 17:34:13 05/07/20 23 05/08/2023 COMPR EHENS THOMAS METAB OLIC PANEL (CMP) eco2 29 mmol/ L 22 - 30 Not Available [facility] [address] [place], [address], 05/08/2023 17:34:13 05/07/20 23 05/08/2023 COMPR EHENS THOMAS METAB OLIC PANEL (CMP) BUN/urea 15 mg/dL 7 - 17 Not Available [facility] [address] [place], [address], 05/08/2023 17:34:13 05/07/20 23 05/08/2023 COMPR EHENS THOMAS METAB OLIC PANEL (CMP) creatinine 0.64 mg/dL 0.52 - 1.04 Not Available [facility] [address] [place], [address], 05/08/2023 17:34:13 05/07/2005/08/2023 COMPR EHENS THOMAS METAB OLIC PANEL (CMP) glucose 146 mg/dL 74 - 106 high Not Available [facility] [address] [place], [address], 05/08/2023 17:34:13 05/07/20 23 05/08/2023 COMPR EHENS THOMAS METAB OLIC PANEL (CMP) calcium 9.7 mg/dL 8.9 - 10.7 Not Available [facility] [address] [place], [address], 05/08/2023 17:34:13 05/07/20 23 05/08/2023 COMPR EHENS THOMAS METAB OLIC PANEL (CMP) albumin 4.3 g/dL 3.5 - 5.0 Not Available [facility] [address] [place], [address], 05/08/2023 17:34:13 05/07/20 23 05/08/2023 COMPR EHENS THOMAS METAB OLIC PANEL (CMP) AST 18 U/L 14 - 36 Not Available [facility] [address] [place], [address], 05/08/2023 17:34:13 05/07/20 23 05/08/2023 COMPR EHENS THOMAS METAB OLIC PANEL (CMP) alkaline phos 133 U/L 38 - 126 high Not Available [facility] [address] [place], [address], 05/08/2023 17:34:13 05/07/20 23 05/08/2023 COMPR EHENS THOMAS METAB OLIC PANEL (CMP) total bilirubin <0.45 mg/dL 0.2 - 1.3 Not Available [facility] [address] [place], [address], 05/08/2023 17:34:13 05/07/20 23 05/08/2023 COMPR EHENS THOMAS METAB OLIC PANEL (CMP) total protein 6.7 g/dL 6.3 - 8.2 Not Available [facility] [address] [place], [address], 05/08/2023 17:34:13 05/07/20 23 05/08/2023 COMPR EHENS THOMAS METAB OLIC PANEL (CMP) eGFR 92 mL/mi n/1.7 3m2 >60 *eGFR Refer ence Value s Liss l: >60 mL/mi n/1.7 3m2 Abnor mal: < 60 mL/mi n/1.7 3m2 *eGFR Refer ence Value s Liss l: >60 mL/mi n/1.7 3m2 Abnor mal: < 60 mL/mi n/1.7 3m2 Not Available [facility] [address] [place], [address], 05/08/2023 17:34:13 05/07/20 23 05/08/2023 COMPR EHENS THOMAS METAB OLIC PANEL (CMP) A/G ratio 1.9 (calc ) 1.0 - 2.5 Not Available [facility] [address] [place], [address], 05/08/2023 17:34:13 05/07/20 23 05/08/2023 COMPR EHENS THOMAS METAB OLIC PANEL (CMP) globulin 2.3 g/dL_ (calc ) 1.9 - 3.7 Not Available [facility] [address] [place], [address], 05/08/2023 17:34:13 05/07/20 23 05/08/2023 COMPR EHENS THOMAS METAB OLIC PANEL (CMP) BUN/crea ratio 23 (calc ) 6 - 22 high Not Available [facility] [address] [place], [address], 05/08/2023 17:34:13 05/07/20 23 05/08/2023 COMPR EHENS THOMAS METAB OLIC PANEL (CMP) ALT 13 U/L 0 - 35 Not Available [facility] [address] [place], [address], 05/08/2023 17:34:13 05/07/20 23 05/08/2023 TSH TSH 2.090 mIU/L 0.465 - 4.680 Not Available [facility] [address] [place], [address], 05/08/2023 17:34:14 05/07/20 23 05/08/2023 TSH free T4 1.04 NG/mL 0.78 - 2.19 Not Available [facility] [address] [place], [address], 05/08/2023 17:34:14 05/07/20 23 05/08/2023 VITAM IN B12 vitamin B12 264 pg/mL 239 - 931 Not Available [facility] [address] [place], [address], 05/08/2023 17:34:15 05/07/20 23 05/08/2023 VITAM IN B12 folate 8.75 NG/mL 2.76 - 19.50 Not Available [facility] [address] [place], [address], 05/08/2023 17:34:15 05/07/2005/09/2023 CBC (INCL UDES DIFF/ PLT) absolute basophils 53 cells /uL 0-200 normal Not Available [facility] [address] [place], [address], 05/09/2023 10:58:52 05/07/20 23 05/09/2023 CBC (INCL UDES DIFF/ PLT) absolute eosinophils 143 cells /uL 15-500 normal Not Available [facility] [address] [place], [address], 05/09/2023 10:58:52 05/07/20 23 05/09/2023 CBC (INCL UDES DIFF/ PLT) absolute lymphocytes 2205 cells /uL 850-39 00 normal Not Available [facility] [address] [place], [address], 05/09/2023 10:58:52 05/07/20 23 05/09/2023 CBC (INCL UDES DIFF/ PLT) absolute monocytes 525 cells /uL 200-95 0 normal Not Available [facility] [address] [place], [address], 05/09/2023 10:58:52 05/07/20 23 05/09/2023 CBC (INCL UDES DIFF/ PLT) absolute neutrophils 4575 cells /uL 1500-7 800 normal Not Available [facility] [address] [place], [address], 05/09/2023 10:58:52 05/07/20 23 05/09/2023 CBC (INCL UDES DIFF/ PLT) basophils 0.7 % normal Not Available [facility] [address] [place], [address], 05/09/2023 10:58:52 05/07/2005/09/2023 CBC (INCL UDES DIFF/ PLT) eosinophils 1.9 % normal Not Available [facility] [address] [place], [address], 05/09/2023 10:58:52 05/07/20 23 05/09/2023 CBC (INCL UDES DIFF/ PLT) hematocrit 43.5 % 35.0-4 5.0 normal Not Available [facility] [address] [place], [address], 05/09/2023 10:58:52 05/07/20 23 05/09/2023 CBC (INCL UDES DIFF/ PLT) hemoglobin 14.0 g/dL 11.7-1 5.5 normal Not Available [facility] [address] [place], [address], 05/09/2023 10:58:52 05/07/20 23 05/09/2023 CBC (INCL UDES DIFF/ PLT) lymphocytes 29.4 % normal Not Available [facility] [address] [place], [address], 05/09/2023 10:58:52 05/07/20 23 05/09/2023 CBC (INCL UDES DIFF/ PLT) MCH 30.6 pg 27.0-3 3.0 normal Not Available [facility] [address] [place], [address], 05/09/2023 10:58:52 05/07/20 23 05/09/2023 CBC (INCL UDES DIFF/ PLT) MCHC 32.2 g/dL 32.0-3 6.0 normal Not Available [facility] [address] [place], [address], 05/09/2023 10:58:52 05/07/20 23 05/09/2023 CBC (INCL UDES DIFF/ PLT) MCV 95.0 fL 80.0-1 00.0 normal Not Available [facility] [address] [place], [address], 05/09/2023 10:58:52 05/07/20 23 05/09/2023 CBC (INCL UDES DIFF/ PLT) monocytes 7.0 % normal Not Available [facility] [address] [place], [address], 05/09/2023 10:58:52 05/07/20 23 05/09/2023 CBC (INCL UDES DIFF/ PLT) MPV 12.6 fL 7.5-12 .5 high Not Available [facility] [address] [place], [address], 05/09/2023 10:58:52 05/07/20 23 05/09/2023 CBC (INCL UDES DIFF/ PLT) neutrophils 61 % normal Not Available [facility] [address] [place], [address], 05/09/2023 10:58:52 05/07/20 23 05/09/2023 CBC (INCL UDES DIFF/ PLT) platelet count 203 thous and/u L 140-40 0 normal Not Available [facility] [address] [place], [address], 05/09/2023 10:58:52 05/07/20 23 05/09/2023 CBC (INCL UDES DIFF/ PLT) RDW 12.3 % 11.0-1 5.0 normal Not Available [facility] [address] [place], [address], 05/09/2023 10:58:52 05/07/20 23 05/09/2023 CBC (INCL UDES DIFF/ PLT) red blood cell count 4.58 johnson on/uL 3.80-5 .10 normal Not Available [facility] [address] [place], [address], 05/09/2023 10:58:52 05/07/20 23 05/09/2023 CBC (INCL UDES DIFF/ PLT) white blood cell count 7.5 thous and/u L 3.8-10 .8 normal Not Available [facility] [address] [place], [address], 05/09/2023 10:58:52 05/07/20 23 05/07/2023 lipid panel , blood TC 148 mg/dL 100-20 0 normal Not Available [address], [address], 05/07/2023 16:08:13 05/07/20 23 05/07/2023 lipid panel , blood HDL 36 mg/dL 29-67 normal Not Available [facility] [address] [place], [address], 05/07/2023 16:08:13 05/07/20 23 05/07/2023 lipid panel , blood TRG 287 mg/dL 30-200 high Not Available [address], [address], 05/07/2023 16:08:13 05/07/20 23 05/07/2023 lipid panel , blood LDL 55 mg/dL <100 normal Not Available [address], [address], 05/07/2023 16:08:13 05/07/20 23 05/07/2023 lipid panel , blood non-HDL 112 mg/dL Not Available [address], [address], 05/07/2023 16:08:13 05/07/20 23 05/07/2023 lipid panel , blood TC/HDL 4.1 % Not Available [address], [address], 05/07/2023 16:08:13 05/07/20 23 05/07/2023 HbA1c (hemo globi n A1c), blood HbA1C 6.5 % high Not Available [address], [address], 05/07/2023 09:48:19 01/04/2011/29/2022 MAMMO , scree joshua, bilat eral No observ ation record ed. [facility] [address] [place], [address], 01/08/2023 12:03:24 Result Notes None recorded. Problems Name Problem SNOMED Code Status Onset Date Resolution Date Notes Provider Name and Address Organization Details Recorded Time Type 2 diabetes mellitus without complication 621063183 Active 2019 [facility] 2 12:26:37 Hypertensive disorder 85496270 Active 2019 [facility] 2 12:26:29 Seizure disorder 494567150 Active 2019 [facility] 2 12:26:35 Hypercholester olemia 15778007 Active 2019 [facility] 2 12:26:27 Vitamin D deficiency 80454448 Active 2019 [facility] 2 12:26:39 Seasonal allergic rhinitis 524830747 Active 2019 [facility] 2 12:26:42 Mixed anxiety and depressive disorder 956051370 Active 2021 [facility] 2 14:50:01 Dementia 90927186 Active 2021 [facility] 2 15:01:29 Problem Notes None recorded. Procedures Surgical History Date Name Laterality Status Provider Name and Address Organization Details Recorded Time 05/07/20 23 venipuncture completed Natalya Crum [facility] 05/07/2023 15:39:33 02/06/20 23 Capillary Blood Draw completed Doris Camacho LPN [facility] 02/05/2023 14:25:11 01/02/20 23 venipuncture completed Huma Armas [facility] 01/01/2023 15:10:38 06/14/19 23 venipuncture completed Hermelindo Colvin [facility] 06/14/2022 17:18:50 02/28/20 22 venipuncture completed Hermelindo Colvin [facility] 02/27/2022 14:27:09 12/13/19 22 venipuncture completed Hermelindo Colvin [facility] 12/12/2021 15:58:01 11/17/19 22 venipuncture completed Olivia Castro [facility] 11/16/2021 10:58:52 11/08/19 22 venipuncture completed Lori Penaloza [facility] 11/07/2021 12:45:51 05/30/19 22 venipuncture completed Mary Johnson [facility] 05/30/2021 15:44:08 03/24/20 21 venipuncture completed Olivia Castro [facility] 03/24/2021 11:21:47 01/05/20 21 Punch Biopsy completed ROMAINE FARIAS NP [address], [address], [facility] 03/02/2021 18:10:41 01/05/20 21 Cryosurgery Warts/Skin Tags completed ROMAINE FARIAS NP [address], [address], [facility] 03/02/2021 17:53:15 12/07/19 21 venipuncture completed Lori Mix [facility] 12/06/2020 10:39:11 07/26/19 21 venipuncture completed Olivia Castro [facility] 07/25/2020 12:26:37 04/18/20 20 venipuncture completed Jaquelin Gooden [facility] 04/18/2020 14:54:41 03/27/20 20 excision of basal cell carcinoma completed Olivia Walkereney [facility] 06/01/2020 14:11:53 Total hysterectomy completed Tessa Cox [facility] 04/18/2020 14:20:52 Imaging Results None recorded. Procedure Notes None recorded. Medical Equipment None Reported. Allergies Allergen ID Allergen Name Allergen Category Reaction Reaction Severity Criticality Documentation Date Start Date Code Code System Note Provider Name and Address Organization Details Recorded Time 22508 sulfameth oxazole / trimethop rim medicatio n Not available Not available Not available 04/18/2020 27231 RxNorm Jaquelin Gooden [facility] 0 14:03:23 Medications Name Sig Start Date Stop Date Status Note LastModified by Organization Details LastModified Time Prescript ion - Renewal 02/05 completed [facility] Not Available Not Available Not Available Prescript ion - Prior Authoriza tion Request 02/05 completed Not Available Not Available Not Available donepezil 5 mg tablet TAKE ONE TABLET BY MOUTH ONCE A DAY AT BEDTIME FOR MEMORY active Not Available Not Available No t Available trazodone 50 mg tablet TAKE 1/2 TO 1 TABLET BY MOUTH AT BEDTIME NEEDED FOR SLEEP 2022 active Not Available Not Available Not Avai lable atorvasta tin 10 mg tablet TAKE ONE TABLET BY MOUTH ONCE A DAY AT BEDTIME FOR CHOLESTE ROL 2023 active Not Available Not Available Not Avai lable Glucagon Emergency Kit 1 mg solution for injection 1 vial IM x1 can repeat after 15 minutes for low blood sugar 2020 active Not Available Not Available Not Avai lable ethosuxim jeanette 250 mg capsule Take 1 capsule 4 times a day by oral route for 90 days. active Not Available Not Available No t Available valacyclo vir 1 gram tablet Take 1 tablet 3 times a day by oral route as directed for 7 days. 02/27 completed Not Available Not Available Not Available hydrocodo ne 5 mg-acetam inophen 325 mg tablet TAKE ONE TABLET BY MOUTH EVERY 8 HOURS NEEDED FOR PAIN 08/14 completed Not Available Not Available Not Available meloxicam 15 mg tablet Take 1 tablet every day by oral route for 90 days. active Not Available Not Available No t Available ondansetr on HCl 4 mg tablet TAKE 1 TABLET (4 MG TOTAL) BY MOUTH DAILY NEEDED FOR NAUSEA OR VOMITING . active Not Available Not Available No t Available verapamil ER 240 mg capsule,e xtended release Take 1 capsule every day by oral route. 05/11 completed added wrong one not able to refill properly Not Available Not Available Not Available venlafaxi ne ER 150 mg capsule,e xtended release 24 hr TAKE ONE CAPSULE BY MOUTH ONCE A DAY 02/27 completed Not Available Not Available Not Available potassium chloride ER 10 mEq tablet,ex tended release TAKE 1 TABLET (10 MEQ TOTAL) BY MOUTH DAILY. 03/24 completed Not Available Not Available Not Available Klor-Con 20 mEq oral packet DISSOLVE 1 PACKET IN 4 OUNCES WATER OR OTHER BEVERAGE & DRINK BY MOUTH TWICE DAILY active Not Available Not Available No t Available ciproflox acin 500 mg tablet Take 1 tablet every 12 hours by oral route for 10 days. 06/14 completed Not Available Not Available Not Available omeprazol e 40 mg capsule,d elayed release Take 1 capsule every day by oral route. 02/05 completed Not Available Not Available Not Available amlodipin e 10 mg tablet TAKE ONE TABLET BY MOUTH DAILY active Not Available Not Available No t Available hydrocodo ne 7.5 mg-acetam inophen 325 mg tablet 05/10 completed Not Available Not Available Not Available pantopraz ole 40 mg tablet,de layed release TAKE ONE TABLET BY MOUTH ONCE A DAY FOR STOMACH active Not Available Not Available No t Available cyanocoba carmelo (vit B-12) 1,000 mcg/mL injection solution Inject 1 mL every month by subcutan eous route for 365 days. 2022 active Not Available Not Available Not Avai lable lisinopri l 10 mg tablet TAKE ONE TABLET BY MOUTH DAILY active Not Available Not Available No t Available gabapenti n 300 mg capsule Take 1 capsule 3 times a day by oral route for 90 days. active Not Available Not Available No t Available verapamil ER (SR) 240 mg tablet,ex tended release TAKE ONE TABLET BY MOUTH EACH DAY active Not Available Not Available No t Available hydrochlo rothiazid e 25 mg tablet TAKE ONE TABLET BY MOUTH ONCE A DAY FOR FLUID RETENTIO N & BLOOD PRESSURE 2023 active Not Available Not Available Not Avai lable levofloxa chato 750 mg tablet TAKE 1 TABLET BY MOUTH DAILY 05/30 completed Not Available Not Available Not Available methylpre dnisolone 4 mg tablets in a dose pack Take 1 dose pk by oral route as directed . active Not Available Not Available No t Available Vitamin D2 1,250 mcg (50,000 unit) capsule Take 1 capsule every week by oral route for 90 days. 02/05 completed Not Available Not Available Not Available lisinopri l 40 mg tablet TAKE ONE TABLET BY MOUTH ONCE A DAY FOR BLOOD PRESSURE active Not Available Not Available No t Available loratadin e 10 mg tablet Take 1 tablet every day by oral route for 90 days. 08/14 completed Not Available Not Available Not Available verapamil ER 240 mg 24 hr capsule,e xtended release Take 1 capsule every day by oral route for 90 days. 08/26/ 2021 03/21 /2022 completed Not Available Not Available Not Available oxycodone 5 mg tablet take one tablet BY MOUTH EVERY 8 HOURS NEEDED for moderate TO SEVERE pain active Not Available Not Available No t Available Lexapro 10 mg tablet Take 1 tablet every day by oral route for 30 days. 04/04 completed Not Available Not Available Not Available Novolog FlexPen U-100 Insulin aspart 100 unit/mL (3 mL) subcutane ous 60-149 mg/dL = No Insulin1 50-199 mg/dL = 4 ozol926- 249 mg/dL = 6 txinn808 -299 mg/dL = 8 ojkdy114 -349 mg/dL = 10 units> 349 mg/dL = 12 units & call physicia n 01/01 completed Not Available Not Available Not Available cyclobenz aprine 5 mg tablet Take 1 tablet twice a day by oral route. 08/14 completed Not Available Not Available Not Available loratadin e 10mg qd 04/19 completed Not Available Not Available Not Available meloxicam 1 tab QD 04/19 completed Not Available Not Available Not Available verapamil 240mg ER 04/19 completed Not Available Not Available Not Available Vitamin D3 once a week 04/19 completed Not Available Not Available Not Available gabapenti n 04/18 completed Not Available Not Available Not Available Novolog FlexPen U-100 Insulin 24 units before each meal 07/11 completed Not Available Not Available Not Available Januvia 100 mg tablet TAKE ONE TABLET BY MOUTH DAILY active Not Available Not Available No t Available Lantus Solostar U-100 Insulin 100 unit/mL (3 mL) subcutane ous pen Inject 40 units every day by subcutan eous route for 30 days. 01/01 completed Not Available Not Available Not Available UltiCare Pen Needle 32 gauge x 5/32 USE DAILY WITH NOVOLOG, LANTUS AND OZEMPIC active Not Available Not Available No t Available Myrbetriq 25 mg tablet,ex tended release Take 1 tablet every day by oral route for 30 days. active Not Available Not Available No t Available Ozempic 0.25 mg or 0.5 mg (2 mg/1.5 mL) subcutane ous pen injector Inject 0.25 mg every week by subcutan eous route for 30 days. 04/04 completed Not Available Not Available Not Available Aimovig Autoinjec tor 70 mg/mL subcutane ous auto-inje ctor Inject 70 mg every month by subcutan eous route for 30 days. 05/10 completed Not Available Not Available Not Available Vitals Date Recorded Body height Body mass index (BMI) Body weight Body temperature Heart rate Oxygen saturation Oxygen saturation in Arterial blood by Pulse oximetry Respiratory rate Systolic blood pressure Diastolic blood pressure Provider Name and Address Organization Details Last Updated DateTime 3 165.1 cm 26.1 kg/m2 09630 g 98.1 [degF] 86 /min 96 % 96 % 18 /min 132 mm[Hg] 68 mm[Hg] Olivia Castro [facility] 3 17:03:06 Date Recorded Body height Body mass index (BMI) Body weight Body temperature Heart rate Oxygen saturation Oxygen saturation in Arterial blood by Pulse oximetry Respiratory rate Systolic blood pressure Diastolic blood pressure Provider Name and Address Organization Details Last Updated DateTime 3 165.1 cm 24.7 kg/m2 65236.7 2 g 97.1 [degF] 81 /min 97 % 97 % 18 /min 120 mm[Hg] 75 mm[Hg] Huma Armas [facility] 3 15:04:28 Date Recorded Body height Body mass index (BMI) Body weight Body temperature Heart rate Oxygen saturation Oxygen saturation in Arterial blood by Pulse oximetry Respiratory rate Systolic blood pressure Diastolic blood pressure Systolic blood pressure Diastolic blood pressure Provider Name and Address Organization Details Last Updated DateTime 3 165.1 cm 24.6 kg/m2 46742.6 7 g 99.1 [degF] 85 /min 98 % 98 % 18 /min 150 mm[Hg] 88 mm[Hg] 142 mm[Hg] 80 mm[Hg] Doris Camacho LPN [facility] 3 14:24:49 Date Recorded Body height Body mass index (BMI) Body weight Body temperature Heart rate Oxygen saturation Oxygen saturation in Arterial blood by Pulse oximetry Respiratory rate Systolic blood pressure Diastolic blood pressure Provider Name and Address Organization Details Last Updated DateTime 3 165.1 cm 24.6 kg/m2 90365.2 3 g 98.6 [degF] 86 /min 97 % 97 % 16 /min 138 mm[Hg] 86 mm[Hg] Zina Johnson [facility] 3 15:44:22 Social History Question Answer Notes LastModified by Organizat ion Details LastModified Time Tobacco Smoking Status Former Smoker Jaquelin Giacomo [facility] 04/18/2020 14:15:38 Do You Have An Advance Directive? No Information not available 06/01/2020 Do You Wear A Helmet When Biking? No Information not available 01/04/2021 Are You Blind Or Do You Have Difficulty Seeing? No Information not available 01/04/2021 Is Blood Transfusion Acceptable In An Emergency? Yes Information not available 01/04/2021 What Is Your Level Of Caffeine Consumption? Moderate Information not available 06/01/2020 How Much Tobacco Do You Chew? None Information not available 06/01/2020 Commercial Sex Work No Information not available 06/01/2020 In The 14 Days Before Symptom Onset, Have You Had Close Contact With A Laboratory-confir med COVID-19 While That Case Was Ill? No Information not available 06/01/2020 In The 14 Days Before Symptom Onset, Have You Had Close Contact With A Person Who Is Under Investigation For COVID-19 While That Person Was Ill? No Information not available 06/01/2020 Have You Been To An Area Known To Be High Risk For COVID-19? No Information not available 06/01/2020 Are You Deaf Or Do You Have Serious Difficulty Hearing? No Information not available 01/04/2021 What Type Of Diet Are You Following? REGULAR Information not available 06/01/2020 Which Illicit Or Recreational Drugs Have You Used? None Information not available 06/01/2020 Have You Processed Blood Or Body Fluids From An Ebola Virus Disease Patient Without Appropriate PPE? No Information not available 01/04/2021 Education 12 Information no t available 06/01/2020 What Is The Highest Grade Or Level Of School You Have Completed Or The Highest Degree You Have Received? [id number] Information not available 01/04/2021 Are There Any Guns Present In Your Home? No Information not available 06/01/2020 Hard Of Hearing Or Deaf In One Or Both Ears? No Information not available 06/01/2020 High Number Of Sexual Partners No Information not available 06/01/2020 History Of Inconsistent/no Condom Use No Information not available 06/01/2020 How Many Years Have You Used Illicit Or Recreational Drugs? 0 Information not available 06/01/2020 International Travel None Information not available 06/01/2020 Legally Blind In One Or Both Eyes? No Information no t available 06/01/2020 In The Past 6 Months Have You Fallen Yes Information not available 06/01/2020 Have You Ever Been Tested For Hepatitis C No Information not available 06/01/2020 Have You Had A Blood Transfusion Before 1991? No Information not available 06/01/2020 Have You Had Welder Assembler Dialysis? No Information not available 06/01/2020 Have You Ever Used Injectable Drugs, Even Once? No Information no t available 06/01/2020 Do You Have Tattoos Or Body Piercings? No Information not available 06/01/2020 Have You Had Close Contact With An Individual With Hepatitis C? No Information not available 06/01/2020 Have You Ever Had Sex For Drugs Or Money? No Information not available 06/01/2020 Have You Ever Had Unprotected Sex? Yes Information not available 06/01/2020 Have You Been Incarcerated For Longer Than 6 Months? No Information not available 06/01/2020 Have You Tested Positive For HIV? No Information no t available 06/01/2020 Do You Have A History Of Fist Fighting Or Combat Experience? No Information not available 06/01/2020 Medication List Reconciled Yes Information not available 06/01/2020 What Number (0-10) Best Describes How, During The Past Week, Has Interfered With Your General Activity? 7 Information not available 06/14/2022 What Number (0-10) Best Describes How, During The Past Week, Pain Has Interfered With Your Enjoyment In The Past Week 7 Information not available 06/14/2022 What Number (0-10) Best Describes Your Pain On Average In The Past Week 7 Information not available 06/14/2022 Total PEG Score 21 Informati on not available 06/14/2022 Most Recent Dental Visit 10/26/2019 Information not available 06/01/2020 Sexual Orientation Straight Or Heterosexual Information not available 06/01/2020 Gender Identity Female Informati on not available 06/01/2020 Eye Exam 04/26/2019 Information no t available 06/01/2020 Do You Feel Safe Yes Informat ion not available 06/01/2020 Marital Status Informatio n not available 06/01/2020 What Was The Date Of Your Most Recent Tobacco Screening? 05/07/2023 [email or web address] Information not available 05/07/2023 Mother With HIV? No Informat ion not available 06/01/2020 How Many Children Do You Have? 2 Information not available 01/04/2021 What Is Your Relationship Status? Information not available 01/04/2021 Do You Use Your Seat Belt Or Car Seat Routinely? Yes Information not available 01/04/2021 Seat Belts Used Routinely Yes Information not available 06/01/2020 Are You Sexually Active? No Information not available 06/01/2020 Sexual Partner Has HIV? No Information not available 06/01/2020 Sexual Partner Uses IV Drugs? No Information not available 06/01/2020 Smoke Alarm In Home Yes Information not available 06/01/2020 How Much Tobacco Do You Smoke? 0.5 PPD [email or web address] Information not available 04/18/2020 General Stress Level Medium Information not available 06/01/2020 Do You Use Sunscreen Routinely? Yes Information not available 06/01/2020 How Many Years Have You Smoked Tobacco? 10 [email or web address] Information not available 04/18/2020 Have You Used IV Drugs? No Information not available 06/01/2020 Do You Have Difficulty Walking Or Climbing Stairs? Yes Information not available 01/04/2021 Sex: Female Functional Status Question Answer Note LastModified by Organizat ion Details LastModified Time Do you or have you ever used smokeless tobacco? Never used smokeless tobacco [email or web address] Information not available 04/18/2020 Are you currently employed? No Information not available 01/04/2021 Do you have transportation difficulties? No Information not available 01/04/2021 Are you able to care for yourself? Yes Information n ot available 01/04/2021 Do you have difficulty dressing or bathing? No Information not available 01/04/2021 Do you or have you ever used e-cigarettes or vape? Never used electronic cigarettes [email or web address] Information not available 04/18/2020 What is your exercise level? Moderate Information not available 06/01/2020 Do you use any illicit or recreational drugs? No Information not available 01/04/2021 Do you or have you ever used any other forms of tobacco or nicotine? No [email or web address] Information not available 11/07/2021 What is your level of alcohol consumption? None Information not available 06/01/2020 Are you able to walk? [email or web address] Information not available 06/01/2020 Do you have difficulty doing errands alone? No Information not available 01/04/2021 What is your occupation? Retired Information not available 06/01/2020 Mental Status Question Answer Note LastModified by Organizat ion Details LastModified Time Do you feel stressed (tense, restless, nervous, or anxious, or unable to sleep at night)? [id number] Information not available 01/04/2021 Do you have difficulty concentrating, remembering or making decisions? No Information no t available 01/04/2021 Family History Relationship Description Onset Age of this Age Resolved Age Notes LastModified by Organization Details LastModified Time Father Alzheimer's disease 78 85 Not available 14:14:52 Father Diabetes mellitus [email or web address] Not available 14:15:04 Medical History Condition Response Other N Gout N Blood Diseases N Kidney Stones N Hyperthyroidism N Blood Transfusion N COPD N Depression N Incontinence N Edema N Endocrine Disorders N Anxiety Disorder N Muscle, Joint, or Bone Problems N Obesity N Vision or Eye Problems N Arthritis N Auditory Hallucinations N Infertility N Cancer Y Varicosities N Stroke N Headaches N Fibromyalgia N Kidney Disease N Abnormal Bleeding N Reproductive System Problems N Ear or Hearing Problems N Hospitalizations N Learning Disorder N Eating Disorder N Skin Problems N MRSA exposure N Constipation N Urinary Problems N Brain Injury N Visual Hallucinations N Tuberculosis N AIDS/HIV N Back Problems N Asthma N GERD/Reflux N Hepatitis N Pulmonary Embolism N Chronic Ear Infections N Chicken Pox N Autism Spectrum Disorder (ASD) N Thrombophilias N Thyroid Disease N Breast Cancer N Lung Disease N Hypothyroidism N Developmental or Behavioral Disorders N Defects or Inherited Disease N Breast Problem N Difficulty Swallowing N Anesthesia Complications N Deep Vein Thrombosis N Meniere's disease N Hearing Loss N Head Injury/Concussion N Congenital Anomalies N Abnormal Pap Smear N Endometriosis N Bladder or Kidney Problems N High Cholesterol Y Liver Disease N Nervous System Disorder N Psychiatric/Mental Health Condition N Schizophrenia N Allergies/Hayfever N Parkinson's Disease N GI Problems N ADD/ADHD N Anemia N Colon Polyps N Heart Attack (ND) N Diabetes Y Ovarian Cancer N Bedwetting N Seizures/Epilepsy Y Amnesia N Congestive Heart Failure (CHF) N Eczema N Dementia N Diverticulitis N Abuse/Domestic Violence N Cardiovascular N Tourette Syndrome N Hypertension N Pre-Eclampsia N Osteoporosis N Gynecological History Statement/Question Response Abnormal Pap N Post Menopausal Bleeding N STIs/STDs N HPV Vaccine N Most Recent Mammogram Age at First Child 21 Date of Last Colonoscopy Most Recent Bone Density Sexually Active? N Sexual Problems? N Desired Control Method Hysterectom y Hormone Replacement Therapy N Obstetrics History GPAL:G 2 P 2 0 0 2 Type Value Multiple Births 0 Full Term 2 Induced 0 Spontaneous 0 Living 2 Ectopics 0 Total 2 Immunizations Vaccine Type Date Status Note Provider Nam e and Address Organization Details Recorded Time Influenza, adjuvanted, quadrivalent, PF 04/04/2022 completed Tessa Cox [facility] 04/05/2022 09:49:45 zoster recombinant 04/04/2022 completed Tessa Cox [facility] 04/05/2022 09:49:45 Past Encounters Encounter ID Performer Location Encounter Start Date Encounter Closed Date Diagnosis/Indication Diagnosis SNOMED-CT Code Diagnosis ICD10 Code Diagnosis Note [id number] Robret Pino MD [address] [address] 04/18/2020 13:48:41 04/18/2020 18:10:59 Type 2 diabetes mellitus without complication 893336420 E11.9 Hypertensive disorder 38 767234 I10 Vitamin D deficiency 347 91968 E55.9 [id number] Robert Pino MD [address] [address] 6 06/01/2020 13:57:05 06/01/2020 16:35:22 Type 2 diabetes mellitus without complication 852429883 E11.9 Hypertensive disorder 38 947374 I10 [id number] Robert Pino MD [address] [address] 6 07/25/2020 12:09:12 07/25/2020 15:52:24 Hypercholesterolemia 88437231 E78.00 Hypertensive disorder 38 956386 I10 Seizure disorder 6811709 02 G40.909 Seasonal a llergic rhinitis 913368772 J30.2 Diet education 48721045 Z71.3 Exercises education, guidance, and counseling 267645656 Z71.82 Finding of body mass index 182068500 Z68.30 Type 2 sudhir betes mellitus without complication 040193449 E11.9 Memory impairment 442703 006 R41.3 [id number] Robert Pino MD [address] [address] 6 08/04/2020 09:54:47 08/04/2020 11:05:36 Vitamin B12 level below reference range 288308643 R79.9 [id number] Robert Pino MD [address] [address] 6 08/18/2020 11:48:14 08/18/2020 14:47:40 Follow-up visit 390908997 Z09 Migraine 24537128 G43.90 9 Nausea 519908216 R11.0 Urine cult ure - E. coli 762489614 R82.71 Memory impairment 832724 006 R41.3 Vitamin B deficiency 479 22238 E53.9 [id number] Robert Pino MD [address] [address] 6 09/01/2020 10:14:52 09/01/2020 12:59:00 Memory impairment 922345124 R41.3 Migraine 40101308 G43.90 9 Vitamin B deficiency 479 58918 E53.9 Hypertensive disorder 38 208328 I10 Seizure disorder 0114806 02 G40.004 [id number] Robert Pino MD [address] [address] 6 11/03/2020 15:04:05 11/03/2020 16:26:01 Vitamin B deficiency 12458722 E53.9 Hypertensive disorder 38 165002 I10 Type 2 sudhir betes mellitus without complication 492891796 E11.9 Leukocytosis 881098546 D 72.476 [id number] Robert Pino MD [address] [address] 6 11/04/2020 16:06:30 11/04/2020 16:48:34 Leukocytosis 575349140 D72.345 [id number] Robert Pino MD [address] [address] 6 11/17/2020 14:17:51 11/17/2020 15:17:02 Herpes zoster 6154002 B02.9 Hypertensive disorder 38 524477 I10 [id number] Robert Pino MD [address] [address] 6 12/06/2020 10:12:08 12/06/2020 14:24:58 Vitamin B deficiency 68259153 E53.9 Hypercholesterolemia 136 63239 E78.00 Hypertensive disorder 38 503134 I10 Hepatitis C screening 41 9840163 Z11.59 Type 2 sudhir betes mellitus without complication 770756027 E11.9 Migraine 23228140 G43.90 9 [id number] ROMAINE FARIAS NP [address] [address] 6 01/04/2021 14:13:13 01/04/2021 17:14:45 Dysplastic nevus of trunk 1940608766 79314 D23.5 2.5 mm punch biopsy on raised hyperpigme nted lesion right lateral abdomen Actinic keratosis 030601 007 L57.0 Tip of nose [id number] Robert Pino MD [address] [address] 6 01/19/2021 13:59:41 01/19/2021 17:30:38 Vitamin B deficiency 60396878 E53.9 Hypertensive disorder 38 187789 I10 Thoracic back pain 25408 8004 M54.6 [id number] Robert Pino MD [address] [address] 6 02/22/2021 14:19:35 02/23/2021 10:23:04 Vitamin B deficiency 92071483 E53.9 Thoracic back pain 26711 8004 M54.6 Dementia 98814358 F03.90 Hypertensive disorder 38 696865 I10 [id number] Robert Rolle DO [address] [address] 6 03/24/2021 10:51:54 03/27/2021 08:59:32 Hypercholesterolemia 75994774 E78.00 Hypertensive disorder 38 864424 I10 Type 2 sudhir betes mellitus without complication 492070141 E11.9 Vitamin B1 2 deficiency (non anemic) 73230352 E53.8 Thoracic back pain 49977 8004 M54.6 Migraine 42176615 G43.90 9 Postmenopausal state 764 85497 Z78.0 [id number] TESSA COX NP [address] [address] 04/25/2021 13:59:22 04/26/2021 15:09:43 Vitamin B12 deficiency (non anemic) 24108930 E53.8 Follow-up visit 62423539 9 Z09 Kidney stone 75342019 N2 0.0 Hypercholesterolemia 136 40483 E78.00 Hypertensive disorder 38 246365 I10 Type 2 sudhir betes mellitus without complication 771282357 E11.9 Neck pain 69279027 M54.2 [id number] Robert Rolle DO [address] [address] 6 05/30/2021 14:47:13 05/31/2021 12:47:31 Vitamin B12 deficiency (non anemic) 82233870 E53.8 Type 2 sudhir betes mellitus without complication 088246310 E11.9 Kidney stone 37988938 N2 0.0 Compressio n fracture of thoracic vertebra 6675560588 104 M48.54XS Hypertensive disorder 38 500055 I10 Seizure disorder 2056098 02 G40.203 [id number] Robert Rolle DO [address] [address] 6 07/06/2021 10:49:40 07/07/2021 09:05:18 Vitamin B12 deficiency (non anemic) 72574582 E53.8 Hypertensive disorder 38 810065 I10 Type 2 sudhir betes mellitus without complication 967937631 E11.9 History of calculus of kidney 553246829 Z87.631 [id number] Robert Rolle DO [address] [address] 6 07/06/2021 14:40:24 07/09/2021 21:10:59 [id number] Dipti Jimenez MD [address] [address] 08/14/2021 15:23:39 08/15/2021 14:41:08 Hypertensive disorder 48430900 I10 Vitamin B1 2 deficiency (non anemic) 15504309 E53.8 Type 2 sudhir betes mellitus without complication 294282493 E11.9 History of malignant basal cell neoplasm of skin 254935525 Z85.828 Migraine 88064009 G43.90 9 [id number] Dipti Jimenez MD [address] [address] 6 11/07/2021 12:17:19 11/08/2021 09:21:37 Type 2 diabetes mellitus without complication 927281856 E11.9 A1C-7.9 pt has been using 10 units of lantus on some days our rx says 35 units enc to start 20 units QD. Hypertensive disorder 38 458942 I10 Hypercholesterolemia 136 58438 E78.00 Vitamin B1 2 deficiency (non anemic) 10101047 E53.8 Increased frequency of urination 497140439 R35.0 [id number] Robert Rolle DO [address] [address] 6 11/14/2021 12:43:38 11/14/2021 13:43:26 Urinary tract infectious disease 18680050 N39.0 [id number] Robert Rolle DO [address] [address] 6 11/16/2021 10:45:37 11/16/2021 11:53:29 Acute urinary tract infection 226001149 N39.0 [id number] Dipti Jimenez MD [address] [address] 6 12/12/2021 13:49:20 12/13/2021 08:45:15 Vitamin B12 deficiency (non anemic) 40739744 E53.8 Multiple skin tags 80003 7009 L91.8 Hypertensive disorder 38 345352 I10 Nausea 341045447 R11.0 Abdominal pain 70887144 R10.9 Acute urin jayashree tract infection 269453270 N39.0 Type 2 sudhir betes mellitus without complication 937203838 E11.9 [id number] Dipti Jimenez MD [address] [address] 6 12/25/2021 14:17:17 12/26/2021 08:56:19 Overweight 907402198 E66.3 Patient was advised on heart-heal thy diet. Advised to exercise regularly (at least 4-5 times a week for 30 minutes) to help lose weight. 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 Dementia 47249258 F03.90 Vitamin D deficiency 347 37311 E55.9 [id number] Robert Rolle [address] [address] 6 04/04/2022 14:57:31 04/05/2022 11:15:15 Vitamin B12 deficiency (non anemic) 72703516 E53.8 Dementia 15948516 F03.90 Hypertensive disorder 38 024823 I10 Diet education 11633796 Z71.3 Exercises education, guidance, and counseling 198211765 Z71.82 Finding of body mass index 901144432 Z68.28 Administra tion of influenza vaccine 15535620 Z23 Active or passive immunization 552866184 Z23 Type 2 sudhir betes mellitus without complication 150779910 E11.9 [id number] Robert Rolle [address] [address] 6 05/10/2022 15:03:29 05/11/2022 10:32:27 Vitamin B12 deficiency (non anemic) 64007029 E53.8 Dementia 67020288 F03.90 Hypertensive disorder 38 827957 I10 ASCVD 32.4% Type 2 sudhir betes mellitus without complication 076134138 E11.9 Diet education 84552329 Z71.3 Exercises education, guidance, and counseling 748282012 Z71.82 Finding of body mass index 650477192 Z68.27 Renewal of prescription 059232370 Z76.0 Thoracic back pain 07152 8004 M54.6 Urinary tr act infectious disease 65490930 N39.0 Nausea 767701192 R11.0 [id number] Robert Rolle [address] [address] 6 06/14/2022 16:30:48 06/15/2022 09:06:34 Vitamin B12 deficiency (non anemic) 95388890 E53.8 Dementia 07571365 F03.90 Type 2 sudhir betes mellitus without complication 202927426 E11.9 Hypertensive disorder 38 918592 I10 ASCVD 32.4% Diet education 08002199 Z71.3 Exercises education, guidance, and counseling 338557116 Z71.82 Finding of body mass index 160840090 Z68.27 Seizure disorder 2752692 02 G40.909 Urinary tr act infectious disease 96560522 N39.0 [id number] Robert Rolle DO [address] [address] 6 06/15/2022 09:15:49 06/15/2022 14:43:54 Urinary tract infectious disease 28530998 N39.0 [id number] Rboert Rolle DO [address] [address] 01/01/2023 14:31:10 01/02/2023 09:38:04 Vitamin B12 deficiency (non anemic) 45947852 E53.8 Dementia 27253688 F03.90 Type 2 sudhir betes mellitus without complication 887305239 E11.9 Hypertensive disorder 38 665000 I10 ASCVD 32.4% Diet education 80649697 Z71.3 Exercises education, guidance, and counseling 305250007 Z71.82 Finding of body mass index 136451997 Z68.27 Gastroesop hageal reflux disease without esophagitis 252265753 K21.9 Hypercholesterolemia 136 03528 E78.00 Insomnia 552768165 G47.0 0 [id number] ENEDELIA HUNTLEY DO [address] [address] 02/05/2023 13:58:46 02/07/2023 09:09:45 Dementia 22989144 F03.90 Patient does have dementia. Her son helps take care of her. She is needing a refill on her Aricept today, script sent as below. Type 2 sudhir betes mellitus without complication 983823816 E11.9 A1c today is 6.2%, down from 6.5% at last visit.Disc ussed results with patient. Discussed with patient that she may continue to hold her injectable medication s for now and we will repeat her A1c in three months to re-evaluat e. She is going to continue to follow her diet and keep a check on her blood sugars. Hypertensive disorder 38 370153 I10 BP today is high at 142/80. She has not been taking her medication s due to being sick the past few days. Continue HTN meds at current dosage. Encouraged to keep log of BPs at home. Bring log to next appt. Patient will monitor blood pressure and report if unable to control or if they develop new symptoms.R efills sent as below. Insomnia 912920793 G47.0 0 Well controlled with trazodone. Patient is needing refills, script sent as below. Body mass index 20-24 - normal 351180800 Z68.24 BMI 24.6, normal weight. Diet education 13690379 Z71.3 Exercises education, guidance, and counseling 823461771 Z71.82 Pain of to e of left foot 0736239780 15309 M79.675 Suspect possible gout.Uric acid level today, will call with results.Wi ll treat with steroid pack as below.Disc ussed dietary changes in the event that this is gout, and that patient will likely need to take a daily medication to prevent gout flares. Advised patient to wait for lab results to confirm gout prior to worrying about diet changes. Hypercholesterolemia 136 33951 E78.00 Patient is advised on low fat, low calorie diet, weight loss and regular exercise. Also advised on medication compliance and regular labs every 3-6 months.Ref ill atorvastat in as below. Renewal of prescription 408600838 Z76.0 Needing refills, scripts sent as below. Thoracic back pain [id number] M54.6 Patient needing refill of gabapentin , script sent as below. Gastroesop hageal reflux disease without esophagitis [id number] K21.9 Avoid caffeine and spicy & acidic foods. Eat small, frequent meals instead of large meals and avoid lying down for at least 30 min after eating.Ref ill protonix as below. [id number] ENEDELIA HUNTLEY DO [address] [id number] 05/07/2023 15:30:19 05/09/2023 09:54:28 Type 2 diabetes mellitus without complication [id number] E11.9 A1c today is 6.5%, up from 6.2% at last visit.Disc ussed results with patient.Elidia mcdaniel is going to continue to follow her diet and keep a check on her blood sugars. Dementia [id number] F03.90 Patient does have dementia. Her son helps take care of her. Hypertensive disorder [id number] I10 BP today is 138/86.Rachid hernandezue HTN meds at current dosage. Encouraged to keep log of BPs at home. Bring log to next appt. Patient will monitor blood pressure and report if unable to control or if they develop new symptoms.L abs as below, will call with results. Hypercholesterolemia [id number] E78.00 Patient is advised on low fat, low calorie diet, weight loss and regular exercise. Also advised on medication compliance and regular labs every 3-6 months.Lip id panel in house today, discussed with patient.TR G high at 287 Body mass index 20-24 - normal [id number] Z68.24 BMI 24.6, normal weight. No significan t weight change today. Diet education [id number] Z71.3 Exercises education, guidance, and counseling [id number] Z71.82 Health Concerns Section Related Observation LastModified by Organization Detai ls LastModified Time None Recorded Concern Status LastModified by Organization Details LastModified Time None Recorded Advance Directives Directive N: Payers Insurance Date Sequence Insurance Name Policy Number Policy Wynne Covered Member ID Wynne Member ID Guarantor Name 06/28/2023 [facility] [place] - [place] A - [facility] (MEDICARE) Wilda Hussein [id number] Wilda Hussein 06/28/2023 1 MEDICARE B-[place]: [employer] Wilda Hussein [id number] Wilda Hussein 06/28/2023 2 [employer] (MEDICARE SUPPLEMENT) Wilda Hussein [id number] Wilda Hussein Notes Date Note Type Note Provider Name and Address Organization Details Recorded Time 06/14/2022 text/html here with her son.Here for her monthly B12 injection.Nausea has still continued even with stopping the ozempic, meloxicam, and donepezil.Glucose has been running higher at times.She was admitted and septic d/t a kidney stone in the last year. No symptoms currently Tessa [facility] [place] [facility] 06/14/2022 20:09:51 01/01/2023 text/html 1 month follow u p for b12 injection and labs.fell and had a concussion in july. Otherwise hasn't really been to the dr.had nausea and saw dr vale. It has persisted despite some med changes. has some gerd despite pirlosec.stopped her ozempic, lantus, novolog and bs has been 62-145 per her CGM.Otherwise doing ok. Has tried otc unisom and zquil but wants to discuss something different. Tessa [facility] 01/01/2023 21:27:16 02/05/2023 text/html Patient presents to the clinic with her son today for follow up A1c. She has type 2 diabetes, and she has not been taking her injectable medications, her Lantus, NovoLog, and Ozempic. She reports she stopped taking these on her own because her sugars were getting low, sometimes down into the 50s. She is also complaining today of her left great toe and second toe being red, swollen and really hurting her. She does not know of any injuries to these toes. The pain and swelling has been present for the past week. She has never been told that she had gout nor been tested for gout that she can recall. She states she has been sick over the last few days with some kind of bug, having some vomiting and diarrhea. States she has not been taking any of her medications due to this. She reports she is feeling better today. She states he BP is high because she hasn't been taking her meds. ALEXIS JACKSON NP [address], [phone], [facility] 02/06/2023 22:28:06 05/07/2023 text/html Patient presents to the clinic today with her human services care specialist for routine labs.Pt states that she went to the [employer] over the weekend and is really tired.Pt states that she did not fast for her blood work. States she never fasts.She denies any complaints or issues today and is feeling well overall. ALEXIS JACKSON NP [address], [phone], [facility] 05/08/2023 17:02:48 OBGyn Episode No OBEpisode recorded.
[2024-11-20 13:04] VITALS: BP 134/84; PULSE 90; O2SAT 98
--- NOTE | 2024-11-20 13:13 | W.ED.HEATRA ---
HPI - Head Injury General: Chief complaint: Head Injury Stated complaint: seizure and fell hitting head Time Seen by Provider: 11/20/24 13:03 Source: patient and family Limitations: no limitations History of Present Illness: This patient was transported to the emergency department by her son with whom she lives. She apparently had a generalized seizure this morning. Son reports that she seemed to be somewhat groggy this morning and told him that she did not sleep well last night. She then got out of bed and was moving around and then fell to the floor and a generalized seizure. She did not lose control of bowel or bladder but did bite her tongue. She also struck her forehead. She has been postictal in terms of slow to respond for short period of time but is now back at her baseline. She has a longstanding history of seizure disorder and takes ethosuximide as well as gabapentin for seizure control. Her doses have not been changed on those medications and she has been taking them for many years. She is followed by primary care and has seen his neurologist in the past but not for several years. No other recent illness or other issues that might of lowered her seizure threshold. She does not take any blood thinning medications. MD Complaint: head injury Location of injury: frontal Other Injuries: tongue Associated symptoms: Deny nausea, neck pain, syncope or vomiting Related Data Home Medications ?Medication ?Instructions ?Recorded ?Confirmed ethosuximide 250 mg capsule 25 mg PO QID 07/24/24 11/20/24 gabapentin 300 mg capsule 300 mg PO TID 07/24/24 11/20/24 amlodipine 10 mg tablet 10 mg PO DAILY 09/21/24 11/20/24 atorvastatin 10 mg tablet 10 mg PO DAILY 09/21/24 11/20/24 donepezil 5 mg tablet 5 mg PO DAILY 09/21/24 11/20/24 lisinopril 10 mg tablet 10 mg PO DAILY 09/21/24 11/20/24 promethazine 25 mg tablet 25 mg PO DAILY PRN Nausea And 09/21/24 11/20/24 Vomiting naproxen 500 mg tablet 500 mg PO BID pain/inflammation 11/20/24 11/20/24 venlafaxine 37.5 mg 37.5 mg PO DAILY 11/20/24 11/20/24 capsule,extended release 24 hr Previous Rx's ?Medication ?Instructions ?Recorded magnesium oxide 400 mg PO DAILY #30 tabs 09/28/24 potassium chloride 10 mEq oral 10 meq PO DAILY 30 days #30 ea 09/28/24 packet sumatriptan succinate 25 mg tablet See Rx Instructions PO .COMPLEX #9 09/28/24 (Imitrex) tabs Allergies Allergy/AdvReac Type Severity Reaction Status Date / Time sulfamethoxazole (From Allergy unknown Verified 09/28/24 11:01 ) trimethoprim (From ) Allergy unknown Verified 09/28/24 11:01 Review of Systems Const: Denies: fever(s) or chills Eyes: Denies: change in vision or blurry vision ENMT: Denies: throat pain, odynophagia, nasal discharge or nasal congestion Card: Denies: chest pain, palpitations, irregular heart rhythm, syncope or pre-syncope Resp: Denies: dyspnea, productive cough or non-productive cough GI: Denies: nausea, vomiting or diarrhea : Denies: flank pain, difficulty voiding or dysuria Musc: Denies: neck pain, back pain, extremity pain or extremity swelling Skin/Breast: Denies: rash Neuro: Reports: seizure-like activity; Denies: numbness in extremities or weakness in extremities Psych: Denies: anxiety Gregory/Lymph: Denies: easy bruising or easy bleeding PFSH ED PFSH: Medical History At risk for falls Hypokalemia Headache Migraine Urinary tract infection Bilateral impacted cerumen Closed intertrochanteric fracture of left femur Early onset Alzheimer dementia Aortic stenosis, moderate Trace mitral valve regurgitation Grade I diastolic dysfunction Left ventricular hypertrophy Murmur Enrolled in chronic care management please do not remove from active Chronic GERD Tick bite Nausea Anxiety and depression Anemia Diabetes Vitamin D deficiency Hypercholesteremia Seizure disorder Hypertension Seasonal allergies Surgical History S/P fusion of thoracic spine H/O total hysterectomy H/O basal cell carcinoma excision Family History Other No significant family history Social History Smoking and tobacco/nicotine status: never used tobacco/nicotine Alcohol intake: never Substance/Drug Use: never Lives independently: Yes Household members: family Marital status: Physical Exam Narrative: EXAM NARRATIVE: The patient is alert makes good eye contact answers questions appropriately and interacts with her son. He is also present and provides additional history. Const: COMMON NORMALS: no acute distress, patient oriented x3, healthy appearing and alert GENERAL APPEARANCE: cooperative HENMT: COMMON NORMALS: moist oral mucous membranes HEAD & SCALP: contusion (Right superior frontal); no laceration and no palpable skull fracture HEAD IMAGES:  1. Contusion no step-off FACE & SINUS: face symmetric MOUTH: tongue abnormal (Linear ecchymosis left lateral tongue no active bleeding) Eye: COMMON NORMALS: Equal, round and reactive pupils present, EOMs intact bilaterally and conjunctivae normal CONJUNCTIVA: Yes conjunctivae normal PUPIL: Yes Equal, round and reactive pupils present Neck/C-Spine: COMMON NORMALS: full ROM CERVICAL SPINE: Yes cervical ROM normal, No Cervical spine tenderness, No step off deformity, No Paracervical spasm and No Trapezius muscle tenderness OTHER: Patient is able to actively rotate side bend and forward bend and back bend her neck in normal ranges without discomfort Chest: COMMONS NORMALS: normal inspection of the chest Resp: COMMON NORMALS: normal respiratory effort, No use of accessory muscles and clear to auscultation bilaterally AUSCULTATION: clear to auscultation bilaterally Cardio: COMMON NORMALS: regular rate, regular rhythm and Peripheral pulses 2+ throughout RATE: regular rate RHYTHM: regular rhythm HEART SOUNDS: Murmur heart sound present (3/) systolic PERIPHERAL PULSES: Peripheral pulses 2+ throughout GI: COMMON NORMALS: Normal to inspection, nondistended, normoactive bowel sounds present and Soft to palpation PALPATION: Yes Soft to palpation Back/Pelvis: COMMON NORMALS: thoracic and lumbar spine normal to inspection, no thoracic nor lumbar tenderness and thoraco-lumbar ROM normal Extremity: COMMON NORMALS: normal to inspection, full ROM, capillary refill normal, no calf tenderness and no pedal edema Neuro: COMMON NORMALS: patient oriented x3, moves all extremities, no focal motor deficits and no sensory deficits noted SENSORIUM/ORIENTATION: Yes alert CRANIAL NERVES: Yes CN normal except as noted Psych: COMMON NORMALS: mental status grossly normal Skin: COMMON NORMALS: turgor normal GENERAL SKIN EXAM: turgor normal Course Vital Signs: Vital signs: Vital Signs Temperature 98.1 F 11/20/24 10:58 Pulse Rate 104 H 11/20/24 10:58 Respiratory Rate 16 11/20/24 10:58 Blood Pressure 140/81 11/20/24 10:58 Pulse Oximetry 94 11/20/24 10:58 Oxygen Delivery Me thod Room Air 11/20/24 10:58 MDM - Head Injury Medcial Decision Making Patient presented to the Emergency Department with no in the HPI. Patient has a longstanding history of seizure disorder. She apparently has breakthrough seizures 2-3 times a year over the past 2 to 3 years with by her son's history who she lives with. She has not had any alterations in her anticonvulsants for some time. She apparently has been taking them faithfully but did not have restful sleep last night per the history obtained from both she and her son. She had a onset of a seizure with a subsequent fall and a contusion to her right frontal scalp and a contusion to her left lateral tongue. No other findings on clinical exam. She is back at her baseline. A CT scan was obtained to ensure no evidence of skull fracture or intracranial hemorrhage or bleeding hematoma etc. This was reassuring. There was no evidence of skin laceration or other injury from her fall. She does not have any findings at this time to suggest that another potential etiology to her breakthrough seizure. She does have a little bit of room left on her ethosuximide or Zarontin dosing and I have advised her son to give her an extra 250 mg at night for a total of 1250 mg daily. She apparently has a neurologist in [place] and I have encouraged them to follow-up with that physician in the next 2 to 3 weeks for review of medications and possible adjustments if needed. She is clinically stable to be discharged with her son at this time. All questions were answered. Medical Records I reviewed the patient's medical records. Lab Data Radiology Impressions Head CT 11/20/24 11:03 IMPRESSION: 1. No acute intracranial hemorrhage or edema. 2. Stable atrophy and small vessel disease. 3. New soft tissue contusion over the RIGHT frontal bone. All radiology interpretation(s) finalized by discharge Discharge Plan Discharge Patient Disposition: Home Clinical Impression: Seizure disorder, Contusion of tongue Contusion of scalp Qualifiers: Encounter type: initial encounter Qualified Code(s): S00.03XA - Contusion of scalp, initial encounter Condition: Stable Prescriptions: No Action ethosuximide 250 mg capsule 25 mg PO QID gabapentin 300 mg capsule 300 mg PO TID magnesium oxide 400 mg magnesium tablet 400 mg PO DAILY Qty: 30 0RF sumatriptan succinate [Imitrex] 25 mg tablet See Rx Instructions PO .COMPLEX Qty: 9 0RF Rx Instructions: Take 1 tablet at onset of headache; if no relief may repeat 1 tablet after at least 2 hrs; max = 4 tablets in 24 hrs. potassium chloride 10 mEq packet 10 meq PO DAILY 30 Days Qty: 30 1RF donepezil 5 mg tablet 5 mg PO DAILY atorvastatin 10 mg tablet 10 mg PO DAILY amlodipine 10 mg tablet 10 mg PO DAILY lisinopril 10 mg tablet 10 mg PO DAILY promethazine 25 mg tablet 25 mg PO DAILY PRN (Reason: Nausea And Vomiting) venlafaxine 37.5 mg capsule,extended release 24hr 37.5 mg PO DAILY naproxen 500 mg tablet 500 mg PO BID Discharge Orders: Discharge ED (Routine); Ordered 11/20/24 Ordered By: Vinnie Maxwell Referrals: KENYETTA Neville, [employer] [Primary Care Provider, Family Practice] Discharge Diet: Usual diet Discharge Activity: Increase activity as tolerated Patient Instructions: Opioid Safety, Pain Management, Patient Portal & Davi Instructions Activity Restrictions/Additional Instructions: As we discussed your CT scan today did not reveal any evidence of bleeding inside your head or a fracture of your skull or other serious injuries. Your seizure likely as a result of your poor sleep last night without any other evidence today of other conditions. We recommend taking an extra ethosuximide or Zarontin at night for a total of 1250 mg daily. Continue all your other usual medications as prescribed. You should call your neurologist next week to arrange a follow-up in the next 2 to 3 weeks. If you develop any new symptoms or continued or recurrent seizures return to this emergency department for reevaluation. Print Language: Scottish Coding Level of Care Code ED Sheet Rock Sander for Franchesca Rosas
--- NOTE | 2024-11-20 13:34 | PC.NURSE ---
Spoke to Dr. Maxwell and okayed to cancel EKG order.
[2024-11-20 13:40] VITALS: BP 134/83; PULSE 75; O2SAT 96
== END 2024-11-20 13:41 | disposition home or self-care (01) ==
PROVIDERS: Emergency Provider Emergency Medicine; PCP Nurse Practitioner Family
DX: S00.03XA Contusion of scalp, initial encounter (principal); G40.909 Epilepsy, unspecified, not intractable, without status epilepticus; S00.532A Contusion of oral cavity, initial encounter; I10 Essential (primary) hypertension; W19.XXXA Unspecified fall, initial encounter
CPT/HCPCS: 70450; 99284